=== PATIENT | male | born 1935 | race Caucasian/White ===

== ENCOUNTER 2016-11-13 22:38 | Inpatient (IN) ==
[2016-11-13] MEDS ORDERED: Ipratropium/Albuterol Neb 3 ML IH ONE (22:52)
[2016-11-13] MEDS ORDERED: 0.9 % Sodium Chloride 1,000 ML ONE (22:54)
[2016-11-13 23:04] LABS: Basophils % 0.2 %; Eosinophils # 0.4 K/mcL (0.0-0.6); Hemoglobin 10.1 g/dL (12.9-16.9); Immature Granulocytes % 0.3 % (0-4); Lymphocytes # 0.8 K/mcL (0.6-4.6); Lymphocytes % 11.6 %; Mean Corpuscular HGB Conc 31.6 g/dL (31.6-35.5); Mean Corpuscular Hemoglobin 30.1 pg (28.0-33.3); Mean Corpuscular Volume 95.5 fL (83.0-100.0); Mean Platelet Volume 10.6 fL (9.4-12.4); Monocytes # 0.2 K/mcL (0.0-1.3); Monocytes % 3.3 %; Neutrophils # 5.1 K/mcL (1.6-8.9); Platelet Count 138 K/mcL (140-400); Red Blood Count 3.35 M/mcL (4.19-5.50); Red Cell Distribution Width 14.6 % (11.5-14.5); Segmented Neutrophils % 78.6 %
[2016-11-13] MEDS ORDERED: 0.9 % Sodium Chloride 1,000 ML IVC ONE (23:08)
[2016-11-13 23:34] LABS: Albumin 2.8 g/dL (3.5-5.0); Bilirubin,Direct 0.3 mg/dL (0.0-0.5); Bilirubin,Indirect 0.6 mg/dL (0.0-1.2); Bilirubin,Total 0.9 mg/dL (0.2-1.2); Calcium 8.4 mg/dL (8.6-10.8); Globulin 2.7 g/dL (2.4-3.5); Magnesium 2.3 mg/dL (1.6-2.6); Phosphorous 4.7 mg/dL (2.3-4.7); Potassium 3.5 mEq/L (3.5-4.5); Total Protein 5.5 g/dL (6.0-8.3)
[2016-11-14] MEDS ORDERED: 0.9 % Sodium Chloride 1,000 ML IVC ONE (00:35)
[2016-11-14] MEDS ORDERED: Cefepime HCl 2,000 MG in D5% in Water (Mini-Bag+) 100 ML IVPB STA (01:04)
[2016-11-14] MEDS ORDERED: Vancomycin 1,500 MG in D5% in Water 250 ML IVPB STA (01:04)
[2016-11-14] MEDS ORDERED: Azithromycin 500 MG in D5% in Water 250 ML IVPB STA (01:04)
[2016-11-14] MEDS ORDERED: Lidocaine (Urojet) 10 ML JEL.PF.APP TP ONE (01:33)
--- NOTE | 2016-11-14 01:48 | Emergency Department Note ---
Addendum entered and electronically signed by Brian Damico DO 11/14/16 02 :30: Addendum his EKG read. EKG shows sinus bradycardia at 51 with normal axis and intervals. No ST elevation or depression. No T-wave inversions or flattening. There are inferior Q waves. No significant change from 10/10/2016. Original Note: Disposition Clinical Impression: Pneumonia, Hypotension Disposition: Admitted As Inpatient Condition: Fair Time of Disposition: 01:56 General Adult HPI - General Chief complaint: ED Syncope Stated complaint: hypotensive Source: family, EMS Mode of arrival: EMS Limitations: altered mental status, physical limitation, other Nursing Notes Reviewed: Yes Vital Signs Reviewed: Yes - History of Present Illness HPI Narrative: 81-year-old male presents from [facility] unit with chief complaint of low blood pressure and increased confusion from his baseline. Blood pressure has been running as well as 70 systolic. His appetite has been very poor. He has not had any nausea or vomiting. He has not had any changes in bowel movements or urination. He has not had any apparent pain or shortness of breath. Patient denies any symptoms at this time. History was extremely limited due to patient's Alzheimer's disease. Pain Scale: 1 - Related Data Home Medications Medication Instructions Recorded Confirmed Atorvastatin [Lipitor] 40 mg PO HS 08/28/16 11/14/16 Gabapentin [Neurontin] 300 mg PO TID 08/28/16 11/14/16 Metoprolol XL (24 HR) Succ [Toprol 25 mg PO DAILY 08/28/16 11/14/16 XL] Tamsulosin [Flomax] 0.8 mg PO DAILY 08/28/16 11/14/16 Aspirin 81 mg PO DAILY 10/10/16 11/14/16 Betamethasone Gloria 0.1% Crm 1 appl TP BID 10/10/16 11/14/16 [Valisone 0.1%] Ciclopirox [Loprox] 1 appl TP 3XW 10/10/16 11/14/16 Furosemide [Lasix] 20 mg PO DAILY 10/10/16 11/14/16 LORazepam [Ativan] 1 mg PO HS 10/10/16 11/14/16 Naproxen [Naprosyn] 500 mg PO BID 10/10/16 11/14/16 Nitroglycerin [Nitrostat] 0.4 mg SL AD PRN 10/10/16 11/14/16 Valsartan/Hydrochlorothiazide 1 tab PO DAILY 10/10/16 11/14/16 [Diovan Hct 320-12.5 mg Tab] Allergies Allergy/AdvReac Type Severity Reaction Status Date / Time ciprofloxacin [From Cipro] Allergy Hives Verified 11/13/16 22:41 Penicillins [PCN] Allergy Hives Verified 08/28/16 13:24 Sulfa (Sulfonamide Allergy Hives Verified 08/28/16 13:24 Antibiotics) All systems ED: reviewed and negative except as stated. Past Medical History - Past Medical History Attestation: Yes The following information was validated with the patient. Source: patient Medical history: Reports: myocardial infarction Psychiatric history: Reports: anxiety - Social History Smoking Status: Never smoker Smokeless Tobacco Status: No Alcohol use: Reports: none Drug use: Reports: none Physical Exam - Head Head exam: atraumatic, normocephalic, normal inspection - Eye Eye exam: Present: normal appearance, PERRL, EOMI - ENT ENT exam: normal exam, normal oropharynx, dry mucous membranes. - Neck Neck exam: Present: normal inspection, full ROM, trachea midline - Chest Chest inspection: Present: normal inspection, symmetric chest wall rise - Respiratory Respiratory exam: Clear to auscultation bilaterally without wheezes rales or rhonchi Cardiovascular Cardiovascular exam: Present: regular rate, normal rhythm, normal heart sounds - Abdominal Exam Abdominal exam: Present: soft, Non-Tender. Absent: tenderness, distention, guarding, rebound, rigidity - Extremities Exam Extremities exam: Present: Dressing removed from right heel foot ulcer. No purulent drainage or foul odor. No surrounding cellulitis. Positive pulses in bilateral lower extremities. Patient moves all extremities. - Back Exam Back exam: Present: normal inspection, full ROM. Absent: tenderness, CVA tenderness (R), CVA tenderness (L) - Neurological Exam Neurological exam: Present: alert, oriented X3, CN II-XII intact - Psychiatric Psychiatric exam: Present: normal affect, normal mood - Skin Skin exam: Present: warm, dry, intact, normal color - General Limitations: altered mental status, physical limitation, other General appearance: alert Course - Reevaluation(s) Reevaluation #1: Evaluation here does not show any fever or leukocytosis, but the patient does have possible bilateral lower lobe pneumonia. Given the hypotension and altered mental status we will treat this with broad-spectrum antibiotic. We were unable to obtain a urine despite multiple catheterization attempts. Patient was emptying urine on his own and does not have a distended bladder on bedside ultrasound. He does not need emergent urology consultation. We will admit him for hypotension and pneumonia. Lactate was 1.8. Blood pressure 86/ 55 after 2 L of normal saline. Given the patient is comfort care, we will not place a central line at this time. He has good peripheral access. Family at bedside would like him admitted for further management of his hypotension and possible infection. Given his multiple blood pressure medications I wonder if his medications are more contributing to his symptoms then any possible infection. Regardless, he will come in for observation overnight and further evaluation. Accepted by the hospitalist. Time: 01:56 Vital Signs Temperature 97.8 F 11/13/16 22:41 Pulse Rate 53 11/13/16 22:41 Respiratory Rate 16 11/13/16 22:41 Blood Pressure 79/50 11/13/16 22:41 O2 Sat by Pulse Oximetry 94 L 11/13/16 22:41 Temperature 96.8 F L 11/14/16 04:00 Pulse Rate 80 11/14/16 06:00 Respiratory Rate 16 11/14/16 04:00 Blood Pressure 116/62 11/14/16 06:00 O2 Sat by Pulse Oximetry 98 11/14/16 04:59 Oxygen Delivery Oxygen Delivery Nasal Cannula Medical Decision Making - Lab Data Result diagrams: 11/14/16 04:52 11/14/16 04:52 Lab Results 11/13/16 11/13/16 11/13/16 Range/Units 22:49 22:49 22:49 WBC 6.5 (4.3-11.1) K/mcL RBC 3.35 L (4.19-5.50) M/mcL Hgb 10.1 L (12.9-16.9) g/dL Hct 32.0 L (37.5-50.1) % MCV 95.5 (83.0-100.0) fL MCH 30.1 (28.0-33.3) pg MCHC 31.6 (31.6-35.5) g/dL RDW 14.6 H (11.5-14.5) % Plt Count 138 L (140-400) K/mcL MPV 10.6 (9.4-12.4) fL Immature Gran % 0.3 (0-4) % Seg Neutrophils % 78.6 % Lymphocytes % 11.6 % Monocytes % 3.3 % Eosinophils % 6.0 % Basophils % 0.2 % Neutrophils # 5.1 (1.6-8.9) K/mcL Lymphocytes # 0.8 (0.6-4.6) K/mcL Monocytes # 0.2 (0.0-1.3) K/mcL Eosinophils # 0.4 (0.0-0.6) K/mcL Basophils # 0.0 (0.0-0.2) K/mcL Sodium 145 (136-145) mEq/L Potassium 3.5 (3.5-4.5) mEq/L Chloride 106 (98-109) mEq/L Carbon Dioxide 28 (19-29) mEq/L BUN 37 H (8-26) mg/dL Creatinine 1.52 H (0.72-1.25) mg/dL Est GFR ( Amer) 53 L (> 60) Est GFR (Non-Af Amer) 44 L (> 60) BUN/Creatinine Ratio 24 (6-26) Glucose 138 H (70-99) mg/dL Calculated Osmolality 311 H (280-300) Lactic Acid 1.8 (0.5-2.2) mmol/L Calcium 8.4 L (8.6-10.8) mg/dL Phosphorus 4.7 (2.3-4.7) mg/dL Magnesium 2.3 (1.6-2.6) mg/dL Total Bilirubin 0.9 (0.2-1.2) mg/dL Direct Bilirubin 0.3 (0.0-0.5) mg/dL Indirect Bilirubin 0.6 (0.0-1.2) mg/dL AST 19 (5-34) Units/L ALT 20 (0-55) Units/L Alkaline Phosphatase 97 (38-126) Units/L Troponin I (0-0.03) ng/mL Serum Total Protein 5.5 L (6.0-8.3) g/dL Albumin 2.8 L (3.5-5.0) g/dL Globulin 2.7 (2.4-3.5) g/dL Albumin/Globulin Ratio 1.0 L (1.1-2.2) 11/13/16 Range/Units 22:49 WBC (4.3-11.1) K/mcL RBC (4.19-5.50) M/mcL Hgb (12.9-16.9) g/dL Hct (37.5-50.1) % MCV (83.0-100.0) fL MCH (28.0-33.3) pg MCHC (31.6-35.5) g/dL RDW (11.5-14.5) % Plt Count (140-400) K/mcL MPV (9.4-12.4) fL Immature Gran % (0-4) % Seg Neutrophils % % Lymphocytes % % Monocytes % % Eosinophils % % Basophils % % Neutrophils # (1.6-8.9) K/mcL Lymphocytes # (0.6-4.6) K/mcL Monocytes # (0.0-1.3) K/mcL Eosinophils # (0.0-0.6) K/mcL Basophils # (0.0-0.2) K/mcL Sodium (136-145) mEq/L Potassium (3.5-4.5) mEq/L Chloride (98-109) mEq/L Carbon Dioxide (19-29) mEq/L BUN (8-26) mg/dL Creatinine (0.72-1.25) mg/dL Est GFR ( Amer) (> 60) Est GFR (Non-Af Amer) (> 60) BUN/Creatinine Ratio (6-26) Glucose (70-99) mg/dL Calculated Osmolality (280-300) Lactic Acid (0.5-2.2) mmol/L Calcium (8.6-10.8) mg/dL Phosphorus (2.3-4.7) mg/dL Magnesium (1.6-2.6) mg/dL Total Bilirubin (0.2-1.2) mg/dL Direct Bilirubin (0.0-0.5) mg/dL Indirect Bilirubin (0.0-1.2) mg/dL AST (5-34) Units/L ALT (0-55) Units/L Alkaline Phosphatase (38-126) Units/L Troponin I 0.03 (0-0.03) ng/mL Serum Total Protein (6.0-8.3) g/dL Albumin (3.5-5.0) g/dL Globulin (2.4-3.5) g/dL Albumin/Globulin Ratio (1.1-2.2) Attestation Statement - Attestation Attestation: For this encounter, I have reviewed the resident, [employer], or PA documentation, treatment plan, and medical decision making; and I have had face to face time with this patient. History source: Patient is unable to provide information for this note. Info was gathered from the patient, hospital staff, the patient's chart. History limitations: Patient condition Medications: As per nurses note 81-year-old male brought in by EMS with concerns of possible sepsis. Family states the patient has become increasingly confused at the rehabilitation facility. He has swelling and erythema of the distal right lower extremity. He also has a possible urinary tract infection which was diagnosed at the rehabilitation facility. Patient was started on Keflex immediately prior to arrival. Patient is DNR comfort care however the family requests that the patient be admitted and treated for sepsis if necessary. Patient's blood pressures generally in the 140s to 150s systolic however today on evaluation patient's blood pressure is 75-80 on initial evaluation. Patient is unable to give a history regarding his symptoms. Patient was ambulatory many months ago however he is in a rehabilitation facility because he has been unable to ambulate due to a fracture in his feet. Patient was initially hypotensive on evaluation however this improved mildly with IV fluids. Patient was started on cefepime, Azithromycin, vancomycin to treat the his hospital urinary tract infection, possible cellulitis and possible pneumonia. Patient however did not have a fever, did not have leukocytosis. Despite these things, because of his low blood pressure patient will be treated as possible sepsis until further evaluation can be obtained.
[2016-11-14] MEDS ORDERED: 0.9 % Sodium Chloride 1,000 ML IVC SCH (02:30)
[2016-11-14] MEDS ORDERED: Nitroglycerin 0.4 MG TAB.SUBL SL PRN (03:04)
[2016-11-14] MEDS ORDERED: Mag Hydrox/Al Hydrox/Simeth 30 ML UDC PO PRN (03:09)
[2016-11-14] MEDS ORDERED: Pantoprazole 40 MG VIAL IVP STA (03:09)
[2016-11-14] MEDS ORDERED: Acetaminophen 325 MG TABLET PO PRN (03:09)
[2016-11-14] MEDS ORDERED: Naloxone 0.4 MG/ML INJ IVP PRN (03:09)
[2016-11-14] MEDS ORDERED: Albuterol 2.5 MG/3 ML NEBULIZER IH PRN (03:09)
[2016-11-14] MEDS ORDERED: Benzonatate 100 MG CAPSULE PO PRN (03:09)
[2016-11-14] MEDS ORDERED: Ondansetron 4 MG/2 ML VIAL IVP PRN (03:09)
--- NOTE | 2016-11-14 03:34 | Internal Med History&Physical ---
Date of Encounter: 11/14/16 Time of Encounter: 03:00 Assessment and Plan (1) Syncope and collapse Status: Acute . (2) Syncope due to orthostatic hypotension Status: Acute . (3) Hypovolemic shock Status: Acute . (4) Acute kidney injury superimposed on CKD Status: Acute . (5) Adult failure to thrive syndrome Status: Chronic . (6) Dementia in Alzheimer's disease Status: Chronic . (7) Delirium due to conditions classified elsewhere Status: Acute . (8) Toxic metabolic encephalopathy Status: Acute . (9) Protein-calorie malnutrition, moderate Status: Chronic . (10) HCAP (healthcare-associated pneumonia) Status: Acute . (11) Severe sepsis with acute organ dysfunction Status: Acute . (12) Cellulitis and abscess of foot Status: Acute . (13) Complete immobility due to severe physical disability or frailty Status: Chronic . (14) Urinary (tract) obstruction Status: Acute . Internal Medicine - H&P: HPI Chief complaint: Syncope. Hypotension. Admitted From: Emergency Dept Plans for Post Hospital Care: Transfer Alf Facility History of present illness: Mr. Rogers is a 81 year old male history significant for Alzheimer's type dementia, hypertension, dyslipidemia, peripheral neuropathy, BPH/prostatism/ neurogenic bladder, H/O urethral stricture, H/O E coli MDR UTIs, CKD III, anxiety disorder, DDD of spine/severe cervical spinal stenosis, osteoarthritis, osteopenia, CAD/PCTAstents/AMI, mild , H/O CVA/TIAs, paroxysmal atrial fibrillation (not on chronic anticoagulation due to fall risk), nonsmoker. The patient was visited and interviewed and examined. Patient is admitted to [facility] services from [facility] at point of persistent low blood pressure and confusion. Pressure prior to arrival was just running 70 systolic. Appetite had been poor without nausea or vomiting or any acute change in frequency or character bowel movements or urination. There is no report of any acute chest pain complaint shortness of air breathing. When questioned denied any symptoms at the present time. Further questioning greatly limited by patient's Alzheimer's dementia. Findings in the ED: Temperature 97.8 pulse 53 respirations 16 BP 79/50. Saturation 94% 2 L per nasal cannula. WBC 6.5 hemoglobin 10.1 platelets 138, 000. RDW 14.6. Differential normal. Metabolic panel finds BUN 37, creatinine 1.52. GFR 44. Glucose 138 osmolality 311. Lactic acid 1.8. Hepatic function normal. Albumin 2.8-5.5. Troponin 0.03. Chest x-ray demonstrates bibasilar atelectasis versus pneumonia right greater than left. Lung volumes low. Preliminary impression suggests severe sepsis present at admission. Multiple sources for infection were demonstrated this included: Possible bibasilar healthcare associated pneumonia; bilateral right greater than left cellulitis with pressure wounds feet and possible phlebitis of left lower extremity; bladder outlet obstruction due to ureteral strictures and likely complicated UTI. Hypotension consistent with septic-hypovolemic shock manifest in this setting. Acute kidney injury on chronic kidney disease stage III with associated metabolic and electrolyte derangements also noted. Toxic metabolic encephalopathy with delirium superimposed on patient's chronic encephalopathy of Alzheimer's dementia noted. The patient presents increased risk for further acute clinical decline and morbidity in this setting given his advanced age, frailty, clinical findings, presenting chief complaints and associated comorbidities the setting of evolving multiorgan derangements. Workup and treatment will progress comprehensively. Cumulative laboratory and radiographic data base was reviewed, considered and discussed. Pertinent ancillary medical records including ECW and PCI documentation was reviewed and considered. Given the patient's presenting concerns, past medical history, clinical findings and symptoms, he is admitted at this time will undergo further evaluation and disposition. Orders were written as per the computerized physician short order cook system.......................................................................... .................... Consultative opinions will be sought as clinical circumstances justify. Pain management needs will be addressed. Laboratory and radiographic data base will be updated as appropriate. Studies include: Cultures blood and urine and sputum, PT/INR, APTT, Ddimer, cardiac injury panel, BNP, CPK, LDH, prolactin, metabolic and hematologic panel, magnesium, phosphorus, ionized calcium, thyroid panel, lipid profile, A1c, C- peptide, CRP, sed rate, respiratory infection profile, respiratory virus panel, blood gas, UA, cortisol, ammonia, lactic acid, serologies, etc. Precautions: Aspiration, fall, delirium protocol/surveillance initiated. Telemetry with continuous hemodynamic monitoring and pulse oximetry initiated. Orthostatic vital signs. Empiric antibiotic coverage: Intravenous vancomycin, azithromycin, meropenem pending culture data. Special studies: CT chest/Head/abd-pelvis, chest x-ray, telemetry, EKG, bladder scan/postvoid, US retroperitoneum, LE venous duplex, carotid US. Pulmonary toilet: Incentive spirometry, aerosol bronchodilator, mucolytic, antitussive, supplemental oxygen. Corticosteroid therapy. CPAP/BiPAP supplemental oxygen delivery employed. Aerosol Mucomyst therapy may be employed. Fluid and electrolyte repletion efforts will proceed. Careful attention to fluid balance and renal recovery will be emphasized. Avoidance of nephrotoxic exposure and adverse drug drug interaction in the setting of impaired renal function will be monitored closely. Acute coronary syndrome protocol/surveillance initiated. Acute [employer] injury protocol/surveillance initiated. Intravenous vasopressor therapy: IV dopamine drip. Intravenous albumin infusions. Typed and Screened. DVT and PUD prophylaxis initiated: PPI therapy, intermittent pneumatic cuffs. Subcutaneous heparin. Early ambulation will be encouraged. Immunization updates recommended. Influenza and pneumococcal vaccinations as part of ongoing preventative healthcare recommendations strongly recommended. Smoking cessation counseling briefly addressed. Patient is a nonsmoker. Advanced care directive discussion briefly addressed. Daughter is at the bedside presenting next kin and power of laborer cheesemaking. Patient does not declare any healthcare restrictions at this time. Cardiovascular risk appraisal and cardiovascular risk reduction efforts will be emphasized. Physical and occupational therapy may be consulted to evaluate/assess patient's functional capacity and progress mobility if circumstances permit. Sliding scale insulin coverage, ADA dietary restraint and schedule an as-needed basis fingerstick glucose assessments were initiated. Nutrition/diabetes education counseling may be considered as circumstances justify. Outpatient medication schedules will be reviewed, confirmed and facilitated as appropriate. Reconciliation of home treatments including adjustments, substitutions and reintroduction into the treatment regimen will address necessary maintenance therapies for chronic pre-existing medical conditions. Plan of care has been reviewed and discussed in detail with the patient. Questions addressed. Hospital course dictated by clinical findings, treatment response and potential consultative interventions. Patient is at high risk for further acute clinical decline and morbidity due to his advanced age,frailty, presenting chief complaints and comorbidities against a background of evolving multiorgan derangements. Condition is serious. Critical. Prognosis is guarded. CODE STATUS is reported as full. Past Med Surg Social Fam HX - Past Medical History Source: old records reviewed Medical history: arthritis, atrial fibrillation, cardiomyopathy (Head CT October 2014 demonstrated atrial fibrillation with uncontrolled ventricular response. Marked right axis deviation. Q wave in inferior and lateral leads. T-wave inversion present. Inferior infarction age undetermined. Lateral infarction age undetermined. Deep S wave in lateral leads. Rightward QRS axis. Right ventricular hypertrophy. Probably progression. Abnormal EKG.), coronary artery disease, dementia, GERD, GI bleed (History of C. difficile colitis.), hyperlipidemia, hypertension, myocardial infarction, osteoporosis, peripheral artery disease (Carotid artery atherosclerosis. Moderate 40-59% stenosis of the right ICA versus nonstenotic plaque of left ICA.), renal disease (Urinary retention. BPH/prostatism. Recurrent neurogenic bladder. History of ureteral stenosis.), TIA (History of TIA with transient expressive aphasia. History of TIA with gait disturbance.), valvular heart disease, other Psychiatric history: anxiety, other - Past Surgical History Surgical History: angioplasty/stent, appendectomy, cataract, herniorrhaphy, orthopedic, other (Shoulder surgery. Cervical spine surgery.), sinus surgery ( Tonsillectomy- adenoidectomy), other (Prostate surgery.) - Social History Smoking Status: Former smoker Smokeless Tobacco Status: No Alcohol use: none Drug use: none Current living situation: [facility] Activity Level: Uses cane/walker, Mostly sedentary Recent Out of Country Travel Within the Last 8 Weeks: No Exposure or Possible Exposure to Illness During Travel: No Internal Medicine - H&P: Meds Betamethasone Gloria 0.1% Crm [Valisone 0.1%] 1 appl TP BID 10/10/16 [History] LORazepam [Ativan] 1 mg PO HS 10/10/16 [History] Nitroglycerin [Nitrostat] 0.4 mg SL AD PRN 10/10/16 [History] Haloperidol [Haldol] 5 mg PO TID 11/14/16 [History] Furosemide [Lasix] 20 mg PO DAILY 11/24/16 [History] Gabapentin [Neurontin] 300 mg PO TID 11/24/16 [History] Metoprolol XL (24 HR) Succ [Toprol XL] 25 mg PO DAILY 11/24/16 [History] Valsartan/Hydrochlorothiazide [Valsartan-Hctz 320-12.5 mg Tab] 1 tab PO DAILY [History] Allergies ciprofloxacin [From Cipro] Allergy (Verified 11/14/16 08:15) Hives Penicillins [PCN] Allergy (Verified 11/14/16 08:15) Hives Sulfa (Sulfonamide Antibiotics) Allergy (Verified 11/14/16 08:15) Hives ROS unobtainable: due to mental status All Systems PM: A 10-system review of systems was performed and is negative for pertinent findings except as documented above in the HPI. The patient presents as a poor historian. Details are collected from medical records, EMS and staff elicited at triage information, and family. - Constitutional Constitutional: as per HPI - EENT Eyes: as per HPI Ears: as per HPI Nose, mouth and throat: as per HPI - Cardiovascular Cardiovascular ROS IM: as per HPI - Respiratory Respiratory: as per HPI - Gastrointestinal Gastrointestinal: as per HPI - Genitourinary Genitourinary ROS male: as per HPI - Musculoskeletal Musculoskeletal ROS IM: as per HPI - Integumentary Integumentary IM: as per HPI - Neurological Neurological ROS: as per HPI - Psychiatric Psychiatric: as per HPI - Endocrine Endocrine IM: as per HPI - Hematologic/Lymphatic Hematologic/Lymphatic: as per HPI - Allergic/Immunologic Allergic/Immunologic: as per HPI - Constitutional Vitals: Temp Pulse Resp BP Pulse Ox 97.8 F 54 16 84/51 95 11/13/16 22:41 11/14/16 02:25 11/14/16 03:21 11/14/16 03:21 11/14/16 02:25 General appearance: Present: cachectic, cooperative, A&O X 1, obese, severe distress. Absent: answers questions appropriately - Head Head exam: Present: atraumatic, normocephalic - Eye Eye exam: Present: EOMI, PERRL, conjuntiva pink, sclera anicteric Pupils: Present: normal accommodation, PERRL - ENT ENT exam: Present: mucous membranes dry, normal external ear exam, normal oropharynx - Neck Neck exam general surgery: Present: full ROM, supple, trachea midline. Absent: lymphadenopathy, tenderness, nuchal rigidity - Respiratory Respiratory exam: Present: decreased breath sounds, rhonchi. Absent: accessory muscle use, rales, wheezes - Cardiovascular Cardiovascular exam: Present: distant heart sounds, RRR, +S1, +S2. Absent: diastolic murmur, gallop, rubs, systolic murmur - GI/Abdominal GI/Abdominal exam: Present: normal bowel sounds, soft, no peritoneal signs. Absent: distended, tenderness - Extremities Exam Extremities exam: Present: joint swelling, mottling, pedal edema, tenderness, warm, radial pulses palpable and symetrical. Absent: calf tenderness, cyanotic , full ROM, normal capillary refill, normal inspection - Neurological Exam Neurological exam: Present: altered, CN II-XII intact, motor sensory deficit. Absent: alert, oriented X3, pronater drift, facial droop, speech deficit - Expanded Neurological Exam Neurological exam expanded: Present: ataxia, protecting the airway, tremor. Absent: expressive aphasia, receptive aphasia Patient oriented to: Present: person. Absent: place, time Speech: Present: garbled Coma Scale Eye Opening: To Pain Coma Scale Motor Response: Obeys Commands Coma Scale Verbal Response: Inappropriate Coma Scale Total: 11 - Psychiatric Psychiatric exam: Present: flat affect - Skin Skin exam: Present: dry, intact, mottled, warm. Absent: petechiae, rash, urticaria, vesicles Internal Med - H&P Results - Labs CBC & Chem 7: 11/23/16 06:03 11/22/16 04:30 - Impressions Vital Signs Temp Pulse Resp BP Pulse Ox 11/14/16 03:21 16 84/51 11/14/16 02:25 54 18 86/49 95 11/13/16 23:20 16 95 11/13/16 22:41 97.8 F 53 16 79/50 94 L Intake and Output 11/13/16 11/13/16 11/14/16 15:59 23:59 07:59 Intake Total 2099 Balance 2099 Intake: IV Fluids 2099 0.9 % Sodium Chloride 1, 2000 / 2000 000 ML @ 9999 mls/hr IVC .Q6M ONE Rx#:[id number] Maxipime 2,000 MG In 100 / 100 Dextrose 5% (Minibag+) 100 ML 100 ML @ 200 mls/ hr IVPB NOW STA Rx#: [id number] Other: Weight 86.636 kg Short CBC 11/13/16 Range/Units 22:49 WBC 6.5 (4.3-11.1) K/mcL Hgb 10.1 L (12.9-16.9) g/dL Hct 32.0 L (37.5-50.1) % Plt Count 138 L (140-400) K/mcL Neutrophils # 5.1 (1.6-8.9) K/mcL BMP 11/13/16 Range/Units 22:49 Sodium 145 (136-145) mEq/L Potassium 3.5 (3.5-4.5) mEq/L Chloride 106 (98-109) mEq/L Carbon Dioxide 28 (19-29) mEq/L BUN 37 H (8-26) mg/dL Creatinine 1.52 H (0.72-1.25) mg/dL Glucose 138 H (70-99) mg/dL Calcium 8.4 L (8.6-10.8) mg/dL Cardiac Enzymes 11/13/16 Range/Units 22:49 Troponin I 0.03 (0-0.03) ng/mL Liver Function 11/13/16 Range/Units 22:49 Total Bilirubin 0.9 (0.2-1.2) mg/dL Direct Bilirubin 0.3 (0.0-0.5) mg/dL AST 19 (5-34) Units/L ALT 20 (0-55) Units/L Alkaline Phosphatase 97 (38-126) Units/L Albumin 2.8 L (3.5-5.0) g/dL Abnormal lab results RBC 3.35 M/mcL (4.19-5.50) L 11/13/16 22:49 Hgb 10.1 g/dL (12.9-16.9) L 11/13/16 22:49 Hct 32.0 % (37.5-50.1) L 11/13/16 22:49 RDW 14.6 % (11.5-14.5) H 11/13/16 22:49 Plt Count 138 K/mcL (140-400) L 11/13/16 22:49 BUN 37 mg/dL (8-26) H 11/13/16 22:49 Creatinine 1.52 mg/dL (0.72-1.25) H 11/13/16 22:49 Est GFR ( Amer) 53 (> 60) L 11/13/16 22:49 Est GFR (Non-Af Amer) 44 (> 60) L 11/13/16 22:49 Glucose 138 mg/dL (70-99) H 11/13/16 22:49 Calculated Osmolality 311 (280-300) H 11/13/16 22:49 Calcium 8.4 mg/dL (8.6-10.8) L 11/13/16 22:49 Serum Total Protein 5.5 g/dL (6.0-8.3) L 11/13/16 22:49 Albumin 2.8 g/dL (3.5-5.0) L 11/13/16 22:49 Albumin/Globulin Ratio 1.0 (1.1-2.2) L 11/13/16 22:49 Allergies Allergy/AdvReac Type Severity Reaction Status Date / Time ciprofloxacin [From Cipro] Allergy Hives Verified 11/13/16 22:41 Penicillins [PCN] Allergy Hives Verified 08/28/16 13:24 Sulfa (Sulfonamide Allergy Hives Verified 08/28/16 13:24 Antibiotics) Laboratory Results WBC 6.5 K/mcL (4.3-11.1) 11/13/16 22:49 RBC 3.35 M/mcL (4.19-5.50) L 11/13/16 22:49 Hgb 10.1 g/dL (12.9-16.9) L 11/13/16 22:49 Hct 32.0 % (37.5-50.1) L 11/13/16 22:49 MCV 95.5 fL (83.0-100.0) 11/13/16 22:49 MCH 30.1 pg (28.0-33.3) 11/13/16 22:49 MCHC 31.6 g/dL (31.6-35.5) 11/13/16 22:49 RDW 14.6 % (11.5-14.5) H 11/13/16 22:49 Plt Count 138 K/mcL (140-400) L 11/13/16 22:49 MPV 10.6 fL (9.4-12.4) 11/13/16 22:49 Immature Gran % 0.3 % (0-4) 11/13/16 22:49 Seg Neutrophils % 78.6 % 11/13/16 22:49 Lymphocytes % 11.6 % 11/13/16 22:49 Monocytes % 3.3 % 11/13/16 22:49 Eosinophils % 6.0 % 11/13/16 22:49 Basophils % 0.2 % 11/13/16 22:49 Neutrophils # 5.1 K/mcL (1.6-8.9) 11/13/16 22:49 Lymphocytes # 0.8 K/mcL (0.6-4.6) 11/13/16 22:49 Monocytes # 0.2 K/mcL (0.0-1.3) 11/13/16 22:49 Eosinophils # 0.4 K/mcL (0.0-0.6) 11/13/16 22:49 Basophils # 0.0 K/mcL (0.0-0.2) 11/13/16 22:49 Sodium 145 mEq/L (136-145) 11/13/16 22:49 Potassium 3.5 mEq/L (3.5-4.5) 11/13/16 22:49 Chloride 106 mEq/L (98-109) 11/13/16 22:49 Carbon Dioxide 28 mEq/L (19-29) 11/13/16 22:49 BUN 37 mg/dL (8-26) H 11/13/16 22:49 Creatinine 1.52 mg/dL (0.72-1.25) H 11/13/16 22:49 Est GFR ( Amer) 53 (> 60) L 11/13/16 22:49 Est GFR (Non-Af Amer) 44 (> 60) L 11/13/16 22:49 BUN/Creatinine Ratio 24 (6-26) 11/13/16 22:49 Glucose 138 mg/dL (70-99) H 11/13/16 22:49 Calculated Osmolality 311 (280-300) H 11/13/16 22:49 Lactic Acid 1.8 mmol/L (0.5-2.2) 11/13/16 22:49 Calcium 8.4 mg/dL (8.6-10.8) L 11/13/16 22:49 Phosphorus 4.7 mg/dL (2.3-4.7) 11/13/16 22:49 Magnesium 2.3 mg/dL (1.6-2.6) 11/13/16 22:49 Total Bilirubin 0.9 mg/dL (0.2-1.2) 11/13/16 22:49 Direct Bilirubin 0.3 mg/dL (0.0-0.5) 11/13/16 22:49 Indirect Bilirubin 0.6 mg/dL (0.0-1.2) 11/13/16 22:49 AST 19 Units/L (5-34) 11/13/16 22:49 ALT 20 Units/L (0-55) 11/13/16 22:49 Alkaline Phosphatase 97 Units/L (38-126) 11/13/16 22:49 Troponin I 0.03 ng/mL (0-0.03) 11/13/16 22:49 Serum Total Protein 5.5 g/dL (6.0-8.3) L 11/13/16 22:49 Albumin 2.8 g/dL (3.5-5.0) L 11/13/16 22:49 Globulin 2.7 g/dL (2.4-3.5) 11/13/16 22:49 Albumin/Globulin Ratio 1.0 (1.1-2.2) L 11/13/16 22:49 Impressions Chest X-Ray 11/13/16 22:52 IMPRESSION: Bibasilar atelectasis or pneumonia. D/ / Darek Burgos MD / Darek Burgos MD Interpreting Provider: Darek Burogs MD
[2016-11-14] MEDS ORDERED: Vancomycin 1,250 MG in D5% in Water 250 ML IVPB SCH (04:00)
[2016-11-14] MEDS: Azithromycin 500 MG in D5% in Water 250 ML IVPB SCH (05:05)
[2016-11-14 05:11] LABS: Hematocrit 29.9 % (37.5-50.1); Hemoglobin 9.2 g/dL (12.9-16.9); Mean Corpuscular HGB Conc 30.8 g/dL (31.6-35.5); Mean Corpuscular Volume 97.4 fL (83.0-100.0); Mean Platelet Volume 10.4 fL (9.4-12.4); Platelet Count 104 K/mcL (140-400); Red Blood Count 3.07 M/mcL (4.19-5.50); Red Cell Distribution Width 14.7 % (11.5-14.5)
[2016-11-14 05:14] LABS: VBG HCO3 32.2 mEq/L (21-27); VBG PH 7.29 pH Units (7.32-7.42)
[2016-11-14] MEDS: *HR* Heparin 5,000 UNIT/ML VIAL SQ SCH ×2 (05:14→18:12)
[2016-11-14 05:18] LABS: Hemoglobin A1C 5.6 %
[2016-11-14 05:30] LABS: BUN/Creatinine Ratio 26 (6-26); Blood Urea Nitrogen 33 mg/dL (8-26); Calcium 7.8 mg/dL (8.6-10.8); Carbon Dioxide 27 mEq/L (19-29); Chloride 108 mEq/L (98-109); Chol/HDL Ratio 3.6 (0-4.9); Cholesterol 89 mg/dL (< 200); Glucose 125 mg/dL (70-99); HDL Cholesterol 25 mg/dL (40-59); LDL Cholesterol,Calculated 52 mg/dL (0-99); Osmolality,Calculated 305 (280-300); Potassium 3.1 mEq/L (3.5-4.5); Sodium 143 mEq/L (136-145); Triglycerides 62 mg/dL (< 150); eGFR For African Americans > 60 (> 60); eGFR For Non-African Americans 55 (> 60)
[2016-11-14 05:56] LABS: Thyroid Stimulating Hormone 0.418 mcIU/mL (0.350-4.840); Triiodothyronine (T3) Free 1.47 pg/mL (1.71-3.71)
[2016-11-14 06:06] LABS: C-Reactive Protein 135 mg/L (Less than 5)
[2016-11-14] MEDS ORDERED: Potassium Chloride 40 MEQ, Lidocaine 1% 2 ML in D5% in Water 500 ML IVPB ONE (06:36)
[2016-11-14] MEDS ORDERED: Calcium Gluconate 1,000 MG in D5% in Water 100 ML IVPB ONE (06:38)
[2016-11-14] MEDS: Ipratropium/Albuterol Neb 3 ML IH SCH ×4 (07:23→22:36)
[2016-11-14] MEDS: Aztreonam 2,000 MG in D5% in Water (Mini-Bag+) 100 ML IVPB SCH ×2 (07:43→18:06)
[2016-11-14] MEDS: Aspirin 81 MG TAB.CHEW PO SCH (08:42)
[2016-11-14] MEDS: Gabapentin 300 MG CAPSULE PO SCH ×3 (08:42→20:39)
[2016-11-14] MEDS ORDERED: Metoprolol XL (24 HR) Succ 25 MG TAB.ER.24H PO SCH (09:00)
--- NOTE | 2016-11-14 12:23 | Internal Med Progress Note ---
Date of Encounter: 11/14/16 Time of Encounter: 10:00 - Assessment and plan (1) Cellulitis and abscess of foot Current Visit: Yes Status: Acute Assessment and plan: Patient is on antibiotics. We will continue wound care and consult podiatry. (2) HCAP (healthcare-associated pneumonia) Current Visit: Yes Status: Acute Assessment and plan: Patient has pneumonia, He is from custodial, treat patient health care associated pneumonia. Continue antibiotics. CT chest ordered. (3) Hypotension Current Visit: Yes Status: Acute Assessment and plan: Etiology is undetermined. Possibly due to hypovolemic status. Improved after IV fluid in ER. Off dopamine drip now. Will continue closely monitor BP level. Qualifiers: Hypotension type: other hypotension type Qualified Code(s): I95.89 - Other hypotension (4) Urinary (tract) obstruction Current Visit: Yes Status: Acute Assessment and plan: Patient has a history of BPH and Following urology as outpatient. Failed to insert Jara by ER nurse. Urology consult called. (5) Dementia in Alzheimer's disease Current Visit: Yes Status: Chronic Assessment and plan: We will continue home medications (6) DVT prophylaxis Current Visit: Yes Status: Acute Assessment and plan: EPCD - Time Spent With Patient 25 - 35 minutes - Subjective Interval history: Patient is a 81-year-old male admitted for hypotension and pneumonia. His past medical history is significant for dementia, CAD, hyperlipidemia, hypertension, PAD, A. fib, TIA, BPH. Patient was seen and examined, patient complaining of abdominal pain. He also said that he has not urinated for 2 days. In ER, Jara catheter was tried but failed. Urology consult was called for acute urinary retention. Hypotension has improved, off dopamine drip now. Patient is on antibiotics for pneumonia. Will continue close monitoring. - Constitutional Vitals: Temp Pulse Resp BP Pulse Ox 97.8 F 84 20 132/78 99 11/14/16 11:00 11/14/16 11:00 11/14/16 11:00 11/14/16 11:11/14/16 11:00 General appearance: Present: cachectic, cooperative, A&O X 1, obese, severe distress. Absent: answers questions appropriately - Head Head exam: Present: atraumatic, normocephalic - Eye Eye exam: Present: PERRL, conjuntiva pink, sclera anicteric Pupils: Present: PERRL - Neck Neck exam general surgery: Present: supple, trachea midline. Absent: lymphadenopathy - Respiratory Respiratory exam: Present: CTAB. Absent: accessory muscle use, rales, rhonchi, wheezes - Cardiovascular Cardiovascular exam: Present: RRR, +S1, +S2. Absent: diastolic murmur, gallop, rubs, systolic murmur - GI/Abdominal GI/Abdominal exam: Present: normal bowel sounds, soft, tenderness, no peritoneal signs. Absent: distended - Extremities Exam Extremities exam: Present: warm, radial pulses palpable and symetrical. Absent : calf tenderness, cyanotic, pedal edema - Neurological Exam Neurological exam: Present: CN II-XII intact, oriented X3, no focal deficits. Absent: pronater drift, facial droop, speech deficit - Skin Skin exam: Present: dry, intact Internal Medicine: Result - Labs CBC & Chem 7: 11/14/16 04:52 11/14/16 04:52 Labs: Short CBC 11/14/16 Range/Units 04:52 WBC 5.8 (4.3-11.1) K/mcL Hgb 9.2 L (12.9-16.9) g/dL Hct 29.9 L (37.5-50.1) % Plt Count 104 L (140-400) K/mcL BMP 11/14/16 04:52 Sodium 143 Potassium 3.1 L Chloride 108 Carbon Dioxide 27 BUN 33 H Creatinine 1.25 Glucose 125 H Calcium 7.8 L Cardiac Enzymes 11/14/16 11/14/16 Range/Units 04:52 10:47 Troponin I 0.02 0.03 (0-0.03) ng/mL Consult Discharge Plan - Plan Referrals: Jamie Santos MD [Primary Care Provider] -
[2016-11-14 13:37] LABS: Bilirubin,Urine Moderate (Negative); Blood,Urine Large (Negative); Clarity,Urine Cloudy (Clear); Color,Urine Red (Yellow); Glucose,Urine (UA) Normal (Normal); Ketones,Urine Trace mg/dL (Negative); Leukocyte Esterase,Urine Small (Negative); Nitrite,Urine Positive (Negative); PH,Urine 5.5 pH Units (5.0-8.0); Protein,Urine >=300 mg/dL (Neg-Trace); Specific Gravity,Urine 1.019 (1.010-1.025); Urobilinogen,Urine Normal (Normal)
--- NOTE | 2016-11-14 14:38 | Urology - Consult Note ---
Date of Encounter: 11/14/16 Time of Encounter: 12:00 - Assessment and Plan (1) Urethral stricture Current Visit: Yes Status: Acute Assessment and plan: I attempted to place a 12 Icelandic Carter catheter without success. I elected to move to a suprapubic catheter based on my prior knowledge of his significant bladder neck contractures and strictures. 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 May need to consider placement of a hematuria catheter. He has a history of significant hematuria and clot retention. Urology CN:KIM Consult date: 11/14/16 Reason for consult Urology: Difficult Carter History of present illness: Patient is well-known to urology service with a history of urinary retention, greenlight photo vaporization of the prostate, significant bleeding complications requiring embolization of the prostate. Also has significant urethral and bladder neck strictures. Presents with confusion, abdominal pain, urinary retention. Emergency room unable to place Carter catheter. Bladder scan over 600 Past Med Surg Social Fam HX - Past Medical History Medical history: arthritis, atrial fibrillation, cardiomyopathy (Head CT October 2014 demonstrated atrial fibrillation with uncontrolled ventricular response. Marked right axis deviation. Q wave in inferior and lateral leads. T-wave inversion present. Inferior infarction age undetermined. Lateral infarction age undetermined. Deep S wave in lateral leads. Rightward QRS axis. Right ventricular hypertrophy. Probably progression. Abnormal EKG.), coronary artery disease, dementia, GERD, GI bleed (History of C. difficile colitis.), hyperlipidemia, hypertension, myocardial infarction, osteoporosis, peripheral artery disease (Carotid artery atherosclerosis. Moderate 40-59% stenosis of the right ICA versus nonstenotic plaque of left ICA.), renal disease (Urinary retention. BPH/prostatism. Recurrent neurogenic bladder. History of ureteral stenosis.), TIA (History of TIA with transient expressive aphasia. History of TIA with gait disturbance.), valvular heart disease, other Psychiatric history: anxiety, other - Past Surgical History Surgical History: angioplasty/stent, appendectomy, cataract, herniorrhaphy, orthopedic, other (Shoulder surgery. Cervical spine surgery.), sinus surgery ( Tonsillectomy- adenoidectomy), other (Prostate surgery.) - Social History Smoking Status: Former smoker Smokeless Tobacco Status: No Alcohol use: none Drug use: none Medications and Allergies Atorvastatin [Lipitor] 40 mg PO HS 08/28/16 [History] Gabapentin [Neurontin] 300 mg PO TID 08/28/16 [History] Metoprolol XL (24 HR) Succ [Toprol XL] 25 mg PO DAILY 08/28/16 [History] Tamsulosin [Flomax] 0.8 mg PO DAILY 08/28/16 [History] Aspirin 81 mg PO DAILY 10/10/16 [History] Betamethasone Gloria 0.1% Crm [Valisone 0.1%] 1 appl TP BID 10/10/16 [History] Furosemide [Lasix] 20 mg PO DAILY 10/10/16 [History] LORazepam [Ativan] 1 mg PO HS 10/10/16 [History] Nitroglycerin [Nitrostat] 0.4 mg SL AD PRN 10/10/16 [History] Valsartan/Hydrochlorothiazide [Diovan Hct 320-12.5 mg Tab] 1 tab PO DAILY [History] Haloperidol [Haldol] 5 mg PO TID 11/14/16 [History] Allergies ciprofloxacin [From Cipro] Allergy (Verified 11/14/16 08:15) Hives Penicillins [PCN] Allergy (Verified 11/14/16 08:15) Hives Sulfa (Sulfonamide Antibiotics) Allergy (Verified 11/14/16 08:15) Hives Review of Systems ROS unobtainable: due to mental status - Genitourinary difficulty urinating Exam Initial Vital Signs Temp Pulse Resp BP Pulse Ox 97.8 F 53 16 79/50 94 L 11/13/16 22:41 11/13/16 22:41 11/13/16 22:41 11/13/16 22:41 11/13/16 22:41 - General physical appearance Present: moderate pain - Eyes Present: PERRL - ENT Present: normal nares - Neck Present: no masses - Respiratory Present: normal respiratory effort - Abdomen Abdomen: Present: soft Hernia: Present: none - Genitourinary Penis: Present: other (Gross blood from meatus) - Integumentary Present: no rash - Neurologic Present: disoriented, confused Urology Results - Labs 11/14/16 04:52 11/14/16 04:52 Abnormal lab results RBC 3.07 M/mcL (4.19-5.50) L 11/14/16 04:52 Hgb 9.2 g/dL (12.9-16.9) L 11/14/16 04:52 Hct 29.9 % (37.5-50.1) L 11/14/16 04:52 MCHC 30.8 g/dL (31.6-35.5) L 11/14/16 04:52 RDW 14.7 % (11.5-14.5) H 11/14/16 04:52 Plt Count 104 K/mcL (140-400) L 11/14/16 04:52 VBG pH 7.29 pH Units (7.32-7.42) L 11/14/16 04:52 VBG pCO2 67 mmHg (41-51) H 11/14/16 04:52 VBG pO2 44 mmHg (25-40) H 11/14/16 04:52 VBG HCO3 32.2 mEq/L (21-27) H 11/14/16 04:52 Potassium 3.1 mEq/L (3.5-4.5) L 11/14/16 04:52 BUN 33 mg/dL (8-26) H 11/14/16 04:52 Est GFR (Non-Af Amer) 55 (> 60) L 11/14/16 04:52 Glucose 125 mg/dL (70-99) H 11/14/16 04:52 Calculated Osmolality 305 (280-300) H 11/14/16 04:52 Calcium 7.8 mg/dL (8.6-10.8) L 11/14/16 04:52 Ionized Calcium 1.09 mmol/L (1.15-1.35) L 11/14/16 04:52 C-Reactive Protein 135 mg/L (Less than 5) H 11/14/16 04:52 Serum Total Protein 5.5 g/dL (6.0-8.3) L 11/13/16 22:49 Albumin 2.8 g/dL (3.5-5.0) L 11/13/16 22:49 Albumin/Globulin Ratio 1.0 (1.1-2.2) L 11/13/16 22:49 Prealbumin 11.0 mg/dL (18.0-45.0) L 11/14/16 04:52 HDL Cholesterol 25 mg/dL (40-59) L 11/14/16 04:52 Free T3 1.47 pg/mL (1.71-3.71) L 11/14/16 04:52 Ur Specimen Adequacy See below A 11/14/16 13:13 Urine Color Red (Yellow) A 11/14/16 13:13 Urine Clarity Cloudy (Clear) A 11/14/16 13:13 Urine Protein >=300 mg/dL (Neg-Trace) H 11/14/16 13:13 Urine Ketones Trace mg/dL (Negative) H 11/14/16 13:13 Urine Blood Large (Negative) H 11/14/16 13:13 Urine Nitrite Positive (Negative) A 11/14/16 13:13 Urine Bilirubin Moderate (Negative) H 11/14/16 13:13 Ur Leukocyte Esterase Small (Negative) H 11/14/16 13:13 Diabetes panel 11/14/16 11/14/16 Range/Units 04:52 04:52 Sodium 143 (136-145) mEq/L Potassium 3.1 L (3.5-4.5) mEq/L Chloride 108 (98-109) mEq/L Carbon Dioxide 27 (19-29) mEq/L BUN 33 H (8-26) mg/dL Creatinine 1.25 (0.72-1.25) mg/dL Glucose 125 H (70-99) mg/dL Hemoglobin A1c 5.6 ( - 5.6) % Calcium 7.8 L (8.6-10.8) mg/dL Triglycerides 62 (< 150) mg/dL HDL Cholesterol 25 L (40-59) mg/dL Thyroid panel 11/14/16 Range/Units 04:52 TSH 0.418 (0.350-4.840) mcIU/mL Calcium panel 11/14/16 Range/Units 04:52 Calcium 7.8 L (8.6-10.8) mg/dL Pituitary panel 11/14/16 Range/Units 04:52 Sodium 143 (136-145) mEq/L Potassium 3.1 L (3.5-4.5) mEq/L Chloride 108 (98-109) mEq/L Carbon Dioxide 27 (19-29) mEq/L BUN 33 H (8-26) mg/dL Creatinine 1.25 (0.72-1.25) mg/dL Glucose 125 H (70-99) mg/dL Calcium 7.8 L (8.6-10.8) mg/dL TSH 0.418 (0.350-4.840) mcIU/mL Adrenal panel 11/14/16 Range/Units 04:52 Sodium 143 (136-145) mEq/L Potassium 3.1 L (3.5-4.5) mEq/L Chloride 108 (98-109) mEq/L Carbon Dioxide 27 (19-29) mEq/L BUN 33 H (8-26) mg/dL Creatinine 1.25 (0.72-1.25) mg/dL Glucose 125 H (70-99) mg/dL Calcium 7.8 L (8.6-10.8) mg/dL All other labs normal. Procedures:Urology - Suprapubic Catheter Initial Consent obtained: consent not possible/implied Reason for Suprapubic Catheter: retention. unable to palce carter cath. Estimated Amount of Urine (mLs): 900 (gross hematuria. dark) Prophylactic Antibiotics Given: No Skin cleansed in sterile fashion: Yes (betadine) Anesthetic Used: lidocaine 1% Suprapubic Type and Size: bonano Suprapubic Technique Procedure: aspiration with large bore needle and placement over the needle. Amount of Urine Returned: 900 total Urine Appearance: Hematuria (gross. dark.) Complications Suprapubic Catheterization: none Patient tolerated procedure: well Consult Discharge Plan - Plan Referrals: Jamie Santos MD [Primary Care Provider] -
--- NOTE | 2016-11-14 15:15 | Electrocardiograph Report ---
[place] [address] Test Date: 2016-11-13 Pat Name: Abelino Rogers Department: 103 Room: 2N05 Gender: M Sander And Buffer: : 1935 Requested By: Brian Damico Order Number: [id number] Reading MD: Stephanie Starks Measurements Intervals [place] Rate: 51 P: 77 FL: 204 QRS: 13 QRSD: 111 T: 50 QT: 467 QTc: 443 Interpretive Statements SINUS BRADYCARDIA WITH OCCASIONAL SUPRAVENTRICULAR PREMATURE COMPLEXES ARTIFACT IN LEAD V1 Electronically Signed On 11-14-2016 15:13:57 EST by Stephanie Starks
[2016-11-14] MEDS: *HR* OxyCODONE Immed Rel 5 MG TABLET PO PRN (18:05)
--- NOTE | 2016-11-14 19:53 | Venous Imaging Report ---
LE Venous Duplex Patient Name:Abelino Rogers Order Number:[id number] Procedure Date:11/14/2016 Date:1935ge:81 yrs Gender:Male Location:[facility] Room #: 2NO5 Online Advertising Director:Mila Kareenraudel Referring MD:Renzo Mcclendon MD director loan:Jamie Santos MD Reading MD:Sander Diggs MD , FACS Primary Indications:pain/swelling LE Secondary Indications: Risk Factors Yes/No Anticoagulants Unknown Impressions: Right lower extremity: normal superficial and deep exam. Left lower extremity: normal deep exam. 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 Recommendations: After imaging the patient returned to their room. Gave vascular preliminary results to Tiki on 2NO. Test completed on 11/14/2016 at 4:07:00 pm. Findings Venous Duplex Results: Right: Venous imaging of the lower extremity reveals full patency and normal vessel compressibility of the right distal iliac, right common femoral, right superficial femoral, right popliteal, right posterior tibial, right peroneal, right great saphenous and right lesser saphenous. Doppler signals in the evaluated veins were normal. Left: Venous imaging of the lower extremity reveals full patency and normal vessel compressibility of the left distal iliac, left common femoral, left superficial femoral, left popliteal, left posterior tibial, left peroneal and left great saphenous. Doppler signals in the evaluated veins were normal. The left lesser saphenous demonstrates a partially compressible vein. Flow was phasic and it did augment. Prior Study: No prior study available for comparison. Lower Extremity Venous Duplex Side Vein Compress Spontaneous Flow Augment Diameter (cm) Depth (cm) Right Distal Iliac Normal yes Phasic yes Right Common Femoral Normal yes Phasic yes Right Superficial Femoral Normal yes Phasic yes Right Popliteal Normal yes Phasic yes Right Posterior Tibial Normal yes Phasic yes Right Peroneal Normal yes Phasic yes Right Great Saphenous Normal yes Phasic yes Right Lesser Saphenous Normal yes Phasic yes Left Distal Iliac Normal yes Phasic yes Left Common Femoral Normal yes Phasic yes Left Superficial Femoral Normal yes Phasic yes Left Popliteal Normal yes Phasic yes Left Posterior Tibial Normal yes Phasic yes Left Peroneal Normal yes Phasic yes Left Great Saphenous Normal yes Phasic yes Left Lesser Saphenous Partial yes Phasic yes Updated by Sander Diggs MD, FACS on 11/14/2016 7:48:35 PM Sander Diggs MD electronically signed on 11/14/2016 7:49:08 PM with status of Final
[2016-11-14] MEDS: Vancomycin 1,500 MG in D5% in Water 250 ML IVPB SCH (20:19)
--- NOTE | 2016-11-14 20:23 | Carotid Imaging Report ---
Carotid Duplex Patient Name:Abelino Rogers Order Number:[id number] Procedure Date:11/14/2016 Date:1935ge:81 yrs Gender:Male Lt BP:132 / 78 mmHg Rt.BP:138 / 80 mmHgHeart Rate: Location:[facility] Room #: 2NO Photogrammetric Engineer:Mila Farrell Referring MD:Renzo Mcclendon MD funnel coater:Jamie Santos MD Reading MD:Sander Diggs MD , [facility] Primary Indications:syncope Impressions: Findings: Right distal ICA has a severe, 60-79% stenosis. Findings: Left carotid system has nonstenotic plaque. Recommendations: After imaging the patient returned to their room. Findings Carotid Duplex: Right: The right proximal common carotid artery has a PSV of 102 cm/s and a EDV of 22 cm/s. The right mid common carotid artery has a PSV of 93 cm/s and a EDV of 23 cm/s. The right distal common carotid artery has a PSV of 79 cm/s and a EDV of 17 cm/s. There is nonstenotic plaque in the right bifurcation with a PSV of 71 cm/s and a EDV of 23 cm/s. There is nonstenotic plaque in the right proximal internal carotid artery with a PSV of 105 cm/s and a EDV of 25 cm/s. The right mid internal carotid artery has a PSV of 102 cm/s and a EDV of 22 cm/s. There is 60-79% stenosis in the right distal internal carotid artery with a PSV of 176 cm/s and a EDV of 63 cm/s. There is nonstenotic plaque in the right eca with a PSV of 149 cm/s and a EDV of 25 cm/s. The right vertebral artery has a PSV of 146 cm/s and a EDV of 42 cm/s. Left: The left proximal common carotid artery has a PSV of 86 cm/s and a EDV of 24 cm/s. The left mid common carotid artery has a PSV of 95 cm/s and a EDV of 29 cm/s. The left distal common carotid artery has a PSV of 88 cm/s and a EDV of 20 cm/s. There is nonstenotic plaque in the left bifurcation with a PSV of 59 cm/s and a EDV of 16 cm/s. There is nonstenotic plaque in the left proximal internal carotid artery with a PSV of 79 cm/s and a EDV of 32 cm/s. The left mid internal carotid artery has a PSV of 74 cm/s and a EDV of 30 cm/s. The left distal internal carotid artery has a PSV of 79 cm/s and a EDV of 30 cm/s. There is nonstenotic plaque in the left eca with a PSV of 146 cm/s and a EDV of 21 cm/s. The left vertebral artery has a PSV of 25 cm/s and a EDV of 7 cm/s. Prior Study: No prior study available for comparison. Carotid Results Right PSV EDV Assessment Proximal CCA 102 22 Normal Mid CCA 93 23 Normal Distal CCA 79 17 Normal Bifurcation 71 23 Non Stenotic Plaque Proximal ICA 105 25 Non Stenotic Plaque Mid ICA 102 22 Normal Distal ICA 176 63 60-79% stenosis ECA 149 25 Non Stenotic Plaque Vertebral Artery 146 42 Antegrade Flow Left PSV EDV Assessment Proximal CCA 86 24 Normal Mid CCA 95 29 Normal Distal CCA 88 20 Normal Bifurcation 59 16 Non Stenotic Plaque Proximal ICA 79 32 Non Stenotic Plaque Mid ICA 74 30 Normal Distal ICA 79 30 Normal ECA 146 21 Non Stenotic Plaque Vertebral Artery 25 7 Antegrade Flow Ratio's Right ICA/CCA Ratio: 1.89 ICA/CCA Values: 176/93 Left ICA/CCA Ratio: 0.83 ICA/CCA Values: 79/95 Updated by Sander Diggs MD, FACS on 11/14/2016 8:15:51 PM Sander Diggs MD electronically signed on 11/14/2016 8:16:33 PM with status of Final
[2016-11-14] MEDS: *HR* LORazepam 1 MG TABLET PO SCH (20:39)
[2016-11-15] MEDS: Aztreonam 2,000 MG in D5% in Water (Mini-Bag+) 100 ML IVPB SCH ×4 (01:00→23:41)
[2016-11-15] MEDS: Azithromycin 500 MG in D5% in Water 250 ML IVPB SCH (03:45)
[2016-11-15] MEDS: *HR* OxyCODONE Immed Rel 5 MG TABLET PO PRN ×2 (03:53→16:37)
[2016-11-15] MEDS: Ipratropium/Albuterol Neb 3 ML IH SCH ×3 (04:37→15:40)
[2016-11-15 05:01] LABS: Basophils % 0.1 %; Eosinophils # 0.5 K/mcL (0.0-0.6); Eosinophils % 7.2 %; Hematocrit 31.8 % (37.5-50.1); Hemoglobin 10.1 g/dL (12.9-16.9); Immature Granulocytes % 0.3 % (0-4); Lymphocytes # 0.9 K/mcL (0.6-4.6); Lymphocytes % 12.9 %; Mean Corpuscular HGB Conc 31.8 g/dL (31.6-35.5); Mean Corpuscular Volume 94.4 fL (83.0-100.0); Mean Platelet Volume 10.5 fL (9.4-12.4); Monocytes # 0.3 K/mcL (0.0-1.3); Monocytes % 4.2 %; Neutrophils # 5.3 K/mcL (1.6-8.9); Platelet Count 130 K/mcL (140-400); Red Blood Count 3.37 M/mcL (4.19-5.50); Red Cell Distribution Width 14.3 % (11.5-14.5); Segmented Neutrophils % 75.3 %
[2016-11-15 05:11] LABS: BUN/Creatinine Ratio 28 (6-26); Blood Urea Nitrogen 23 mg/dL (8-26); Calcium 8.2 mg/dL (8.6-10.8); Carbon Dioxide 27 mEq/L (19-29); Chloride 107 mEq/L (98-109); Glucose 109 mg/dL (70-99); Osmolality,Calculated 296 (280-300); Potassium 3.7 mEq/L (3.5-4.5); Sodium 141 mEq/L (136-145); eGFR For African Americans > 60 (> 60); eGFR For Non-African Americans > 60 (> 60)
[2016-11-15] MEDS: *HR* Heparin 5,000 UNIT/ML VIAL SQ SCH (06:05)
--- NOTE | 2016-11-15 07:41 | ECHO - Doppler Report ---
Echocardiogram Name: Abelino Rogers Date of Study: 11/14/2016 Date: 1935 Ht: 73.0 in Medical Record#: [id number] Age: 81 Wt: 191.0 lb Gender: Male BSA: 2.11 Order #: [id number] Location: [facility] Room #: 2NO5 Reading Physician: Kian Javier DO, FACElvia, STEPHENIE PABLO Software Quality Manager: Mila Farrell Ordering Physician: Renzo Mcclendon MD Primary Physician: Jamie Santos MD Indications: Congestive heart failure, Hypotension Impressions: LVEF 65-70%. Normal LV chamber size, wall thickness and function. Atypical septal motion consistent with paced rhythm. Mild left ventricular diastolic dysfunction. Normal right ventricular structure and function. Aortic valve not well visualized. Grossly, the aortic valve appears calcified. Moderate aortic stenosis. Mean gradient 25 mmHg. No evidence of pulmonary hypertension. A device lead was visualized in the right atrium and right ventricle. Left Ventricular Wall Motion: Rest Echo Findings All wall segments showed normal motion. Findings: Study Quality * Technically adequate exam. ECG Findings * Normal sinus rhythm. Left Ventricle * LVEF 65-70%. * Normal LV chamber size, wall thickness and function. * Atypical septal motion consistent with paced rhythm. * Mild left ventricular diastolic dysfunction. Right Ventricle * Normal right ventricular structure and function. Left Atrium * Mild to moderately dilated left atrium. Right Atrium * Normal right atrial size. Interatrial Septum * Interatrial septum not well evaluated. Aortic Valve * Aortic valve not well visualized. * Grossly, the aortic valve appears calcified. * Trace aortic regurgitation. * Moderate aortic stenosis. Mean gradient 25 mmHg. Mitral Valve * Normal mitral valve structure and function. * Trace mitral regurgitation. * No mitral stenosis. Tricuspid Valve * Normal tricuspid valve structure and function. * Trace tricuspid regurgitation. * No evidence of pulmonary hypertension. Pulmonic Valve * Pulmonic valve not well visualized. Aorta * Normally sized aortic root. Pericardium * The pericardium appears normal. IVC * The IVC is not dilated. Device lead * A device lead was visualized in the right atrium and right ventricle. Pulmonary Artery * Pulmonary artery not well visualized. History Diabetes Hypercholesteremia Family History of CAD Congestive Heart Failure Pacer/ICD Implant 11/06/2014 a Previous Echo was performed. Measurements: BP: 138/ 80 2D Normal Values RVIDd: 3.00 cm <2.7 cm IVSd: .80 cm 0.6 - 1.0 cm LVIDd: 4.40 cm 3.7 - 5.6 cm LVPWd: 1.00 cm 0.6 - 1.1 cm LVIDs: 2.90 cm 1.5 - 3.6 cm AO: 3.10 cm < 4.0 cm LA: 3.50 cm 2.0 - 4.0cm %FS: 34.10 cm >25 % LVOT Diam: 2.05 cm LA volume: 66 Mitral Valve Peak E:.82 m/sec Peak A:.97 m/sec E/A Ratio:0.8 Peak E' Lat Prabhu:11.3 cm/s Peak E' Med Prabhu:5.85 cm/s E/E' Lat Ratio:7.2 E/E' Med Ratio:14 LVOT Peak Prabhu:1.08 m/sec Mean Prabhu:.64 m/sec Peak Grad:5.00 mmHg Mean Grad:2.00 mmHg Aortic Valve Peak Prabhu:3.58 m/sec Mean Prabhu:2.33 m/sec Peak Grad:51.00 mmHg Mean Grad:25.00 mmHg Valve Area:1.04 cm2 Tricuspid Valve TV Regurg Peak Grad: 27.00mmHg TV Regurg Peak Prabhu: 2.61m/sec Updated by Kian Javier DO, FACElvia, STEPHENIE PABLO on 11/15/2016 7:35:14 AM electronically signed on 11/15/2016 7:36:00 AM with status of Final Wall Motion Merino: 1=Normal, 2=Hypokinesis, 3=Akinesis, 4=Dyskinesis, 5=Aneurysmal, 6=Hyperkinetic, X=Not Visualized (Blank)=Missing
--- NOTE | 2016-11-15 07:47 | Urology Progress Note ---
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 ct scan with no evidence of large clot in the bladder. Ok to observe from urology standpoint - no plan to place larger cath during hospitalization. will attempt to upsize SPT in the urology office within 1 week of discharge. will continue to follow while in hospital Progress Note Narrative: sleeping. spt draining OK overnight. Objective Initial Vital Signs Temp Pulse Resp BP Pulse Ox 97.8 F 53 16 79/50 94 L 11/13/16 22:41 11/13/16 22:41 11/13/16 22:41 11/13/16 22:41 11/13/16 22:41 - General physical appearance Present: no distress (asleep.) - Additional Exam suprapubic cath in place with nearly clear in the tube. - Labs 11/15/16 04:13 11/15/16 04:13 Diabetes panel 11/15/16 Range/Units 04:13 Sodium 141 (136-145) mEq/L Potassium 3.7 (3.5-4.5) mEq/L Chloride 107 (98-109) mEq/L Carbon Dioxide 27 (19-29) mEq/L BUN 23 D (8-26) mg/dL Creatinine 0.83 (0.72-1.25) mg/dL Glucose 109 H (70-99) mg/dL Calcium 8.2 L (8.6-10.8) mg/dL Calcium panel 11/15/16 Range/Units 04:13 Calcium 8.2 L (8.6-10.8) mg/dL Pituitary panel 11/15/16 Range/Units 04:13 Sodium 141 (136-145) mEq/L Potassium 3.7 (3.5-4.5) mEq/L Chloride 107 (98-109) mEq/L Carbon Dioxide 27 (19-29) mEq/L BUN 23 D (8-26) mg/dL Creatinine 0.83 (0.72-1.25) mg/dL Glucose 109 H (70-99) mg/dL Calcium 8.2 L (8.6-10.8) mg/dL Adrenal panel 11/15/16 Range/Units 04:13 Sodium 141 (136-145) mEq/L Potassium 3.7 (3.5-4.5) mEq/L Chloride 107 (98-109) mEq/L Carbon Dioxide 27 (19-29) mEq/L BUN 23 D (8-26) mg/dL Creatinine 0.83 (0.72-1.25) mg/dL Glucose 109 H (70-99) mg/dL Calcium 8.2 L (8.6-10.8) mg/dL Consult Discharge Plan - Plan Referrals: Jamie Santos MD [Primary Care Provider] -
[2016-11-15] MEDS: Gabapentin 300 MG CAPSULE PO SCH ×3 (08:53→21:34)
[2016-11-15] MEDS: Aspirin 81 MG TAB.CHEW PO SCH (08:53)
[2016-11-15] MEDS ORDERED: 0.9 % Sodium Chloride 1,000 ML IVC SCH (11:15)
[2016-11-15] MEDS: *HR* Morphine 2 MG/ML SYRINGE IVP PRN (11:15)
[2016-11-15] MEDS ORDERED: 0.9 % Sodium Chloride 500 ML IVC ONE ×2 (11:23→12:28)
--- NOTE | 2016-11-15 12:03 | Internal Med Progress Note ---
Date of Encounter: 11/15/16 Time of Encounter: 11:00 - Assessment and plan (1) HCAP (healthcare-associated pneumonia) Current Visit: Yes Status: Acute Assessment and plan: Patient has pneumonia, He is from snf, treat patient health care associated pneumonia. Continue antibiotics. CT chest done, suggest RLL pneumonia. (2) Atrial fibrillation with rapid ventricular response Current Visit: Yes Status: Acute Assessment and plan: Patient has developed A. fib with RVR. Possibly due to underlying lung disease. His TSH is within normal limit, magnesium level is normal. Cardizem drip has been started. Cardiac consult. (3) Cellulitis and abscess of foot Current Visit: Yes Status: Acute Assessment and plan: Patient is on antibiotics. We will continue wound care and consult podiatry. (4) Hypotension Current Visit: Yes Status: Acute Assessment and plan: Etiology is undetermined. Possibly due to hypovolemic status. Improved after IV fluid in ER. Off dopamine drip now. Will continue closely monitor BP level. Qualifiers: Hypotension type: other hypotension type Qualified Code(s): I95.89 - Other hypotension (5) Urinary (tract) obstruction Current Visit: Yes Status: Acute Assessment and plan: Patient has a history of BPH and Following urology as outpatient. Suprapubic catheter was placed by urology. (6) Dementia in Alzheimer's disease Current Visit: Yes Status: Chronic Assessment and plan: We will continue home medications (7) DVT prophylaxis Current Visit: Yes Status: Acute Assessment and plan: EPCD and heparin SC - Subjective Interval history: Patient is a 81-year-old male admitted for hypotension and pneumonia. His past medical history is significant for dementia, CAD, hyperlipidemia, hypertension, PAD, A. fib, TIA, BPH. Patient was seen and examined, patient denies cough or shortness of breath. However, in about 11 AM this morning patient developed A. fib with rapid ventricular response. With a heart rate 150. Cardizem drip was started. Normal saline bolus of 500 was also given because of low side the blood pressure. We will closely monitor heart rate and blood pressure. Cardiac consult called. - Constitutional Vitals: Temp Pulse Resp BP Pulse Ox 98 F 152 18 110/54 94 L 11/15/16 11:34 11/15/16 11:34 11/15/16 11:34 11/15/16 11:34 11/15/16 11:34 General appearance: Present: cachectic, cooperative, A&O X 1, obese, severe distress. Absent: answers questions appropriately - Head Head exam: Present: atraumatic, normocephalic - Eye Eye exam: Present: PERRL, conjuntiva pink, sclera anicteric Pupils: Present: PERRL - Neck Neck exam general surgery: Present: supple, trachea midline. Absent: lymphadenopathy - Respiratory Respiratory exam: Present: CTAB. Absent: accessory muscle use, rales, rhonchi, wheezes - Cardiovascular Cardiovascular exam: Present: irregular rhythm, +S1, +S2, tachycardia. Absent: diastolic murmur, gallop, rubs, systolic murmur - GI/Abdominal GI/Abdominal exam: Present: normal bowel sounds, soft, no peritoneal signs. Absent: distended, tenderness - Extremities Exam Extremities exam: Present: warm, radial pulses palpable and symetrical. Absent : calf tenderness, cyanotic, pedal edema - Neurological Exam Neurological exam: Present: CN II-XII intact, oriented X3, no focal deficits. Absent: pronater drift, facial droop, speech deficit - Skin Skin exam: Present: dry, intact Internal Medicine: Result - Labs CBC & Chem 7: 11/15/16 04:13 11/15/16 04:13 Labs: Short CBC 11/15/16 Range/Units 04:13 WBC 7.1 (4.3-11.1) K/mcL Hgb 10.1 L (12.9-16.9) g/dL Hct 31.8 L (37.5-50.1) % Plt Count 130 L (140-400) K/mcL Neutrophils # 5.3 (1.6-8.9) K/mcL BMP 11/15/16 04:13 Sodium 141 Potassium 3.7 Chloride 107 Carbon Dioxide 27 BUN 23 D Creatinine 0.83 Glucose 109 H Calcium 8.2 L Urine 11/14/16 Range/Units 13:13 Urine Color Red A (Yellow) Urine Clarity Cloudy A (Clear) Urine pH 5.5 (5.0-8.0) pH Units Ur Specific [place] 1.019 (1.010-1.025) Urine Protein >=300 H (Neg-Trace) mg/dL Urine Glucose (UA) Normal (Normal) mg/dL - Impressions Impressions Chest CT 11/14/16 08:00 IMPRESSION: Elevated right hemidiaphragm. Bibasilar atelectasis. Trace bilateral pleural effusions are suspected. Underlying pulmonary emphysema D/ / Sander Perkins MD / Sander Perkins MD Interpreting Provider: Sander Perkins MD Foot CT 11/14/16 08:00 IMPRESSION: 1. Significant decreased bone mineral density. 2. Subacute-remote nonhealed anatomically aligned bimalleolar fracture. 3. Asymmetric lateral tibiotalar joint space which may relate to lateral aspect cartilage attenuation or medial widening due to instability. 4. The mid and forefoot demonstrate normal alignment with no acute fracture. No evidence of osteomyelitis. 5. Nonspecific diffuse ankle and foot edematous changes with no evidence of an abscess. 6. Chronic tendinosis. D/ / 11/14/2016 16:06:00 Gonzales Galeas MD / shahrzad Interpreting Provider: Gonzales Galeas MD Foot CT 11/14/16 08:00 IMPRESSION: 1. Re- demonstration of chronic medial and lateral malleoli fractures with only minimal signs of healing. The majority of both the medial and lateral malleoli fracture lucencies persist. 2. Severe osteopenia. Findings limit evaluation for nondisplaced fractures and subtle osseous abnormalities. Within limits of the exam there is no radiographic evidence for osteomyelitis. No additional fractures identified. 3. Extensive soft tissue swelling along the dorsal foot. No organized fluid collection is identified to suggest abscess. 4. Question small ulceration along the dorsal soft tissues at the level of the heel. 5. Nonspecific tibiotalar and subtalar joint effusions. D/ / Virgil Luo MD / Virgil Luo MD Interpreting Provider: Virgil Luo MD Head CT 11/14/16 08:00 IMPRESSION: No acute intracranial abnormality. D/ / Gopal Booker MD / Gopal Booker MD Interpreting Provider: Gopal Booker MD Abdomen/Pelvis CT 11/14/16 13:23 IMPRESSION: Cholelithiasis. Bibasilar infiltrates greater on the right likely representing atelectasis. Right lower lobe pneumonia however is not excluded. Tiny bilateral pleural effusions are additionally noted. Diverticulosis without evidence of acute diverticulitis. Benign complex Bosniak type 2 cyst within the lower pole of the right kidney measuring 8.3 cm. Suprapubic catheter. Prostate enlargement. D/ / 11/14/2016 15:51:03 Hiren Woods MD / shahrzad Interpreting Provider: Hiren Woods MD Consult Discharge Plan - Plan Referrals: Jamie Santos MD [Primary Care Provider] -
--- NOTE | 2016-11-15 12:27 | Cardiology Consult Note ---
Date of Encounter: 11/15/16 Time of Encounter: 12:15 Assessment and Plan (1) PAF (paroxysmal atrial fibrillation) Current Visit: Yes Status: Acute Hx of PAF, initially diagnosed in 2014. Per review of outpatient documentation, was on Coumadin, however stopped due to significant hematuria. Afib with RVR, ~ 11:00 AM today. Admitted to the hospital with urinary retention resulting in insertion of supra-pubic cath. Gross hematuria noted in catheter tubing. Urology has recommend SQ heparin to be d/c'ed. H/H stable this AM--HgB 10.1. TTE: EF 65-70%, mild LVDD, moderate MG=25mmHg. Recommend fluid bolus and continue to uptitrate Cardizem gtt as BP will tolerate ; if he continues to be hypotensive, may need to add Amiodarone gtt. Unfortunately, at this point, he is not a candidate for anticoagulation. Will continue to follow. (2) Gross hematuria Current Visit: Yes Status: Acute Urology following. (3) Acute kidney injury superimposed on CKD Current Visit: Yes Status: Acute Resolved, SCR normal. Discussion w patient/family: The assessment and plan as outlined above was discussed with the patient and/or family members who expressed understanding and agreement. All questions were answered. Thank you for involving us in the care of your patient. Please call with any questions. The patient will be discussed and reviewed with Dr. Gil Starks; changes to be made accordingly. History of Present Illness Consult date: 11/15/16 Requesting physician: Marisela Albrecht Consult reason: atrial fibrillation with RVR Chief complaint: Afib History of present illness: Mr. Rogers is a 81 year old male with PMH significant for PAF, CAD s/p PCI (- 2011), TIA, HTN, and dementia who initially presented to [facility] with abdominal pain; he was found to have significant urinary retention resulting in insertion of suprapubic cath. Cardiology consulted today d/t atrial fibrillation with RVR. Recently placed in [facility] due worsening dementia and frequent falls at home. Past Med Surg Social Fam HX - Past Medical History Attestation: Yes The following information was validated with the patient. Source: old records reviewed Medical history: arthritis, atrial fibrillation, coronary artery disease, dementia, GERD, hyperlipidemia, hypertension, myocardial infarction, osteoporosis, peripheral artery disease (Carotid artery atherosclerosis. Moderate 40-59% stenosis of the right ICA versus nonstenotic plaque of left ICA. ), renal disease (Urinary retention. BPH/prostatism. Recurrent neurogenic bladder. History of ureteral stenosis.), TIA (History of TIA with transient expressive aphasia. History of TIA with gait disturbance.), valvular heart disease Psychiatric history: anxiety, other (dementia) - Past Surgical History Surgical History: angioplasty/stent, appendectomy, cataract, herniorrhaphy, orthopedic, other (Shoulder surgery. Cervical spine surgery.), sinus surgery ( Tonsillectomy- adenoidectomy), other (Prostate surgery.) - Social History Smoking Status: Former smoker Smokeless Tobacco Status: No Alcohol use: none Drug use: none Medications and Allergies Atorvastatin [Lipitor] 40 mg PO HS 08/28/16 [History] Gabapentin [Neurontin] 300 mg PO TID 08/28/16 [History] Metoprolol XL (24 HR) Succ [Toprol XL] 25 mg PO DAILY 08/28/16 [History] Tamsulosin [Flomax] 0.8 mg PO DAILY 08/28/16 [History] Aspirin 81 mg PO DAILY 10/10/16 [History] Betamethasone Gloria 0.1% Crm [Valisone 0.1%] 1 appl TP BID 10/10/16 [History] Furosemide [Lasix] 20 mg PO DAILY 10/10/16 [History] LORazepam [Ativan] 1 mg PO HS 10/10/16 [History] Nitroglycerin [Nitrostat] 0.4 mg SL AD PRN 10/10/16 [History] Valsartan/Hydrochlorothiazide [Diovan Hct 320-12.5 mg Tab] 1 tab PO DAILY [History] Haloperidol [Haldol] 5 mg PO TID 11/14/16 [History] Allergies ciprofloxacin [From Cipro] Allergy (Verified 11/14/16 08:15) Hives Penicillins [PCN] Allergy (Verified 11/14/16 08:15) Hives Sulfa (Sulfonamide Antibiotics) Allergy (Verified 11/14/16 08:15) Hives ROS unobtainable: due to mental status All Systems Review: A 10-system review of systems was performed and is negative for pertinent findings except as documented above in the HPI. Physical Examination Vital Signs, Last 4 Hours Temp Pulse Resp BP Pulse Ox 11/15/16 11:34 98 F 152 18 110/54 94 L 11/15/16 10:32 16 97 General: Conversant, No Apparent Distress, Other (confused) HEENT: Atraumatic, Normocephaly Cardiac: Other (irregularly irregular) Lungs: Normal Breath Sounds Neuro: Alert and responsive (to self only) Abdomen: Soft Extremities: Other (bilateral heel wounds (open), +1-2 edema to mid jo) Results 11/15/16 04:13 11/15/16 04:13 Lab Results 11/15/16 11/15/16 04:13 04:13 WBC 7.1 Hgb 10.1 L Hct 31.8 L Plt Count 130 L Sodium 141 Potassium 3.7 Chloride 107 Carbon Dioxide 27 BUN 23 D Creatinine 0.83 Glucose 109 H Calcium 8.2 L - Imaging and Cardiology Echo: report reviewed Other Results: 12 hour tele: avg HR88. RVR ~11AM - EKG Interpretation EKG results cardiology: personally reviewed Consult Discharge Plan - Plan Referrals: Jamie Santos MD [Primary Care Provider] -
[2016-11-15] MEDS ORDERED: Amiodarone Premix 360 MG/200 ML BAG IVC ONE (13:13)
[2016-11-15] MEDS ORDERED: Amiodarone Premix 150 MG/100 ML BAG IVPB ONE (13:13)
[2016-11-15 14:09] LABS: Enterococcus by PCR Not Detected (Not Detect); mecA Methicillin-Resist Gene Not Detected (Not Detect)
[2016-11-15 14:10] LABS: Acinetobacter baumannii by PCR Not Detected (Not Detect); Candida albicans by PCR Not Detected (Not Detect); Candida glabrata by PCR Not Detected (Not Detect); Candida krusei by PCR Not Detected (Not Detect); Candida parapsilosis by PCR Not Detected (Not Detect); Candida tropicalis by PCR Not Detected (Not Detect); Escherichia coli by PCR Not Detected (Not Detect); Klebsiella oxytoca by PCR Not Detected (Not Detect); Klebsiella pneumoniae by PCR Not Detected (Not Detect); Pseudomonas aeruginosa by PCR Not Detected (Not Detect); Serratia marcescens by PCR Not Detected (Not Detect); Staphylococcus aureus by PCR Not Detected (Not Detect); Streptococcus agalactiae(B)PCR Not Detected (Not Detect); Streptococcus by PCR Not Detected (Not Detect); Streptococcus pneumoniae PCR Not Detected (Not Detect); Streptococcus pyogenes (A) PCR Not Detected (Not Detect)
--- NOTE | 2016-11-15 14:20 | Event Note ---
Date of Encounter: 11/15/16 Time of Encounter: 14:00 - Cardiology Event Note s/p 1L fluid bolus. Hypotensive with SBP 70's. Cardizem gtt placed on hold. Amiodarone bolus given, now in gtt at 1 mg/min. HR 110's-120's. Appears stable, denies dizziness, dyspnea, palpitations or chest discomfort. Increase maintenance fluids to 150 mg/hr. Recheck CBC. Family at beside. Will discuss and review with Dr. Gil Starks.
--- NOTE | 2016-11-15 14:52 | Electrocardiograph Report ---
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
[2016-11-15 14:55] LABS: Eosinophils # 0.4 K/mcL (0.0-0.6); Eosinophils % 5.7 %; Hematocrit 31.1 % (37.5-50.1); Hemoglobin 9.8 g/dL (12.9-16.9); Immature Granulocytes % 0.5 % (0-4); Lymphocytes # 0.9 K/mcL (0.6-4.6); Lymphocytes % 13.5 %; Mean Corpuscular HGB Conc 31.5 g/dL (31.6-35.5); Mean Corpuscular Hemoglobin 29.4 pg (28.0-33.3); Mean Corpuscular Volume 93.4 fL (83.0-100.0); Mean Platelet Volume 9.9 fL (9.4-12.4); Monocytes # 0.3 K/mcL (0.0-1.3); Monocytes % 5.2 %; Neutrophils # 4.8 K/mcL (1.6-8.9); Platelet Count 124 K/mcL (140-400); Red Blood Count 3.33 M/mcL (4.19-5.50); Red Cell Distribution Width 14.3 % (11.5-14.5); Segmented Neutrophils % 75.1 %
[2016-11-15] MEDS: 0.9 % Sodium Chloride 1,000 ML IVC SCH ×2 (16:40→22:18)
--- NOTE | 2016-11-15 16:41 | Podiatry Consult Note ---
Date of Encounter: 11/15/16 Time of Encounter: 12:30 Assessment and Plan (1) Pressure ulcer of left heel Current visit: Yes Status: Acute Debridement complete Assessment at bedside CT scan negative for osteomyelitis or abscess formation No concern of infection of ulcer at this time Please continue medical management Heels to be floated off of bed at all times Daily dressing change with adaptic, 4x4 and kerlex Change PRN if soiled Call with any changes or concerns Qualifiers: Pressure ulcer stage: stage 2 Qualified Code(s): L89.622 - Pressure ulcer of left heel, stage 2 (2) Pressure ulcer of right heel Current visit: Yes Status: Acute Debridement complete Assessment at bedside CT scan negative for osteomyelitis or abscess formation No concern of infection of ulcer at this time Please continue medical management Heels to be floated off of bed at all times Daily dressing change with adaptic, 4x4 and kerlex Change PRN if soiled Call with any changes or concerns Qualifiers: Pressure ulcer stage: stage 2 Qualified Code(s): L89.612 - Pressure ulcer of right heel, stage 2 (3) Complete immobility due to severe physical disability or frailty Current visit: Yes Status: Chronic History of Present Illness HPI: Mr. Rogers is a 81 year old male who presents to the ED with complaints of hypotension. history significant for Alzheimer's type dementia, hypertension, dyslipidemia, peripheral neuropathy, BPH/prostatism/neurogenic bladder, H/O urethral stricture, H/O E coli MDR UTIs, CKD III, anxiety disorder, DDD of spine /severe cervical spinal stenosis, osteoarthritis, osteopenia, CAD,CVA's paroxysmal atrial fibrillation. Podiatry consulted regarding wounds to bilateral heels. Patient unable to report any history of wound occurrence due to dementia. On arrival cardiology at bedside, HR 150 afib RVR BP 84/60. Patient in no distress at this time and denies any pain. Nurses also at bedside. Patient denies any pain to feet at this time but does state he has severe neuropathy. Patient denies any chills at this time. Patient denies calf pain, SOB or chest pain. Past Med Surg Social Fam HX - Past Medical History Medical history: arthritis, atrial fibrillation, coronary artery disease, dementia, GERD, hyperlipidemia, hypertension, myocardial infarction, osteoporosis, peripheral artery disease (Carotid artery atherosclerosis. Moderate 40-59% stenosis of the right ICA versus nonstenotic plaque of left ICA. ), renal disease (Urinary retention. BPH/prostatism. Recurrent neurogenic bladder. History of ureteral stenosis.), TIA (History of TIA with transient expressive aphasia. History of TIA with gait disturbance.), valvular heart disease Psychiatric history: anxiety, other (dementia) - Past Surgical History Surgical History: angioplasty/stent, appendectomy, cataract, herniorrhaphy, orthopedic, other (Shoulder surgery. Cervical spine surgery.), sinus surgery ( Tonsillectomy- adenoidectomy), other (Prostate surgery.) - Social History Smoking Status: Former smoker Smokeless Tobacco Status: No Alcohol use: none Drug use: none Medications and Allergies Atorvastatin [Lipitor] 40 mg PO HS 08/28/16 [History] Gabapentin [Neurontin] 300 mg PO TID 08/28/16 [History] Metoprolol XL (24 HR) Succ [Toprol XL] 25 mg PO DAILY 08/28/16 [History] Tamsulosin [Flomax] 0.8 mg PO DAILY 08/28/16 [History] Aspirin 81 mg PO DAILY 10/10/16 [History] Betamethasone Gloria 0.1% Crm [Valisone 0.1%] 1 appl TP BID 10/10/16 [History] Furosemide [Lasix] 20 mg PO DAILY 10/10/16 [History] LORazepam [Ativan] 1 mg PO HS 10/10/16 [History] Nitroglycerin [Nitrostat] 0.4 mg SL AD PRN 10/10/16 [History] Valsartan/Hydrochlorothiazide [Diovan Hct 320-12.5 mg Tab] 1 tab PO DAILY [History] Haloperidol [Haldol] 5 mg PO TID 11/14/16 [History] Allergies ciprofloxacin [From Cipro] Allergy (Verified 11/14/16 08:15) Hives Penicillins [PCN] Allergy (Verified 11/14/16 08:15) Hives Sulfa (Sulfonamide Antibiotics) Allergy (Verified 11/14/16 08:15) Hives All Systems Reviewed: A 10-system review of systems was performed and is negative for pertinent findings except as documented above in the HPI. Physical Exam - Constitutional Vitals: Temp Pulse Resp BP Pulse Ox 98.3 F 119 16 85/55 99 11/15/16 15:43 11/15/16 15:43 11/15/16 15:43 11/15/16 15:43 11/15/16 15:43 Exam: General Examination: CONSTITUTIONAL: Alert, not oriented, in no distress at this time EXTREMITIES: CFT 3 seconds all toes. Edema +2 and pedal pulses faintly palpable. Mild erythema noted to mid tibial region SKIN: Skin with decreased turgor, decreased subcutaneous tissue, skin thin and shiny with trophic changes associated with comorbidities as described in history.. NEUROLOGIC: Loss of sensation to light touch Pressure wounds noted to bilateral heels Wound debridement of all loose skin conducted at bedside to obtain true wound measurements . Left heel wound superficial Stage [id number] [id number] Healthy, viable tissue No areas of necrosis noted No drainage, slight bleeding with manipulation No fluctuance No odor No sinus tracts, undermining or tunneling Minimal erythema and edema noted Right heel wound Superficial Stage II [id number] Serous drainage Bleeding with manipulation Healthy, viable tissue No areas of necrosis noted slight bleeding with manipulation No fluctuance No odor No sinus tracts, undermining or tunneling Minimal erythema and edema noted Results - Labs Result Diagrams: 11/17/16 05:04 11/17/16 05:04 Labs: Abnormal lab results RBC 3.33 M/mcL (4.19-5.50) L 11/15/16 14:43 Hgb 9.8 g/dL (12.9-16.9) L 11/15/16 14:43 Hct 31.1 % (37.5-50.1) L 11/15/16 14:43 MCHC 31.5 g/dL (31.6-35.5) L 11/15/16 14:43 Plt Count 124 K/mcL (140-400) L 11/15/16 14:43 VBG pH 7.29 pH Units (7.32-7.42) L 11/14/16 04:52 VBG pCO2 67 mmHg (41-51) H 11/14/16 04:52 VBG pO2 44 mmHg (25-40) H 11/14/16 04:52 VBG HCO3 32.2 mEq/L (21-27) H 11/14/16 04:52 BUN/Creatinine Ratio 28 (6-26) H 11/15/16 04:13 Glucose 109 mg/dL (70-99) H 11/15/16 04:13 Calcium 8.2 mg/dL (8.6-10.8) L 11/15/16 04:13 Ionized Calcium 1.09 mmol/L (1.15-1.35) L 11/14/16 04:52 C-Reactive Protein 135 mg/L (Less than 5) H 11/14/16 04:52 Serum Total Protein 5.5 g/dL (6.0-8.3) L 11/13/16 22:49 Albumin 2.8 g/dL (3.5-5.0) L 11/13/16 22:49 Albumin/Globulin Ratio 1.0 (1.1-2.2) L 11/13/16 22:49 Prealbumin 11.0 mg/dL (18.0-45.0) L 11/14/16 04:52 HDL Cholesterol 25 mg/dL (40-59) L 11/14/16 04:52 Free T3 1.47 pg/mL (1.71-3.71) L 11/14/16 04:52 Ur Specimen Adequacy See below A 11/14/16 13:13 Urine Color Red (Yellow) A 11/14/16 13:13 Urine Clarity Cloudy (Clear) A 11/14/16 13:13 Urine Protein >=300 mg/dL (Neg-Trace) H 11/14/16 13:13 Urine Ketones Trace mg/dL (Negative) H 11/14/16 13:13 Urine Blood Large (Negative) H 11/14/16 13:13 Urine Nitrite Positive (Negative) A 11/14/16 13:13 Urine Bilirubin Moderate (Negative) H 11/14/16 13:13 Ur Leukocyte Esterase Small (Negative) H 11/14/16 13:13 Staphylococcus sp PCR DETECTED (Not Detect) A 11/13/16 23:38 H & H 11/15/16 11/15/16 Range/Units 04:13 14:43 Hgb 10.1 L 9.8 L (12.9-16.9) g/dL Hct 31.8 L 31.1 L (37.5-50.1) % All other labs normal. Consult Discharge Plan - Plan Referrals: Jamie Santos MD [Primary Care Provider] - Kian Javier DO [Partnered Physician] - 12/04/16 10:40 am
[2016-11-15] MEDS: Vancomycin 1,500 MG in D5% in Water 250 ML IVPB SCH (19:55)
[2016-11-15] MEDS ORDERED: Amiodarone Premix 360 MG/200 ML BAG IVC SCH (20:00)
[2016-11-15] MEDS: *HR* LORazepam 1 MG TABLET PO SCH (21:36)
[2016-11-16] MEDS: Ipratropium/Albuterol Neb 3 ML IH SCH ×5 (00:17→22:49)
[2016-11-16] MEDS: Azithromycin 500 MG in D5% in Water 250 ML IVPB SCH (03:48)
[2016-11-16 05:26] LABS: Basophils % 0.2 %; Eosinophils # 0.4 K/mcL (0.0-0.6); Eosinophils % 7.3 %; Hematocrit 27.7 % (37.5-50.1); Hemoglobin 8.9 g/dL (12.9-16.9); Immature Granulocytes % 0.2 % (0-4); Lymphocytes % 19.1 %; Mean Corpuscular HGB Conc 32.1 g/dL (31.6-35.5); Mean Corpuscular Hemoglobin 30.1 pg (28.0-33.3); Mean Corpuscular Volume 93.6 fL (83.0-100.0); Mean Platelet Volume 10.4 fL (9.4-12.4); Monocytes # 0.3 K/mcL (0.0-1.3); Neutrophils # 3.6 K/mcL (1.6-8.9); Platelet Count 116 K/mcL (140-400); Red Blood Count 2.96 M/mcL (4.19-5.50); Red Cell Distribution Width 14.7 % (11.5-14.5); Segmented Neutrophils % 68.2 %
[2016-11-16 05:38] LABS: BUN/Creatinine Ratio 25 (6-26); Blood Urea Nitrogen 18 mg/dL (8-26); Calcium 7.7 mg/dL (8.6-10.8); Carbon Dioxide 23 mEq/L (19-29); Chloride 108 mEq/L (98-109); Glucose 122 mg/dL (70-99); Osmolality,Calculated 289 (280-300); Potassium 3.4 mEq/L (3.5-4.5); Sodium 138 mEq/L (136-145); eGFR For African Americans > 60 (> 60); eGFR For Non-African Americans > 60 (> 60)
[2016-11-16] MEDS: 0.9 % Sodium Chloride 1,000 ML IVC SCH ×3 (07:30→21:53)
[2016-11-16] MEDS: Aspirin 81 MG TAB.CHEW PO SCH (07:30)
[2016-11-16] MEDS: Gabapentin 300 MG CAPSULE PO SCH ×3 (07:30→21:51)
[2016-11-16] MEDS: Aztreonam 2,000 MG in D5% in Water (Mini-Bag+) 100 ML IVPB SCH ×3 (07:31→23:41)
[2016-11-16] MEDS ORDERED: Potassium Chloride Elixir 20 MEQ/15 ML UDC PO ONE (07:50)
--- NOTE | 2016-11-16 08:51 | Cardiology Progress Note ---
Date of Encounter: 11/16/16 Time of Encounter: 08:30 Assessment and Plan (1) PAF (paroxysmal atrial fibrillation) Current Visit: Yes Status: Acute Hx of PAF, initially diagnosed in 2014. Per review of outpatient documentation, was on Coumadin, however stopped due to significant hematuria. Afib with RVR, ~ 11:00 AM 11/15/16. Admitted to the hospital with urinary retention resulting in insertion of supra-pubic cath. Gross hematuria noted in catheter tubing. Urology has recommend SQ heparin to be d/c'ed. H/H stable this AM--HgB 10.1. TTE: EF 65-70%, mild LVDD, moderate MG=25mmHg. Converted back to NSR yesterday evening around 6:15 PM. Amio/cardizem gtt d/c' ed. Toprol XL 25 mg (home med) resumed this AM--uptitrate as BP will tolerate. BP stable this AM. Decrease maintenance fluid to 50mL/hr--will defer further mgmt to primary service. Potassium replaced this AM. (2) Gross hematuria Current Visit: Yes Status: Acute Urology following. (3) Acute kidney injury superimposed on CKD Current Visit: Yes Status: Acute Resolved, SCR normal. Discussion w patient/family: The assessment and plan as outlined above was discussed with the patient and/or family members who expressed understanding and agreement. All questions were answered. Thank you for involving us in the care of your patient. Please call with any questions. The patient will be discussed and reviewed with Dr. Gil Starks; changes to be made accordingly. Subjective Principal diagnosis: AF RVR Interval history: Seen and examined. Mentation unchanged, pleasantly confused. Denies complaints other than bilateral foot numbness and coccyx pain. Objective Vital Signs, Last 4 Hours Temp Pulse Resp BP Pulse Ox 11/16/16 07:30 98.1 F 84 18 121/61 95 11/16/16 07:00 98.1 F 84 18 121/61 95 General: Conversant HEENT: Atraumatic Results 11/16/16 05:02 11/16/16 05:02 Lab Results 11/15/16 11/16/16 11/16/16 14:43 05:02 05:02 WBC 6.4 5.2 Hgb 9.8 L 8.9 L Hct 31.1 L 27.7 L Plt Count 124 L 116 L Sodium 138 Potassium 3.4 L Chloride 108 Carbon Dioxide 23 BUN 18 Creatinine 0.73 Glucose 122 H Calcium 7.7 L - Imaging and Cardiology Echo: report reviewed Other Results: Telemetry reviewed. Consult Discharge Plan - Plan Referrals: Jamie Santos MD [Primary Care Provider] -
[2016-11-16] MEDS ORDERED: Metoprolol XL (24 HR) Succ 25 MG TAB.ER.24H PO SCH (09:00)
--- NOTE | 2016-11-16 11:24 | Internal Med Progress Note ---
Date of Encounter: 11/16/16 Time of Encounter: 09:00 - Assessment and plan (1) HCAP (healthcare-associated pneumonia) Current Visit: Yes Status: Acute Assessment and plan: Patient has pneumonia, He is from long term, treat patient health care associated pneumonia. Continue Vanco, azithromycin, and aztreonam. CT chest done, suggest RLL pneumonia. Patient is at high risk because of vancomycin, which need close monitoring (2) Atrial fibrillation with rapid ventricular response Current Visit: Yes Status: Acute Assessment and plan: Patient has history of A Fib. Now converted to sinus rhythm. We will keep the patient on beta jeremiah. Amioderone and cardizem drip discontinued. (3) Cellulitis and abscess of foot Current Visit: Yes Status: Acute Assessment and plan: Patient is on antibiotics. We will continue wound care and consult podiatry. (4) Hypotension Current Visit: Yes Status: Acute Assessment and plan: Etiology is undetermined. Possibly due to hypovolemic status. Improved after IV fluid in ER. Off dopamine drip now. Will continue closely monitor BP level. Qualifiers: Hypotension type: other hypotension type Qualified Code(s): I95.89 - Other hypotension (5) Urinary (tract) obstruction Current Visit: Yes Status: Acute Assessment and plan: Patient has a history of BPH and Following urology as outpatient. Suprapubic catheter was placed by urology. (6) Dementia in Alzheimer's disease Current Visit: Yes Status: Chronic Assessment and plan: We will continue home medications (7) DVT prophylaxis Current Visit: Yes Status: Acute Assessment and plan: EPCD - Time Spent With Patient 25 - 35 minutes - Subjective Interval history: Patient is a 81-year-old male admitted for hypotension and pneumonia. His past medical history is significant for dementia, CAD, hyperlipidemia, hypertension, PAD, A. fib, TIA, BPH. Patient was seen and examined, patient denies cough or shortness of breath. His heart rhythm has been convert to sinus rhythm. Cardizem and amiodarone drip has been discontinued per cardiology consult. We will continue treat pneumonia. Slightly dropped the hemoglobin possibly due to hematuria. We will continue to closely monitor H&H. - Constitutional Vitals: Temp Pulse Resp BP Pulse Ox 98.1 F 84 18 121/61 95 11/16/16 07:30 11/16/16 07:30 11/16/16 07:30 11/16/16 07:30 11/16/16 07:30 General appearance: Present: cachectic, cooperative, A&O X 1, obese, severe distress. Absent: answers questions appropriately - Head Head exam: Present: atraumatic, normocephalic - Eye Eye exam: Present: PERRL, conjuntiva pink, sclera anicteric Pupils: Present: PERRL - Neck Neck exam general surgery: Present: supple, trachea midline. Absent: lymphadenopathy - Respiratory Respiratory exam: Present: CTAB. Absent: accessory muscle use, rales, rhonchi, wheezes - Cardiovascular Cardiovascular exam: Present: RRR, +S1, +S2. Absent: diastolic murmur, gallop, rubs, systolic murmur - GI/Abdominal GI/Abdominal exam: Present: normal bowel sounds, soft, no peritoneal signs. Absent: distended, tenderness Additional comments: Suprapubic catheter is in place - Extremities Exam Extremities exam: Present: warm, radial pulses palpable and symetrical. Absent : calf tenderness, cyanotic, pedal edema - Neurological Exam Neurological exam: Present: CN II-XII intact, oriented X3, no focal deficits. Absent: pronater drift, facial droop, speech deficit - Skin Skin exam: Present: dry, intact Internal Medicine: Result - Labs CBC & Chem 7: 11/16/16 05:02 11/16/16 05:02 Labs: Short CBC 11/15/16 11/16/16 Range/Units 14:43 05:02 WBC 6.4 5.2 (4.3-11.1) K/mcL Hgb 9.8 L 8.9 L (12.9-16.9) g/dL Hct 31.1 L 27.7 L (37.5-50.1) % Plt Count 124 L 116 L (140-400) K/mcL Neutrophils # 4.8 3.6 (1.6-8.9) K/mcL BMP 11/16/16 05:02 Sodium 138 Potassium 3.4 L Chloride 108 Carbon Dioxide 23 BUN 18 Creatinine 0.73 Glucose 122 H Calcium 7.7 L Consult Discharge Plan - Plan Referrals: Jamie Santos MD [Primary Care Provider] -
[2016-11-16] MEDS ORDERED: Metoprolol XL (24 HR) Succ 25 MG TAB.ER.24H PO ONE (13:00)
[2016-11-16] MEDS: *HR* OxyCODONE Immed Rel 5 MG TABLET PO PRN ×2 (15:53→21:52)
[2016-11-16] MEDS ORDERED: *HR* Belladonna Alkaloids/Opium 30 MG RECTAL SUPPOSITORY RC PRN (16:19)
--- NOTE | 2016-11-16 16:19 | Urology Progress Note ---
Date of Encounter: 11/16/16 Time of Encounter: 16:17 - Assessment and Plan (1) Urethral stricture Current Visit: Yes Status: Acute Assessment and plan: may attempt to upsize SPT at bedsire before transfer to outside facility. 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 (2) Gross hematuria Current Visit: Yes Status: Acute Progress Note Subjective: no new complaints, still having pain (mild) Objective Initial Vital Signs Temp Pulse Resp BP Pulse Ox 97.8 F 53 16 79/50 94 L 11/13/16 22:41 11/13/16 22:41 11/13/16 22:41 11/13/16 22:41 11/13/16 22:41 - General physical appearance Present: no distress - Abdomen Present: soft - Additional Exam urine transparent red - Labs 11/16/16 05:02 11/16/16 05:02 Diabetes panel 11/16/16 Range/Units 05:02 Sodium 138 (136-145) mEq/L Potassium 3.4 L (3.5-4.5) mEq/L Chloride 108 (98-109) mEq/L Carbon Dioxide 23 (19-29) mEq/L BUN 18 (8-26) mg/dL Creatinine 0.73 (0.72-1.25) mg/dL Glucose 122 H (70-99) mg/dL Calcium 7.7 L (8.6-10.8) mg/dL Calcium panel 11/16/16 Range/Units 05:02 Calcium 7.7 L (8.6-10.8) mg/dL Pituitary panel 11/14/16 11/16/16 Range/Units 04:52 05:02 Sodium 138 (136-145) mEq/L Potassium 3.4 L (3.5-4.5) mEq/L Chloride 108 (98-109) mEq/L Carbon Dioxide 23 (19-29) mEq/L BUN 18 (8-26) mg/dL Creatinine 0.73 (0.72-1.25) mg/dL Glucose 122 H (70-99) mg/dL Calcium 7.7 L (8.6-10.8) mg/dL ACTH 9 (7-69) pg/mL Adrenal panel 11/14/16 11/16/16 Range/Units 04:52 05:02 Sodium 138 (136-145) mEq/L Potassium 3.4 L (3.5-4.5) mEq/L Chloride 108 (98-109) mEq/L Carbon Dioxide 23 (19-29) mEq/L BUN 18 (8-26) mg/dL Creatinine 0.73 (0.72-1.25) mg/dL Glucose 122 H (70-99) mg/dL Calcium 7.7 L (8.6-10.8) mg/dL ACTH 9 (7-69) pg/mL Consult Discharge Plan - Plan Referrals: Jamie Santos MD [Primary Care Provider] - Kian Javier DO [Partnered Physician] - 12/04/16 10:40 am
--- NOTE | 2016-11-16 16:32 | Electrocardiograph Report ---
[address] [place], [place] [address] Test Date: 2016-11-15 Pat Name: Abelino Rogers Department: 110 Room: 2N05 Gender: M Quality Technician: : [id number] Requested By: Marisela Albrecht Order Number: [id number] Reading MD: Gil Starks Measurements Intervals [place] Rate: 82 P: 66 ME: 196 QRS: 4 QRSD: 100 T: 33 QT: 379 QTc: 418 Interpretive Statements SINUS RHYTHM WITH SINUS ARRHYTHMIA LOW QRS VOLTAGE IN EXTREMITY LEADS Electronically Signed On 11-16-2016 16:30:57 EST by Gil Starks
[2016-11-16] MEDS: Vancomycin 1,500 MG in D5% in Water 250 ML IVPB SCH (20:15)
[2016-11-16] MEDS: *HR* LORazepam 1 MG TABLET PO SCH (21:51)
[2016-11-17] MEDS: Azithromycin 500 MG in D5% in Water 250 ML IVPB SCH (04:33)
[2016-11-17] MEDS: Ipratropium/Albuterol Neb 3 ML IH SCH ×4 (05:01→23:52)
[2016-11-17 06:03] LABS: Basophils % 0.2 %; Eosinophils # 0.3 K/mcL (0.0-0.6); Hematocrit 29.4 % (37.5-50.1); Hemoglobin 9.3 g/dL (12.9-16.9); Immature Granulocytes % 0.2 % (0-4); Lymphocytes # 0.8 K/mcL (0.6-4.6); Lymphocytes % 17.5 %; Mean Corpuscular HGB Conc 31.6 g/dL (31.6-35.5); Mean Corpuscular Hemoglobin 29.4 pg (28.0-33.3); Monocytes # 0.3 K/mcL (0.0-1.3); Monocytes % 5.8 %; Platelet Count 136 K/mcL (140-400); Red Blood Count 3.16 M/mcL (4.19-5.50); Red Cell Distribution Width 14.3 % (11.5-14.5); Segmented Neutrophils % 69.3 %
[2016-11-17 06:18] LABS: BUN/Creatinine Ratio 16 (6-26); Blood Urea Nitrogen 12 mg/dL (8-26); Calcium 7.9 mg/dL (8.6-10.8); Carbon Dioxide 24 mEq/L (19-29); Chloride 107 mEq/L (98-109); Glucose 103 mg/dL (70-99); Osmolality,Calculated 286 (280-300); Potassium 3.7 mEq/L (3.5-4.5); Sodium 138 mEq/L (136-145); eGFR For African Americans > 60 (> 60); eGFR For Non-African Americans > 60 (> 60)
[2016-11-17] MEDS: *HR* OxyCODONE Immed Rel 5 MG TABLET PO PRN ×2 (06:38→13:36)
[2016-11-17] MEDS: Gabapentin 300 MG CAPSULE PO SCH ×3 (08:31→20:07)
[2016-11-17] MEDS: Aspirin 81 MG TAB.CHEW PO SCH (08:31)
[2016-11-17] MEDS: Metoprolol XL (24 HR) Succ 25 MG TAB.ER.24H PO SCH (08:32)
[2016-11-17] MEDS: Aztreonam 2,000 MG in D5% in Water (Mini-Bag+) 100 ML IVPB SCH ×3 (08:41→23:19)
--- NOTE | 2016-11-17 12:37 | Podiatry Progress Note ---
Date of Encounter: 11/16/16 Time of Encounter: 17:00 - Assessment and Plan (1) Pressure ulcer of left heel Current Visit: Yes Status: Acute Assessment at bedside Continue current antibiotic therapy per medical recommendations No concern of infection of ulcer at this time Heels to be floated off of bed at all times Daily dressing change with adaptic, 4x4 and kerlex Change PRN if soiled Call with any changes or concerns Qualifiers: Pressure ulcer stage: stage 2 Qualified Code(s): L89.622 - Pressure ulcer of left heel, stage 2 (2) Pressure ulcer of right heel Current Visit: Yes Status: Acute Assessment at bedside Continue current antibiotic therapy per medical recommendations No concern of infection of ulcer at this time Heels to be floated off of bed at all times Daily dressing change with adaptic, 4x4 and kerlex Change PRN if soiled Call with any changes or concerns Qualifiers: Pressure ulcer stage: stage 2 Qualified Code(s): L89.612 - Pressure ulcer of right heel, stage 2 (3) 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 Rogers is a 81 year old male who we are following for pressure ulcers of bilateral heels. Patient resting comfortably on arrival today. Vital signs stable. Nurse states patient recently returned to room from suprapubic catheter placement. Patient expresses dementia and is unable to report any feelings of pain or issues at this time. Dressings intact, strikethrough serous drainage to RLE. Objective - Vital Signs Vital Signs: Vital Signs Temp Pulse Resp BP Pulse Ox 11/17/16 11:42 74 11/17/16 11:26 98 F 74 18 122/70 96 11/17/16 10:09 18 94 L 11/17/16 08:00 77 11/17/16 07:30 99.2 F 77 20 127/76 95 11/17/16 05:23 98.5 F 83 18 124/75 94 L 11/17/16 05:01 18 95 11/16/16 23:58 98.3 F 89 16 139/81 93 L 11/16/16 22:50 16 93 L 11/16/16 19:53 99.7 F H 86 16 153/89 91 L 11/16/16 16:18 16 92 L 11/16/16 15:45 98.9 F 79 16 120/68 93 L Intake and Output 11/16/16 11/17/16 11/17/16 23:59 07:59 15:59 Intake Total 1500 / 1500 100 / 100 220 / 220 Output Total 750 / 750 1100 / 1100 Balance 750 / 750 100 / 100 -880 / -880 Intake: IV Fluids 1350 / 1350 100 / 100 100 / 100 0.9 % Sodium Chloride 1, 1000 / 1000 000 ML @ 50 mls/hr IVC . Q20H DAY Rx#:[id number] Azactam 2,000 MG In 100 / 100 100 / 100 100 / 100 Dextrose 5% (Minibag+) 100 ML 100 ML @ 200 mls/ hr IVPB Q8HR DAY Rx#: [id number] Vancocin 1,500 MG In 250 / 250 Dextrose 5% 250 ML @ 166. 67 mls/hr IVPB Q24H DAY Rx#:[id number] Oral 150 / 150 120 / 120 Output: Catheter 750 / 750 1100 / 1100 Other: Meal Dinner Breakfast Percent of Meal Consumed 10% 75% Weight 93.7 kg Patient Weight 11/17/16 23:59 Weight 93.7 kg - Exam Exam: General Examination: CONSTITUTIONAL: Alert, not oriented, in no distress at this time EXTREMITIES: CFT 3 seconds all toes. Edema +2 and pedal pulses faintly palpable. Mild erythema noted to mid tibial region SKIN: Skin with decreased turgor, decreased subcutaneous tissue, skin thin and shiny with trophic changes associated with comorbidities as described in history.. NEUROLOGIC: Loss of sensation to light touch Dressings intact to BLE - Lab Result Diagrams: 11/17/16 05:04 11/17/16 05:04 Labs: Abnormal lab results RBC 3.16 M/mcL (4.19-5.50) L 11/17/16 05:04 Hgb 9.3 g/dL (12.9-16.9) L 11/17/16 05:04 Hct 29.4 % (37.5-50.1) L 11/17/16 05:04 Plt Count 136 K/mcL (140-400) L 11/17/16 05:04 VBG pH 7.29 pH Units (7.32-7.42) L 11/14/16 04:52 VBG pCO2 67 mmHg (41-51) H 11/14/16 04:52 VBG pO2 44 mmHg (25-40) H 11/14/16 04:52 VBG HCO3 32.2 mEq/L (21-27) H 11/14/16 04:52 Glucose 103 mg/dL (70-99) H 11/17/16 05:04 Calcium 7.9 mg/dL (8.6-10.8) L 11/17/16 05:04 Ionized Calcium 1.09 mmol/L (1.15-1.35) L 11/14/16 04:52 C-Reactive Protein 135 mg/L (Less than 5) H 11/14/16 04:52 Serum Total Protein 5.5 g/dL (6.0-8.3) L 11/13/16 22:49 Albumin 2.8 g/dL (3.5-5.0) L 11/13/16 22:49 Albumin/Globulin Ratio 1.0 (1.1-2.2) L 11/13/16 22:49 Prealbumin 11.0 mg/dL (18.0-45.0) L 11/14/16 04:52 HDL Cholesterol 25 mg/dL (40-59) L 11/14/16 04:52 Free T3 1.47 pg/mL (1.71-3.71) L 11/14/16 04:52 Ur Specimen Adequacy See below A 11/14/16 13:13 Urine Color Red (Yellow) A 11/14/16 13:13 Urine Clarity Cloudy (Clear) A 11/14/16 13:13 Urine Protein >=300 mg/dL (Neg-Trace) H 11/14/16 13:13 Urine Ketones Trace mg/dL (Negative) H 11/14/16 13:13 Urine Blood Large (Negative) H 11/14/16 13:13 Urine Nitrite Positive (Negative) A 11/14/16 13:13 Urine Bilirubin Moderate (Negative) H 11/14/16 13:13 Ur Leukocyte Esterase Small (Negative) H 11/14/16 13:13 Staphylococcus sp PCR DETECTED (Not Detect) A 11/13/16 23:38 Microbiology, Last 48 Hours 11/14/16 13:13 Legionella Antigen - Final Urine,Clean Catch Streptococcus pneumoniae Antigen (M - Final Consult Discharge Plan - Plan Referrals: Jamie Santos MD [Primary Care Provider] - Kian Javier DO [Partnered Physician] - 12/04/16 10:40 am
--- NOTE | 2016-11-17 14:31 | Internal Med Progress Note ---
Date of Encounter: 11/17/16 Time of Encounter: 10:00 - Assessment and plan (1) HCAP (healthcare-associated pneumonia) Current Visit: Yes Status: Acute Assessment and plan: Patient has pneumonia, He is from residential, treat patient health care associated pneumonia. Continue Vanco, azithromycin, and aztreonam. CT chest done, suggest RLL pneumonia. Patient is at high risk because of vancomycin, which need close monitoring (2) Atrial fibrillation with rapid ventricular response Current Visit: Yes Status: Acute Assessment and plan: Patient has history of A Fib. Now converted to sinus rhythm. We will keep the patient on beta jeremiah. Amioderone and cardizem drip discontinued. (3) Cellulitis and abscess of foot Current Visit: Yes Status: Acute Assessment and plan: Patient is on antibiotics. We will continue wound care. podiatry consult appreciated. (4) Hypotension Current Visit: Yes Status: Acute Assessment and plan: Etiology is undetermined. Possibly due to hypovolemic status. Improved after IV fluid in ER. Off dopamine drip now. Will continue closely monitor BP level. BP is stable now. Qualifiers: Hypotension type: other hypotension type Qualified Code(s): I95.89 - Other hypotension (5) Urinary (tract) obstruction Current Visit: Yes Status: Acute Assessment and plan: Patient has a history of BPH and Following urology as outpatient. Suprapubic catheter was placed by urology. (6) Dementia in Alzheimer's disease Current Visit: Yes Status: Chronic Assessment and plan: We will continue home medications (7) DVT prophylaxis Current Visit: Yes Status: Acute Assessment and plan: EPCD - Time Spent With Patient Greater than 35 minutes - Subjective Interval history: Patient is a 81-year-old male admitted for hypotension and pneumonia. His past medical history is significant for dementia, CAD, hyperlipidemia, hypertension, PAD, A. fib, TIA, BPH. Patient was seen and examined, patient denies cough or shortness of breath. His heart rhythm has been convert to sinus rhythm and keep in sinus arrhythmia. On metoprolol by mouth. We will continue treat pneumonia. Still has hematuria, hemoglobin stable, urology on case. We will continue to closely monitor H&H. - Constitutional Vitals: Temp Pulse Resp BP Pulse Ox 98 F 74 18 122/70 96 11/17/16 11:26 11/17/16 11:42 11/17/16 11:26 11/17/16 11:26 11/17/16 11:26 General appearance: Present: cachectic, cooperative, A&O X 1, obese, severe distress. Absent: answers questions appropriately - Head Head exam: Present: atraumatic, normocephalic - Eye Eye exam: Present: PERRL, conjuntiva pink, sclera anicteric Pupils: Present: PERRL - Neck Neck exam general surgery: Present: supple, trachea midline. Absent: lymphadenopathy - Respiratory Respiratory exam: Present: CTAB. Absent: accessory muscle use, rales, rhonchi, wheezes - Cardiovascular Cardiovascular exam: Present: RRR, +S1, +S2. Absent: diastolic murmur, gallop, rubs, systolic murmur - GI/Abdominal GI/Abdominal exam: Present: normal bowel sounds, soft, no peritoneal signs. Absent: distended, tenderness - Extremities Exam Extremities exam: Present: warm, radial pulses palpable and symetrical. Absent : calf tenderness, cyanotic, pedal edema Additional comments: Both heel ulcer, well dressed - Neurological Exam Neurological exam: Present: CN II-XII intact, oriented X3, no focal deficits. Absent: pronater drift, facial droop, speech deficit - Skin Skin exam: Present: dry, intact Internal Medicine: Result - Labs CBC & Chem 7: 11/17/16 05:04 11/17/16 05:04 Labs: Short CBC 11/17/16 Range/Units 05:04 WBC 4.3 (4.3-11.1) K/mcL Hgb 9.3 L (12.9-16.9) g/dL Hct 29.4 L (37.5-50.1) % Plt Count 136 L (140-400) K/mcL Neutrophils # 3.0 (1.6-8.9) K/mcL BMP 11/17/16 05:04 Sodium 138 Potassium 3.7 Chloride 107 Carbon Dioxide 24 BUN 12 Creatinine 0.74 Glucose 103 H Calcium 7.9 L Consult Discharge Plan - Plan Referrals: Jamie Santos MD [Primary Care Provider] - Kian Javier DO [Partnered Physician] - 12/04/16 10:40 am
[2016-11-17] MEDS: *HR* Morphine 2 MG/ML SYRINGE IVP PRN ×2 (16:00→23:20)
--- NOTE | 2016-11-17 16:05 | Urology Procedure Note ---
Date of Encounter: 11/17/16 Time of Encounter: 12:00 Procedures:Urology - Suprapubic Catheter Replacement Reason for Suprapubic Catheter: upsize SPT Skin cleansed in sterile fashion: Yes (betadine) Anesthetic Used: lidocaine 1% Suprapubic Type and Size: 14 burmese carter cath. Suprapubic Technique Procedure: over wire after dilation of tract with 18 burmese uromax Urine Appearance: Hematuria (transparent) Patient tolerated procedure: well Additional comments: I placed a guidewire through the bona SPT. skin anesthetized with 10 cc of 1 % lidocaine. 11 blade used to incise the skin. over wire uromax balloon used to dilate the tract. able to place a 14 burmese carter over the wire with return on transparent hematuria. no complications. balloon inflated with 15 cc of sterile water.
[2016-11-17] MEDS ORDERED: *HR* Metoprolol 5 MG/5 ML VIAL IVP ONE (18:28)
[2016-11-17] MEDS: *HR* Metoprolol 5 MG/5 ML VIAL IVP PRN (18:35)
[2016-11-17] MEDS ORDERED: Furosemide 20 MG/2 ML VIAL IVP ONE (19:32)
[2016-11-17] MEDS: Vancomycin 1,500 MG in D5% in Water 250 ML IVPB SCH (20:07)
[2016-11-17] MEDS: *HR* LORazepam 1 MG TABLET PO SCH (20:07)
[2016-11-17] MEDS ORDERED: *HR* Digoxin 0.5 MG/2 ML AMPUL IVP ONE (23:49)
[2016-11-17] MEDS ORDERED: Furosemide 40 MG/4 ML VIAL IVP ONE (23:59)
[2016-11-18 01:39] LABS: Basophils % 0.1 %; Eosinophils # 0.2 K/mcL (0.0-0.6); Hematocrit 34.7 % (37.5-50.1); Immature Granulocytes % 0.4 % (0-4); Lymphocytes % 15.4 %; Mean Corpuscular HGB Conc 32.3 g/dL (31.6-35.5); Mean Corpuscular Hemoglobin 29.3 pg (28.0-33.3); Mean Corpuscular Volume 90.8 fL (83.0-100.0); Mean Platelet Volume 9.5 fL (9.4-12.4); Monocytes # 0.4 K/mcL (0.0-1.3); Monocytes % 5.6 %; Neutrophils # 5.1 K/mcL (1.6-8.9); Platelet Count 165 K/mcL (140-400); Red Blood Count 3.82 M/mcL (4.19-5.50); Red Cell Distribution Width 14.2 % (11.5-14.5); Segmented Neutrophils % 75.5 %
[2016-11-18 01:42] LABS: Hemoglobin 11.2 g/dL (12.9-16.9)
[2016-11-18 01:56] LABS: BUN/Creatinine Ratio 16 (6-26); Blood Urea Nitrogen 13 mg/dL (8-26); Calcium 8.6 mg/dL (8.6-10.8); Carbon Dioxide 25 mEq/L (19-29); Chloride 99 mEq/L (98-109); Creatine Kinase 122 Units/L (30-200); Glucose 126 mg/dL (70-99); Magnesium 1.5 mg/dL (1.6-2.6); Osmolality,Calculated 286 (280-300); Potassium 3.7 mEq/L (3.5-4.5); Sodium 137 mEq/L (136-145); eGFR For African Americans > 60 (> 60); eGFR For Non-African Americans > 60 (> 60)
[2016-11-18 02:13] LABS: Platelet Estimate Normal (Normal); Reactive Lymphocytes Present (Not Present)
[2016-11-18] MEDS ORDERED: Magnesium Sulfate 2 GM in D5% in Water 100 ML IVPB ONE (02:25)
[2016-11-18] MEDS ORDERED: Potassium Chloride 20 MEQ, Lidocaine 1% 2 ML in D5% in Water 250 ML IVPB ONE (02:26)
[2016-11-18] MEDS ORDERED: *HR* Digoxin 0.5 MG/2 ML AMPUL IVP ONE ×2 (02:27→17:50)
[2016-11-18] MEDS: Azithromycin 500 MG in D5% in Water 250 ML IVPB SCH (03:11)
[2016-11-18] MEDS: Ipratropium/Albuterol Neb 3 ML IH SCH ×4 (03:59→22:33)
--- NOTE | 2016-11-18 07:30 | Urology Progress Note ---
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 no extravasation. balloon appeared to be within bladder lumen. unknown why increase in hematuria. will observe for now increase in troponins noted. caution in giving any anticoagulation because of the hematuria. Progress Note Narrative: increase in hematuria overnight this AM. pt also with tachycardia, low BP. nurse required to irrigate clot once overnight. Objective Initial Vital Signs Temp Pulse Resp BP Pulse Ox 97.8 F 53 16 79/50 94 L 11/13/16 22:41 11/13/16 22:41 11/13/16 22:41 11/13/16 22:41 11/13/16 22:41 - General physical appearance Present: no distress - Abdomen Present: soft - Additional Exam dark hematuria in tube. irrigated moderate clots. at times difficult to irrigate - Labs 11/18/16 01:20 11/18/16 01:20 Diabetes panel 11/18/16 Range/Units 01:20 Sodium 137 (136-145) mEq/L Potassium 3.7 (3.5-4.5) mEq/L Chloride 99 (98-109) mEq/L Carbon Dioxide 25 (19-29) mEq/L BUN 13 (8-26) mg/dL Creatinine 0.80 (0.72-1.25) mg/dL Glucose 126 H (70-99) mg/dL Calcium 8.6 (8.6-10.8) mg/dL Calcium panel 11/18/16 Range/Units 01:20 Calcium 8.6 (8.6-10.8) mg/dL Pituitary panel 11/18/16 Range/Units 01:20 Sodium 137 (136-145) mEq/L Potassium 3.7 (3.5-4.5) mEq/L Chloride 99 (98-109) mEq/L Carbon Dioxide 25 (19-29) mEq/L BUN 13 (8-26) mg/dL Creatinine 0.80 (0.72-1.25) mg/dL Glucose 126 H (70-99) mg/dL Calcium 8.6 (8.6-10.8) mg/dL Adrenal panel 11/18/16 Range/Units 01:20 Sodium 137 (136-145) mEq/L Potassium 3.7 (3.5-4.5) mEq/L Chloride 99 (98-109) mEq/L Carbon Dioxide 25 (19-29) mEq/L BUN 13 (8-26) mg/dL Creatinine 0.80 (0.72-1.25) mg/dL Glucose 126 H (70-99) mg/dL Calcium 8.6 (8.6-10.8) mg/dL - VTE Documentation of Mechanical Device: Intermittent pneumatic compression device Consult Discharge Plan - Plan Referrals: Jamie Santos MD [Primary Care Provider] - Kian Javier DO [Partnered Physician] - 12/04/16 10:40 am
[2016-11-18] MEDS: Aztreonam 2,000 MG in D5% in Water (Mini-Bag+) 100 ML IVPB SCH ×2 (09:03→15:46)
[2016-11-18] MEDS: Gabapentin 300 MG CAPSULE PO SCH ×3 (09:03→21:53)
[2016-11-18] MEDS: Aspirin 81 MG TAB.CHEW PO SCH (09:04)
[2016-11-18] MEDS: Metoprolol XL (24 HR) Succ 25 MG TAB.ER.24H PO SCH (09:14)
--- NOTE | 2016-11-18 11:02 | Cardiology Progress Note ---
<Gabe Bourne - Last Filed: 11/18/16 11:07> Date of Encounter: 11/18/16 Time of Encounter: 11:00 Assessment and Plan (1) Elevated troponin Current Visit: Yes Status: Acute 0.99, 1.01 in setting of PNA, cellulitis, PAF with RVR. Demand ischemia vs. NSTEMI--nondiagnostic. Pt is severely demented, not oriented to person, place or time. Unable to answer if he has chest pain. Pt is DNR-CCA. Recommend medical management. Pt is not a candidate for any invasive evaluation. Continue ASA, Statin, BB. EF preserved on echo. Cardiology signing off. Reconsult PRN. (2) Atrial fibrillation with rapid ventricular response Current Visit: Yes Status: Acute Hx of PAF, initially diagnosed in 2014. Recurrent while inpt but in setting of PNA, cellulitus. Per review of outpatient documentation, was on Coumadin, however stopped due to significant hematuria. TTE: EF 65-70%, mild LVDD, moderate MG=25mmHg. Currently now in SR. Toprol XL 50 mg daily--uptitrate as BP will tolerate. BP currently will not tolerate increase--70s systolic. No further changes. Discussion w patient/family: The assessment and plan as outlined above was discussed with the patient and/or family members who expressed understanding and agreement. All questions were answered. Thank you for involving us in the care of your patient. Please call with any questions. I will discuss all the above with Dr. Ku and make changes as necessary. Subjective Principal diagnosis: AF RVR Interval history: Cardiology reconsulted due to recurrent PAF with RVR and troponin increase--0.99 , 1.10. Pt is significantly demented. Not oriented to person, place or time, unable to obtain any history or symptoms. Objective Vital Signs, Last 4 Hours Temp Pulse Resp BP Pulse Ox 11/18/16 09:45 84 11/18/16 07:44 99.7 F H 84 18 105/61 91 L Vital Signs Temp Pulse Resp BP Pulse Ox 11/18/16 09:45 84 11/18/16 07:44 99.7 F H 84 18 105/61 91 L 11/18/16 04:01 22 90 L 11/18/16 03:10 99.9 F H 127 18 91/77 92 L 11/18/16 01:42 141 16 91/43 90 L 11/18/16 00:10 97.8 F 95 15 104/67 89 L 11/17/16 23:52 24 87 L 11/17/16 23:15 142 11/17/16 21:46 92 149/86 11/17/16 20:10 100 F H 109 20 170/96 92 L 11/17/16 16:58 20 92 L 11/17/16 15:50 99.5 F 88 22 176/95 90 L 11/17/16 15:00 86 11/17/16 11:42 74 11/17/16 11:26 98 F 74 18 122/70 96 Intake and Output 11/17/16 11/18/16 11/18/16 23:59 07:59 15:59 Intake Total 1750 / 1750 0 / 0 Output Total 1700 / 1700 1550 / 1550 1000 / 1000 Balance 50 / 50 -1550 / -1550 -1000 / -1000 Intake: IV Fluids 1250 / 1250 0.9 % Sodium Chloride 1, 800 / 800 000 ML @ 50 mls/hr IVC . Q20H DAY Rx#:[id number] Azactam 2,000 MG In 200 / 200 Dextrose 5% (Minibag+) 100 ML 100 ML @ 200 mls/ hr IVPB Q8HR DAY Rx#: [id number] Vancocin 1,500 MG In 250 / 250 Dextrose 5% 250 ML @ 166. 67 mls/hr IVPB Q24H DAY Rx#:[id number] Oral 500 / 500 0 / 0 Output: Urine 500 / 500 500 / 500 Suprapubic 500 / 500 500 / 500 Catheter 1700 / 1700 1050 / 1050 500 / 500 Other: Weight 94 kg Blood Glucose* 147 Patient Weight 11/18/16 23:59 Weight 94 kg General: No Apparent Distress HEENT: Atraumatic, Normocephaly, Mucus Membranes Moist Neck: No JVD, Normal carotid pulses Cardiac: Reg Rate and Rhythm, Normal S1 and S2, No Murmur Lungs: Normal Breath Sounds, No Wheeze, Rales, Rhonchi Neuro: Other (demented, confused) Abdomen: Soft, Non-Tender Skin: No rashes noted on visualized skin Musculoskeletal: No Chest Wall Tenderness Extremities: No Clubbing, No Cyanosis, No Edema, Normal Pulses Results 11/18/16 01:20 11/18/16 01:20 Lab Results 11/18/16 11/18/16 11/18/16 01:20 01:20 01:20 WBC 6.7 D Hgb 11.2 L D Hct 34.7 L Plt Count 165 Sodium 137 Potassium 3.7 Chloride 99 Carbon Dioxide 25 BUN 13 Creatinine 0.80 Glucose 126 H Calcium 8.6 Magnesium 1.5 L Troponin I 0.99 H* 11/18/16 05:37 WBC Hgb Hct Plt Count Sodium Potassium Chloride Carbon Dioxide BUN Creatinine Glucose Calcium Magnesium Troponin I 1.10 H* Short CBC 11/18/16 Range/Units 01:20 WBC 6.7 D (4.3-11.1) K/mcL Hgb 11.2 L D (12.9-16.9) g/dL Hct 34.7 L (37.5-50.1) % Plt Count 165 (140-400) K/mcL Neutrophils # 5.1 (1.6-8.9) K/mcL BMP 11/18/16 Range/Units 01:20 Sodium 137 (136-145) mEq/L Potassium 3.7 (3.5-4.5) mEq/L Chloride 99 (98-109) mEq/L Carbon Dioxide 25 (19-29) mEq/L BUN 13 (8-26) mg/dL Creatinine 0.80 (0.72-1.25) mg/dL Glucose 126 H (70-99) mg/dL Calcium 8.6 (8.6-10.8) mg/dL Cardiac Enzymes 11/18/16 11/18/16 Range/Units 05:37 01:20 Troponin I 1.10 H* 0.99 H* (0-0.03) ng/mL Impressions KUB X-Ray 11/18/16 06:47 IMPRESSION: Contrast opacifies the urinary bladder. D/ / 11/18/2016 07:48:41 Ju Sandoval MD / renee Interpreting Provider: Ju Sandoval MD Active Medications Acetaminophen (Tylenol) 650 mg PO Q6HR PRN PRN Reason: Mild Pain (1-3) Stop: 05/16/17 03:10 Al Hydrox/Mg Hydrox/Simethicone (Maalox) 15 ml PO Q6HR PRN PRN Reason: Dyspepsia Stop: 05/16/17 03:10 Albuterol Sulfate (Proventil Neb) 2.5 mg IH Q2H PRN PRN Reason: Shortness Of Breath/Wheezing Stop: 05/16/17 03:10 Albuterol/Ipratropium (Duoneb) 3 ml IH QIDR DAY Stop: 05/16/17 05:01 Last Admin: 11/18/16 10:00 Dose: 3 ml Aspirin (Aspirin) 81 mg PO DAILY [facility] Stop: 05/16/17 09:01 Last Admin: 11/18/16 09:04 Dose: 81 mg Belladonna Alkaloids/Opium (B + O) 30 mg RC Q6HR PRN PRN Reason: Spasms Stop: 05/18/17 16:20 Benzonatate (Tessalon) 200 mg PO TID PRN PRN Reason: Cough Stop: 05/16/17 03:10 Betamethasone Valerate (Valisone 0.1%) 1 appl TP BID [facility] Stop: 05/16/17 09:01 Last Admin: 11/18/16 09:32 Dose: 1 appl Docusate Sodium (Colace) 100 mg PO BID PRN PRN Reason: Constipation Stop: 05/16/17 03:10 Furosemide (Lasix) 20 mg PO DAILY [facility] Stop: 05/20/17 09:46 Gabapentin (Neurontin) 300 mg PO TID [facility] Stop: 05/16/17 09:01 Last Admin: 11/18/16 09:03 Dose: 300 mg Guaifenesin (Mucinex) 600 mg PO BID [facility] Stop: 05/16/17 09:01 Last Admin: 11/18/16 09:04 Dose: 600 mg Haloperidol (Haldol) 5 mg PO TID [facility] Stop: 05/19/17 21:01 Last Admin: 11/18/16 09:32 Dose: 5 mg Azithromycin 500 mg/ Dextrose 250 mls @ 252 mls/hr IVPB Q24H [facility] Stop: 05/16/17 04:01 Last Admin: 11/18/16 03:11 Dose: 250 mls/hr Aztreonam 2,000 mg/ Dextrose 100 mls @ 200 mls/hr IVPB Q8HR [facility] Stop: 05/16/17 08:01 Last Admin: 11/18/16 09:03 Dose: 200 mls/hr Vancomycin HCl 1,500 mg/ (Dextrose) 250 mls @ 166.67 mls/hr IVPB Q24H DAY Stop: 05/16/17 20:01 Last Infusion: 11/17/16 21:45 Dose: Infused Lorazepam (Ativan) 1 mg PO HS DAY Stop: 05/16/17 21:01 Last Admin: 11/17/16 20:07 Dose: 1 mg Metoprolol Succinate (Toprol Xl) 50 mg PO DAILY DAY Stop: 05/19/17 09:01 Last Admin: 11/18/16 09:14 Dose: Not Given Metoprolol Tartrate (Lopressor) 5 mg IVP Q6HR PRN PRN Reason: Heart Rate- High Stop: 05/19/17 18:15 Last Admin: 11/17/16 18:35 Dose: 5 mg Morphine Sulfate (Morphine Sulfate) 2 mg IVP Q4HR PRN PRN Reason: Severe Pain (7-10) Stop: 05/16/17 03:10 Last Admin: 11/17/16 23:20 Dose: 2 mg Naloxone HCl (Narcan) 0.4 mg IVP Q2MIN PRN PRN Reason: Opioid Reversal Stop: 05/16/17 03:10 Nitroglycerin (Nitroglycerin) 0.4 mg SL AD PRN PRN Reason: Chest Pain Stop: 05/16/17 03:05 Omeprazole (Prilosec) 20 mg PO DAILY@0630 DAY PRN Reason: Protocol Stop: 05/16/17 06:31 Last Admin: 11/18/16 05:01 Dose: Not Given Ondansetron HCl (Zofran) 4 mg IVP Q8HR PRN PRN Reason: Nausea And Vomiting Stop: 05/16/17 03:10 Oxycodone HCl (Roxicodone) 5 mg PO Q4HR PRN PRN Reason: Moderate Pain (4-6) Stop: 05/16/17 04:01 Last Admin: 11/17/16 13:36 Dose: 5 mg Simvastatin (Zocor) 40 mg PO HS [facility] Stop: 05/16/17 21:01 Last Admin: 11/14/16 20:39 Dose: 40 mg Tamsulosin HCl (Flomax) 0.8 mg PO DAILY DAY PRN Reason: Protocol Stop: 05/16/17 09:01 Last Admin: 11/18/16 09:04 Dose: 0.8 mg - EKG Interpretation EKG results cardiology: other (12 hour tele AVG HR 103, PAF noted, currently in SR.) - VTE Documentation of Mechanical Device: Intermittent pneumatic compression device Consult Discharge Plan - Plan Referrals: Jamie Santos MD [Primary Care Provider] - Kian Javier DO [Partnered Physician] - 12/04/16 10:40 am <Nilesh Ku - Last Filed: 11/18/16 12:26> Date of Encounter: 11/18/16 Assessment and Plan Discussion w patient/family: The assessment and plan as outlined above was discussed with the patient and/or family members who expressed understanding and agreement. All questions were answered. Thank you for involving us in the care of your patient. Please call with any questions. Objective Vital Signs, Last 4 Hours Temp Pulse Resp BP Pulse Ox 11/18/16 11:24 98.6 F 73 18 104/54 93 L 11/18/16 09:45 84 Results 11/18/16 01:20 11/18/16 01:20 Lab Results 11/18/16 11/18/16 11/18/16 01:20 01:20 01:20 WBC 6.7 D Hgb 11.2 L D Hct 34.7 L Plt Count 165 Sodium 137 Potassium 3.7 Chloride 99 Carbon Dioxide 25 BUN 13 Creatinine 0.80 Glucose 126 H Calcium 8.6 Magnesium 1.5 L Troponin I 0.99 H* 11/18/16 05:37 WBC Hgb Hct Plt Count Sodium Potassium Chloride Carbon Dioxide BUN Creatinine Glucose Calcium Magnesium Troponin I 1.10 H* Attestation: My signature below is to certify that this patient is under my care and that I, or nurse practitioner, or a physician's process assistant working with me, has a face-to -face encounter with this patient. Fantasma seen and examined - agree with plan Patient is not a candidate for invasive eval based on my assessment today. Medical management only for elevated Trop. Will defer other issues to others. Please call if other issues arise. Will sign off.
[2016-11-18] MEDS: Furosemide 20 MG TABLET PO SCH (11:33)
--- NOTE | 2016-11-18 11:47 | Internal Med Progress Note ---
Date of Encounter: 11/18/16 Time of Encounter: 10:00 - Assessment and plan (1) HCAP (healthcare-associated pneumonia) Current Visit: Yes Status: Acute Assessment and plan: Patient has pneumonia, He is [facility], treat patient health care associated pneumonia. Continue Vanco, azithromycin, and aztreonam. CT chest done, suggest RLL pneumonia. Blood culture shows G+ coccus, waiting for final report and repeat culture. Patient is at high risk because of vancomycin, which need close monitoring (2) Atrial fibrillation with rapid ventricular response Current Visit: Yes Status: Acute Assessment and plan: Patient has history of A Fib. Now converted to sinus rhythm. We will keep the patient on beta jeremiah. Titrate up as BP tolerate. (3) Cellulitis and abscess of foot Current Visit: Yes Status: Acute Assessment and plan: Patient is on antibiotics. We will continue wound care. podiatry consult appreciated. (4) Hypotension Current Visit: Yes Status: Acute Assessment and plan: Etiology is undetermined. Possibly due to hypovolemic status. Improved after IV fluid in ER. Off dopamine drip now. Will continue closely monitor BP level. BP is still at lower side now. Qualifiers: Hypotension type: other hypotension type Qualified Code(s): I95.89 - Other hypotension (5) Urinary (tract) obstruction Current Visit: Yes Status: Acute Assessment and plan: Patient has a history of BPH and Following urology as outpatient. Suprapubic catheter was placed by urology. (6) Dementia in Alzheimer's disease Current Visit: Yes Status: Chronic Assessment and plan: We will continue home medications (7) DVT prophylaxis Current Visit: Yes Status: Acute Assessment and plan: EPCD (8) Elevated troponin Current Visit: Yes Status: Acute Assessment and plan: Cardiology consult appreciated. Demand ischemia vs NTEMI. No further procedure recommended considering general status. Continue ASA, BB, and statin. - Time Spent With Patient Greater than 35 minutes - Subjective Interval history: Patient is a 81-year-old male admitted for hypotension and pneumonia. His past medical history is significant for dementia, CAD, hyperlipidemia, hypertension, PAD, A. fib, TIA, BPH. Patient was seen and examined, Pt had tachycardia and mild desaturation yesterday evening, HR 120 on sinus rhytm, his lung is wet and lasix 20mg iv was given. His SOB has improved. However, this morning he developed A Fib with RVR again with HR 140-160. Pt is not tolerate cardizem b/o hypotension. Digoxin 0.25mg iv x 2 was given by pressure steamer tender. When I saw him in AM his heart rate is 75 and change to sinus rhythm. He c/o wants to "urinate". Suprapubic catheter seem blocked by clots. Urology was informed and plan to change the catheter. Pt take lasix po 20mg daily at home, which has been hold because his BP at 80s. His saturation is 92% on 3L NC now, in no acute respiratory distress. Elevated troponin consulted cardiology, no further procedure recommended considering pt' s poor general condition and code status. Will continue current abx therapy and supportive therapy. - Constitutional Vitals: Temp Pulse Resp BP Pulse Ox 98.6 F 73 18 104/54 93 L 11/18/16 11:24 11/18/16 11:24 11/18/16 11:24 11/18/16 11:24 11/18/16 11:24 General appearance: Present: cachectic, cooperative, A&O X 1, obese, severe distress. Absent: answers questions appropriately - Head Head exam: Present: atraumatic, normocephalic - Eye Eye exam: Present: PERRL, conjuntiva pink, sclera anicteric Pupils: Present: PERRL - Neck Neck exam general surgery: Present: supple, trachea midline. Absent: lymphadenopathy - Respiratory Respiratory exam: Present: CTAB, rales (Mild rales on right lung.). Absent: accessory muscle use, rhonchi, wheezes - Cardiovascular Cardiovascular exam: Present: RRR, +S1, +S2. Absent: diastolic murmur, gallop, rubs, systolic murmur - GI/Abdominal GI/Abdominal exam: Present: normal bowel sounds, soft, no peritoneal signs. Absent: distended, tenderness - Extremities Exam Extremities exam: Present: warm, radial pulses palpable and symetrical. Absent : calf tenderness, cyanotic, pedal edema - Neurological Exam Neurological exam: Present: CN II-XII intact, no focal deficits. Absent: pronater drift, facial droop, speech deficit - Skin Skin exam: Present: dry, intact Internal Medicine: Result - Labs CBC & Chem 7: 11/18/16 01:20 11/18/16 01:20 Labs: Short CBC 11/18/16 Range/Units 01:20 WBC 6.7 D (4.3-11.1) K/mcL Hgb 11.2 L D (12.9-16.9) g/dL Hct 34.7 L (37.5-50.1) % Plt Count 165 (140-400) K/mcL Neutrophils # 5.1 (1.6-8.9) K/mcL BMP 11/18/16 01:20 Sodium 137 Potassium 3.7 Chloride 99 Carbon Dioxide 25 BUN 13 Creatinine 0.80 Glucose 126 H Calcium 8.6 Cardiac Enzymes 11/18/16 11/18/16 Range/Units 01:20 05:37 Troponin I 0.99 H* 1.10 H* (0-0.03) ng/mL - Impressions Impressions [facility]UB X-Ray 11/18/16 06:47 IMPRESSION: Contrast opacifies the urinary bladder. D/ / 11/18/2016 07:48:41 Ju Sandoval MD / renee Interpreting Provider: Ju Sandoval MD - VTE Documentation of Mechanical Device: Intermittent pneumatic compression device Consult Discharge Plan - Plan Referrals: Jamie Santos MD [Primary Care Provider] - Kian Javier DO [Partnered Physician] - 12/04/16 10:40 am
[2016-11-18] MEDS: *HR* OxyCODONE Immed Rel 5 MG TABLET PO PRN (14:25)
[2016-11-18] MEDS ORDERED: Amiodarone Premix 150 MG/100 ML BAG IVPB ONE (17:03)
[2016-11-18] MEDS ORDERED: 0.9 % Sodium Chloride 1,000 ML ONE ×2 (18:54→22:41)
[2016-11-18] MEDS ORDERED: 0.9 % Sodium Chloride 250 ML IVC ONE (18:54)
--- NOTE | 2016-11-18 19:11 | Event Note ---
Date of Encounter: 11/18/16 Time of Encounter: 17:00 Pt has persistant hypotension with SBP 60-80s, tried Dopamine drip but pt developped A Fib RVR again. Dopamine drip discontinued. Digoxin .25mg iv once was given. Hr slightly slow down but still high at 120s. BP is still low. Pt may need levophed to maintain BP and avoid tachycardia. IVF 250 bolus was given. Plan to transfer pt to ICU. Central line was placed after obtaining informed consent. Right IJ was chosen. Puncture under US guide, good blood return, catheter placed uneventfully. Fixed at 14 cm. CXR ordered.
[2016-11-18] MEDS ORDERED: Norepinephrine 4 MG in D5% in Water 250 ML IVC SCH (20:30)
[2016-11-18] MEDS: *HR* Metoprolol 5 MG/5 ML VIAL IVP PRN (21:25)
[2016-11-18] MEDS: Vancomycin 1,500 MG in D5% in Water 250 ML IVPB SCH (21:26)
[2016-11-18] MEDS: *HR* LORazepam 1 MG TABLET PO SCH (21:53)
[2016-11-19] MEDS: Azithromycin 500 MG in D5% in Water 250 ML IVPB SCH (04:03)
[2016-11-19] MEDS: Aztreonam 2,000 MG in D5% in Water (Mini-Bag+) 100 ML IVPB SCH ×3 (04:04→15:42)
[2016-11-19 04:39] LABS: Basophils % 0.2 %; Eosinophils # 0.4 K/mcL (0.0-0.6); Eosinophils % 6.6 %; Hematocrit 27.4 % (37.5-50.1); Immature Granulocytes % 0.3 % (0-4); Immature Platelets 2.2 % (1.1-6.1); Lymphocytes # 1.2 K/mcL (0.6-4.6); Lymphocytes % 19.6 %; Mean Corpuscular HGB Conc 32.5 g/dL (31.6-35.5); Mean Corpuscular Hemoglobin 29.8 pg (28.0-33.3); Mean Corpuscular Volume 91.6 fL (83.0-100.0); Mean Platelet Volume 9.7 fL (9.4-12.4); Monocytes # 0.4 K/mcL (0.0-1.3); Monocytes % 6.9 %; Neutrophils # 4.1 K/mcL (1.6-8.9); Platelet Count 181 K/mcL (140-400); Red Blood Count 2.99 M/mcL (4.19-5.50); Red Cell Distribution Width 14.3 % (11.5-14.5); Segmented Neutrophils % 66.4 %
[2016-11-19] MEDS: Ipratropium/Albuterol Neb 3 ML IH SCH ×4 (04:49→23:58)
[2016-11-19 04:50] LABS: Hemoglobin 8.9 g/dL (12.9-16.9)
[2016-11-19 04:52] LABS: BUN/Creatinine Ratio 25 (6-26); Blood Urea Nitrogen 19 mg/dL (8-26); Calcium 7.9 mg/dL (8.6-10.8); Carbon Dioxide 24 mEq/L (19-29); Chloride 102 mEq/L (98-109); Glucose 87 mg/dL (70-99); Magnesium 1.7 mg/dL (1.6-2.6); Osmolality,Calculated 280 (280-300); Potassium 3.7 mEq/L (3.5-4.5); Sodium 134 mEq/L (136-145); eGFR For African Americans > 60 (> 60); eGFR For Non-African Americans > 60 (> 60)
[2016-11-19 05:19] LABS: Platelet Estimate Normal (Normal); Reactive Lymphocytes Present (Not Present)
--- NOTE | 2016-11-19 07:05 | Pulmonology Consult Note ---
Date of Encounter: 11/19/16 Time of Encounter: 07:05 Past Med Surg Social Fam HX - Past Medical History Medical history: arthritis, atrial fibrillation, coronary artery disease, dementia, GERD, hyperlipidemia, hypertension, myocardial infarction, osteoporosis, peripheral artery disease (Carotid artery atherosclerosis. Moderate 40-59% stenosis of the right ICA versus nonstenotic plaque of left ICA. ), renal disease (Urinary retention. BPH/prostatism. Recurrent neurogenic bladder. History of ureteral stenosis.), TIA (History of TIA with transient expressive aphasia. History of TIA with gait disturbance.), valvular heart disease Psychiatric history: anxiety, other (dementia) - Past Surgical History Surgical History: angioplasty/stent, appendectomy, cataract, herniorrhaphy, orthopedic, other (Shoulder surgery. Cervical spine surgery.), sinus surgery ( Tonsillectomy- adenoidectomy), other (Prostate surgery.) - Social History Smoking Status: Former smoker Smokeless Tobacco Status: No Alcohol use: none Drug use: none Medications and Allergies Atorvastatin [Lipitor] 40 mg PO HS 08/28/16 [History] Gabapentin [Neurontin] 300 mg PO TID 08/28/16 [History] Metoprolol XL (24 HR) Succ [Toprol XL] 25 mg PO DAILY 08/28/16 [History] Tamsulosin [Flomax] 0.8 mg PO DAILY 08/28/16 [History] Aspirin 81 mg PO DAILY 10/10/16 [History] Betamethasone Gloria 0.1% Crm [Valisone 0.1%] 1 appl TP BID 10/10/16 [History] Furosemide [Lasix] 20 mg PO DAILY 10/10/16 [History] LORazepam [Ativan] 1 mg PO HS 10/10/16 [History] Nitroglycerin [Nitrostat] 0.4 mg SL AD PRN 10/10/16 [History] Valsartan/Hydrochlorothiazide [Diovan Hct 320-12.5 mg Tab] 1 tab PO DAILY [History] Haloperidol [Haldol] 5 mg PO TID 11/14/16 [History] Allergies ciprofloxacin [From Cipro] Allergy (Verified 11/14/16 08:15) Hives Penicillins [PCN] Allergy (Verified 11/14/16 08:15) Hives Sulfa (Sulfonamide Antibiotics) Allergy (Verified 11/14/16 08:15) Hives All Systems: A 10-system review of systems was performed and is negative for pertinent findings except as documented above in the HPI. Physical Examination Vital Signs: Vital Signs, Last 4 Hours Temp Pulse Resp BP Pulse Ox 11/19/16 06:00 56 15 92/54 90 L 11/19/16 05:00 99.2 F 88 19 112/66 90 L 11/19/16 04:54 18 90 L 11/19/16 04:17 99.2 F 11/19/16 04:00 88 20 97/67 92 L Results - Laboratory Findings CBC and BMP: 11/19/16 04:30 11/19/16 04:30 Abnormal lab findings: Abnormal lab results RBC 2.99 M/mcL (4.19-5.50) L 11/19/16 04:30 Hgb 8.9 g/dL (12.9-16.9) L D 11/19/16 04:30 Hct 27.4 % (37.5-50.1) L 11/19/16 04:30 Reactive Lymphocytes Present (Not Present) A 11/19/16 04:30 VBG pH 7.29 pH Units (7.32-7.42) L 11/14/16 04:52 VBG pCO2 67 mmHg (41-51) H 11/14/16 04:52 VBG pO2 44 mmHg (25-40) H 11/14/16 04:52 VBG HCO3 32.2 mEq/L (21-27) H 11/14/16 04:52 Sodium 134 mEq/L (136-145) L 11/19/16 04:30 POC Glucose 97 (58-89) H 11/19/16 04:15 Calcium 7.9 mg/dL (8.6-10.8) L 11/19/16 04:30 Ionized Calcium 1.09 mmol/L (1.15-1.35) L 11/14/16 04:52 Troponin I 0.58 ng/mL (0-0.03) H* 11/18/16 12:20 C-Reactive Protein 135 mg/L (Less than 5) H 11/14/16 04:52 Serum Total Protein 5.5 g/dL (6.0-8.3) L 11/13/16 22:49 Albumin 2.8 g/dL (3.5-5.0) L 11/13/16 22:49 Albumin/Globulin Ratio 1.0 (1.1-2.2) L 11/13/16 22:49 Prealbumin 11.0 mg/dL (18.0-45.0) L 11/14/16 04:52 HDL Cholesterol 25 mg/dL (40-59) L 11/14/16 04:52 Free T3 1.47 pg/mL (1.71-3.71) L 11/14/16 04:52 Ur Specimen Adequacy See below A 11/14/16 13:13 Urine Color Red (Yellow) A 11/14/16 13:13 Urine Clarity Cloudy (Clear) A 11/14/16 13:13 Urine Protein >=300 mg/dL (Neg-Trace) H 11/14/16 13:13 Urine Ketones Trace mg/dL (Negative) H 11/14/16 13:13 Urine Blood Large (Negative) H 11/14/16 13:13 Urine Nitrite Positive (Negative) A 11/14/16 13:13 Urine Bilirubin Moderate (Negative) H 11/14/16 13:13 Ur Leukocyte Esterase Small (Negative) H 11/14/16 13:13 Staphylococcus sp PCR DETECTED (Not Detect) A 11/13/16 23:38 - Clinical Findings Intake & Output: Intake & Output 11/18/16 11/18/16 11/19/16 15:59 23:59 07:59 Intake Total 100 / 100 110 / 110 500 / 500 Output Total 1100 / 1100 800 / 800 550 / 550 Balance -1000 / -1000 -690 / -690 -50 / -50 Weight 87.22 kg Consult Discharge Plan - Plan Referrals: Jamie Santos MD [Primary Care Provider] - Kian Javier DO [Partnered Physician] - 12/04/16 10:40 am
[2016-11-19] MEDS: Furosemide 20 MG TABLET PO SCH (07:59)
[2016-11-19] MEDS: Metoprolol XL (24 HR) Succ 25 MG TAB.ER.24H PO SCH (08:00)
[2016-11-19] MEDS: Aspirin 81 MG TAB.CHEW PO SCH ×2 (08:07→08:42)
[2016-11-19] MEDS: *HR* OxyCODONE Immed Rel 5 MG TABLET PO PRN (08:07)
[2016-11-19] MEDS: Gabapentin 300 MG CAPSULE PO SCH ×4 (08:08→20:03)
[2016-11-19] MEDS ORDERED: Aminoglycoside Consult 1 EACH MC ONE (08:24)
[2016-11-19] MEDS ORDERED: Haloperidol Lactate 5 MG/ML VIAL IM STA (08:38)
[2016-11-19] MEDS ORDERED: Haloperidol Lactate 5 MG/ML VIAL ONE (08:47)
--- NOTE | 2016-11-19 08:48 | Urology Progress Note ---
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 current cath is draining and irrigated well. will continue current management for now. If patient needs 3 way hematuria cath he would likely need done under anesthesia in OR Progress Note Narrative: increased confusion. transfer to ICU Objective Initial Vital Signs Temp Pulse Resp BP Pulse Ox 97.8 F 53 16 79/50 94 L 11/13/16 22:41 11/13/16 22:41 11/13/16 22:41 11/13/16 22:41 11/13/16 22:41 - General physical appearance Present: no distress - Abdomen Present: soft. Absent: distended - Additional Exam SPT site dry. no active bleeding or infection. no drainage urine still transparent red. irrigated with 200 cc NS. no clots. irrigated easily. - Labs 11/19/16 04:30 11/19/16 04:30 Diabetes panel 11/19/16 Range/Units 04:30 Sodium 134 L (136-145) mEq/L Potassium 3.7 (3.5-4.5) mEq/L Chloride 102 (98-109) mEq/L Carbon Dioxide 24 (19-29) mEq/L BUN 19 (8-26) mg/dL Creatinine 0.77 (0.72-1.25) mg/dL Glucose 87 (70-99) mg/dL Calcium 7.9 L (8.6-10.8) mg/dL Calcium panel 11/19/16 Range/Units 04:30 Calcium 7.9 L (8.6-10.8) mg/dL Pituitary panel 11/19/16 Range/Units 04:30 Sodium 134 L (136-145) mEq/L Potassium 3.7 (3.5-4.5) mEq/L Chloride 102 (98-109) mEq/L Carbon Dioxide 24 (19-29) mEq/L BUN 19 (8-26) mg/dL Creatinine 0.77 (0.72-1.25) mg/dL Glucose 87 (70-99) mg/dL Calcium 7.9 L (8.6-10.8) mg/dL Adrenal panel 11/19/16 Range/Units 04:30 Sodium 134 L (136-145) mEq/L Potassium 3.7 (3.5-4.5) mEq/L Chloride 102 (98-109) mEq/L Carbon Dioxide 24 (19-29) mEq/L BUN 19 (8-26) mg/dL Creatinine 0.77 (0.72-1.25) mg/dL Glucose 87 (70-99) mg/dL Calcium 7.9 L (8.6-10.8) mg/dL - VTE Documentation of Mechanical Device: Intermittent pneumatic compression device Consult Discharge Plan - Plan Referrals: Jamie Santos MD [Primary Care Provider] - Kian Javier DO [Partnered Physician] - 12/04/16 10:40 am
[2016-11-19 10:47] LABS: Adenovirus Not Detected (Not Detect); Bordetella Pertussis Not Detected (Not Detect); Chlamydophila pneumoniae Not Detected (Not Detect); Coronavirus 229E Not Detected (Not Detect); Coronavirus HKU1 Not Detected (Not Detect); Coronavirus NL63 Not Detected (Not Detect); Coronavirus OC43 Not Detected (Not Detect); Human Metapneumovirus ***DETECTED*** (Not Detect); Human Rhinovirus/Enterovirus Not Detected (Not Detect); Influenza A Subtype 2009 H1 Not Detected (Not Detect); Influenza A Untypeable Not Detected (Not Detect); Influenza B Not Detected (Not Detect); Mycoplasma pneumoniae Not Detected (Not Detect); Parainfluenza Virus 1 Not Detected (Not Detect); Parainfluenza Virus 2 Not Detected (Not Detect); Parainfluenza Virus 3 Not Detected (Not Detect); Parainfluenza Virus 4 Not Detected (Not Detect); Respiratory Syncytial Virus Not Detected (Not Detect)
--- NOTE | 2016-11-19 14:15 | Electrocardiograph Report ---
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
[2016-11-19] MEDS ORDERED: *HR* Metoprolol 5 MG/5 ML VIAL IVP ONE ×2 (14:32→17:13)
--- NOTE | 2016-11-19 14:40 | Electrocardiograph Report ---
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
--- NOTE | 2016-11-19 15:27 | Pulmonology Consult Note ---
Date of Encounter: 11/19/16 Time of Encounter: 15:25 Assessment and Plan (1) Heart failure with preserved ejection fraction Current Visit: Yes Status: Acute Diastolic dysfunction on echocardiogram with moderately dilated left atrium appears on balance modestly volume overloaded would continue gentle diuresis for goal -500 mL to 1 L daily renal function while diuresing (2) Hypotension Current Visit: Yes Status: Acute This is multifactorial but I believe that it is not related to sepsis but more related to runs of atrial fibrillation with rapid ventricular response continue nedra blocking agent (beta jeremiah) this is complicated by underlying moderate aortic stenosis Qualifiers: Hypotension type: other hypotension type Qualified Code(s): I95.89 - Other hypotension (3) Acute respiratory failure with hypoxia Current Visit: Yes Status: Acute Secondary to pulmonary edema likely coupled with acute viral pneumonia (4) Atrial fibrillation with rapid ventricular response Current Visit: Yes Status: Acute Titrate beta jeremiah with underlying aortic stenosis would this rhythm is extremely deleterious along with underlying heart failure with preserved ejection fraction (5) Hypotension Current Visit: Yes Status: Acute Multifactorial as outlined above Qualifiers: Hypotension type: other hypotension type Qualified Code(s): I95.89 - Other hypotension (6) Pneumonia Current Visit: Yes Status: Acute Secondary to metapneumovirus stop ABx for PNA. Qualifiers: Lung location: unspecified part of lung Qualified Code(s): J18.9 - Pneumonia, unspecified organism (7) Dementia in Alzheimer's disease Current Visit: Yes Status: Chronic Would recommend palliative care involvement if not already done History of Present Illness Consult date: 11/19/16 Requesting physician: Marisela Albrecht Reason for consult: pneumonia Chief complaint: Shortness of breath History of present illness: This is an 81-year-old gentleman with advanced Alzheimer's dementia who presents from nursing facility for hypotension and concern for pneumonia. He has been treated for several days for pneumonia but has had intermittent periods hypotension despite antimicrobials. He also has a history of atrial fibrillation on long-term anticoagulation with recent echo suggestive of diastolic dysfunction along with moderate aortic stenosis. Patient was transferred from stepdown unit last night for hypotension however blood pressure has improved with fluid bolus. For hypertension on the stepdown unit he had been given small boluses and at one point was on dopamine but went into A. fib with RVR. He does not have an elevated white count and has not been febrile He is unable to participate in history gathering or conversation because of his advanced dementia and is deemed a poor historian Past Med Surg Social Fam HX - Past Medical History Medical history: arthritis, atrial fibrillation, coronary artery disease, dementia, GERD, hyperlipidemia, hypertension, myocardial infarction, osteoporosis, peripheral artery disease (Carotid artery atherosclerosis. Moderate 40-59% stenosis of the right ICA versus nonstenotic plaque of left ICA. ), renal disease (Urinary retention. BPH/prostatism. Recurrent neurogenic bladder. History of ureteral stenosis.), TIA (History of TIA with transient expressive aphasia. History of TIA with gait disturbance.), valvular heart disease Psychiatric history: anxiety, other (dementia) - Past Surgical History Surgical History: angioplasty/stent, appendectomy, cataract, herniorrhaphy, orthopedic, other (Shoulder surgery. Cervical spine surgery.), sinus surgery ( Tonsillectomy- adenoidectomy), other (Prostate surgery.) - Social History Smoking Status: Former smoker Smokeless Tobacco Status: No Alcohol use: none Drug use: none Medications and Allergies Atorvastatin [Lipitor] 40 mg PO HS 08/28/16 [History] Gabapentin [Neurontin] 300 mg PO TID 08/28/16 [History] Metoprolol XL (24 HR) Succ [Toprol XL] 25 mg PO DAILY 08/28/16 [History] Tamsulosin [Flomax] 0.8 mg PO DAILY 08/28/16 [History] Aspirin 81 mg PO DAILY 10/10/16 [History] Betamethasone Gloria 0.1% Crm [Valisone 0.1%] 1 appl TP BID 10/10/16 [History] Furosemide [Lasix] 20 mg PO DAILY 10/10/16 [History] LORazepam [Ativan] 1 mg PO HS 10/10/16 [History] Nitroglycerin [Nitrostat] 0.4 mg SL AD PRN 10/10/16 [History] Valsartan/Hydrochlorothiazide [Diovan Hct 320-12.5 mg Tab] 1 tab PO DAILY [History] Haloperidol [Haldol] 5 mg PO TID 11/14/16 [History] Allergies ciprofloxacin [From Cipro] Allergy (Verified 11/14/16 08:15) Hives Penicillins [PCN] Allergy (Verified 11/14/16 08:15) Hives Sulfa (Sulfonamide Antibiotics) Allergy (Verified 11/14/16 08:15) Hives ROS unobtainable: due to mental status All Systems: A 10-system review of systems was performed and is negative for pertinent findings except as documented above in the HPI. Physical Examination Vital Signs: Vital Signs, Last 4 Hours Temp Pulse Resp BP Pulse Ox 11/19/16 15:00 98.3 F 92 18 117/77 96 11/19/16 14:20 118 11/19/16 14:00 118 22 82/67 92 L 11/19/16 13:00 116 20 107/88 90 L 11/19/16 12:00 84 18 112/69 94 L General appearance: no acute distress ENT: oropharynx moist Neck: supple Effort: normal Auscultation: bilateral: diminished breath sounds, rales Cardiovascular: regular rate and rhythm, irregular rhythm Gastrointestinal: normoactive bowel sounds Extremities: edema non-focal exam, pupils equal and round, other (Patient knows his name cannot answer basic questions consistently) mood appropriate, other (Suspicious at times) Results - Laboratory Findings CBC and BMP: 11/19/16 04:30 11/19/16 04:30 Abnormal lab findings: Abnormal lab results RBC 2.99 M/mcL (4.19-5.50) L 11/19/16 04:30 Hgb 8.9 g/dL (12.9-16.9) L D 11/19/16 04:30 Hct 27.4 % (37.5-50.1) L 11/19/16 04:30 Reactive Lymphocytes Present (Not Present) A 11/19/16 04:30 VBG pH 7.29 pH Units (7.32-7.42) L 11/14/16 04:52 VBG pCO2 67 mmHg (41-51) H 11/14/16 04:52 VBG pO2 44 mmHg (25-40) H 11/14/16 04:52 VBG HCO3 32.2 mEq/L (21-27) H 11/14/16 04:52 Sodium 134 mEq/L (136-145) L 11/19/16 04:30 POC Glucose 97 (58-89) H 11/19/16 04:15 Calcium 7.9 mg/dL (8.6-10.8) L 11/19/16 04:30 Ionized Calcium 1.09 mmol/L (1.15-1.35) L 11/14/16 04:52 Troponin I 0.58 ng/mL (0-0.03) H* 11/18/16 12:20 C-Reactive Protein 135 mg/L (Less than 5) H 11/14/16 04:52 Serum Total Protein 5.5 g/dL (6.0-8.3) L 11/13/16 22:49 Albumin 2.8 g/dL (3.5-5.0) L 11/13/16 22:49 Albumin/Globulin Ratio 1.0 (1.1-2.2) L 11/13/16 22:49 Prealbumin 11.0 mg/dL (18.0-45.0) L 11/14/16 04:52 HDL Cholesterol 25 mg/dL (40-59) L 11/14/16 04:52 Free T3 1.47 pg/mL (1.71-3.71) L 11/14/16 04:52 Ur Specimen Adequacy See below A 11/14/16 13:13 Urine Color Red (Yellow) A 11/14/16 13:13 Urine Clarity Cloudy (Clear) A 11/14/16 13:13 Urine Protein >=300 mg/dL (Neg-Trace) H 11/14/16 13:13 Urine Ketones Trace mg/dL (Negative) H 11/14/16 13:13 Urine Blood Large (Negative) H 11/14/16 13:13 Urine Nitrite Positive (Negative) A 11/14/16 13:13 Urine Bilirubin Moderate (Negative) H 11/14/16 13:13 Ur Leukocyte Esterase Small (Negative) H 11/14/16 13:13 Human Metapneumovirus DETECTED (Not Detect) A 11/19/16 07:54 Staphylococcus sp PCR DETECTED (Not Detect) A 11/13/16 23:38 - Clinical Findings Intake & Output: Intake & Output 11/18/16 11/19/16 11/19/16 23:59 07:59 15:59 Intake Total 110 / 110 600 / 600 350 / 350 Output Total 800 / 800 550 / 550 750 / 750 Balance -690 / -690 50 / 50 -400 / -400 Weight 87.22 kg Consult Discharge Plan - Plan Referrals: Jamie Santos MD [Primary Care Provider] - Kian Javier DO [Partnered Physician] - 12/04/16 10:40 am
--- NOTE | 2016-11-19 18:59 | Internal Med Progress Note ---
Date of Encounter: 11/19/16 Time of Encounter: 09:00 - Assessment and plan (1) HCAP (healthcare-associated pneumonia) Current Visit: Yes Status: Acute Assessment and plan: Patient has pneumonia, He is from correction, treat patient health care associated pneumonia. Continue Vanco, azithromycin, and aztreonam. CT chest done, suggest RLL pneumonia. Blood culture shows Staph Epi, possibly contamination. We will follow repeated blood culture. Patient is at high risk because of vancomycin, which need close monitoring (2) Atrial fibrillation with rapid ventricular response Current Visit: Yes Status: Acute Assessment and plan: Patient has history of A Fib. Now converted to sinus rhythm. We will keep the patient on beta jeremiah. Titrate up as BP tolerate. (3) Cellulitis and abscess of foot Current Visit: Yes Status: Acute Assessment and plan: Patient is on antibiotics. We will continue wound care. podiatry consult appreciated. (4) Hypotension Current Visit: Yes Status: Acute Assessment and plan: Etiology is undetermined. Possibly due to hypovolemic status. Improved after IV fluid in ER. Off dopamine drip now. Will continue closely monitor BP level. BP is still at lower side now. Qualifiers: Hypotension type: other hypotension type Qualified Code(s): I95.89 - Other hypotension (5) Urinary (tract) obstruction Current Visit: Yes Status: Acute Assessment and plan: Patient has a history of BPH and Following urology as outpatient. Suprapubic catheter was placed by urology. Patient still has some hematuria. closely follow-up H&H (6) Dementia in Alzheimer's disease Current Visit: Yes Status: Chronic Assessment and plan: We will continue home medications (7) DVT prophylaxis Current Visit: Yes Status: Acute Assessment and plan: EPCD (8) Elevated troponin Current Visit: Yes Status: Acute Assessment and plan: Cardiology consult appreciated. Demand ischemia vs NTEMI. No further procedure recommended considering general status. Continue ASA, BB, and statin. (9) Goals of care, counseling/discussion Current Visit: Yes Status: Acute Assessment and plan: Family expressed that they wanted comfort care. Family does not want intubation. CODE STATUS was changed to DNR/DNI. Palliative care consult (10) Carotid stenosis Current Visit: Yes Status: Acute Assessment and plan: Duplex shows right ICA 60-79% stenosis. Patient is already demented and obviously not a surgical candidate. Qualifiers: Laterality: right Qualified Code(s): I65.21 - Occlusion and stenosis of right carotid artery - Time Spent With Patient 25 - 35 minutes - Subjective Interval history: Patient is a 81-year-old male admitted for hypotension and pneumonia. His past medical history is significant for dementia, CAD, hyperlipidemia, hypertension, PAD, A. fib, TIA, BPH. Patient was seen and examined, pt is awake, alert. Demented AAO x1. HR changed between Sinus and A Fib. BP is a well maintained today. Pulmonology consult appreciated and the recommendation will be followed. Family wanted palliative care consult, palliative consult asked. Will continue antibiotic, beta jeremiah , supportive and comfort management. - Constitutional Vitals: Temp Pulse Resp BP Pulse Ox 98.3 F 91 20 111/69 92 L 11/19/16 15:00 11/19/16 18:00 11/19/16 18:00 11/19/16 18:00 11/19/16 18:00 General appearance: Present: cachectic, cooperative, A&O X 1, obese, severe distress. Absent: answers questions appropriately - Head Head exam: Present: atraumatic, normocephalic - Eye Eye exam: Present: PERRL, conjuntiva pink, sclera anicteric Pupils: Present: PERRL - Neck Neck exam general surgery: Present: supple, trachea midline. Absent: lymphadenopathy - Respiratory Respiratory exam: Present: CTAB. Absent: accessory muscle use, rales, rhonchi, wheezes - Cardiovascular Cardiovascular exam: Present: irregular rhythm, +S1, +S2. Absent: diastolic murmur, gallop, rubs, systolic murmur - GI/Abdominal GI/Abdominal exam: Present: normal bowel sounds, soft, no peritoneal signs. Absent: distended, tenderness - Extremities Exam Extremities exam: Present: warm, radial pulses palpable and symetrical. Absent : calf tenderness, cyanotic, pedal edema - Neurological Exam Neurological exam: Present: CN II-XII intact, oriented X3, no focal deficits. Absent: pronater drift, facial droop, speech deficit - Skin Skin exam: Present: dry, intact Internal Medicine: Result - Labs CBC & Chem 7: 11/19/16 04:30 11/19/16 04:30 Labs: Short CBC 11/19/16 Range/Units 04:30 WBC 6.2 (4.3-11.1) K/mcL Hgb 8.9 L D (12.9-16.9) g/dL Hct 27.4 L (37.5-50.1) % Plt Count 181 (140-400) K/mcL Neutrophils # 4.1 (1.6-8.9) K/mcL BMP 11/19/16 04:30 Sodium 134 L Potassium 3.7 Chloride 102 Carbon Dioxide 24 BUN 19 Creatinine 0.77 Glucose 87 Calcium 7.9 L - Impressions Impressions Chest X-Ray 11/18/16 18:43 IMPRESSION: 1. Right transjugular central venous catheter terminating in the superior vena cava. 2. Intervally increased right basilar airspace opacities. Small pleural effusions. D/ / Kian Mack MD / Kian Mack MD Interpreting Provider: Kian Mack MD - VTE Documentation of Mechanical Device: Intermittent pneumatic compression device Consult Discharge Plan - Plan Referrals: Jamie Santos MD [Primary Care Provider] - Kian Javier DO [Partnered Physician] - 12/04/16 10:40 am
[2016-11-19] MEDS: *HR* LORazepam 1 MG TABLET PO SCH (20:03)
[2016-11-19] MEDS: Vancomycin 1,500 MG in D5% in Water 250 ML IVPB SCH (20:03)
[2016-11-20] MEDS: Aztreonam 2,000 MG in D5% in Water (Mini-Bag+) 100 ML IVPB SCH ×2 (00:28→08:07)
[2016-11-20] MEDS: Azithromycin 500 MG in D5% in Water 250 ML IVPB SCH (04:29)
[2016-11-20 04:48] LABS: Basophils % 0.2 %; Eosinophils # 0.5 K/mcL (0.0-0.6); Eosinophils % 8.7 %; Hematocrit 22.7 % (37.5-50.1); Hemoglobin 7.6 g/dL (12.9-16.9); Immature Granulocytes % 0.5 % (0-4); Lymphocytes # 1.5 K/mcL (0.6-4.6); Mean Corpuscular HGB Conc 33.5 g/dL (31.6-35.5); Mean Corpuscular Hemoglobin 30.4 pg (28.0-33.3); Mean Corpuscular Volume 90.8 fL (83.0-100.0); Mean Platelet Volume 9.4 fL (9.4-12.4); Monocytes # 0.4 K/mcL (0.0-1.3); Neutrophils # 3.3 K/mcL (1.6-8.9); Platelet Count 174 K/mcL (140-400); Red Cell Distribution Width 14.3 % (11.5-14.5); Segmented Neutrophils % 57.6 %
[2016-11-20 05:03] LABS: BUN/Creatinine Ratio 25 (6-26); Blood Urea Nitrogen 17 mg/dL (8-26); Calcium 7.9 mg/dL (8.6-10.8); Carbon Dioxide 25 mEq/L (19-29); Chloride 104 mEq/L (98-109); Glucose 86 mg/dL (70-99); Magnesium 1.7 mg/dL (1.6-2.6); Osmolality,Calculated 285 (280-300); Potassium 3.5 mEq/L (3.5-4.5); Sodium 137 mEq/L (136-145); eGFR For African Americans > 60 (> 60); eGFR For Non-African Americans > 60 (> 60)
[2016-11-20 05:19] LABS: Platelet Estimate Normal (Normal)
[2016-11-20] MEDS: Ipratropium/Albuterol Neb 3 ML IH SCH ×4 (06:18→22:32)
--- NOTE | 2016-11-20 07:53 | Urology Progress Note ---
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 the clots today are new compared to yesterday and he likely has active bleeding. I was unable to place 3 way cath on sunday (bc SPT). pt unlikely candidate for OR with recent cardiac issues. will discuss with family today. consider sedation at bedside this afternoon and place urethral cath to start CBI. agree with palliative care consult before transfusion. Progress Note Narrative: remains confused. cath without clot retention overnight but continued hematuria Objective Initial Vital Signs Temp Pulse Resp BP Pulse Ox 97.8 F 53 16 79/50 94 L 11/13/16 22:41 11/13/16 22:41 11/13/16 22:41 11/13/16 22:41 11/13/16 22:41 - Additional Exam SPT site dry. dark hematuria. irrigated ~200cc clots from bladder. - Labs 11/20/16 04:40 11/20/16 04:40 Diabetes panel 11/20/16 Range/Units 04:40 Sodium 137 (136-145) mEq/L Potassium 3.5 (3.5-4.5) mEq/L Chloride 104 (98-109) mEq/L Carbon Dioxide 25 (19-29) mEq/L BUN 17 (8-26) mg/dL Creatinine 0.68 L (0.72-1.25) mg/dL Glucose 86 (70-99) mg/dL Calcium 7.9 L (8.6-10.8) mg/dL Calcium panel 11/20/16 Range/Units 04:40 Calcium 7.9 L (8.6-10.8) mg/dL Pituitary panel 11/20/16 Range/Units 04:40 Sodium 137 (136-145) mEq/L Potassium 3.5 (3.5-4.5) mEq/L Chloride 104 (98-109) mEq/L Carbon Dioxide 25 (19-29) mEq/L BUN 17 (8-26) mg/dL Creatinine 0.68 L (0.72-1.25) mg/dL Glucose 86 (70-99) mg/dL Calcium 7.9 L (8.6-10.8) mg/dL Adrenal panel 11/20/16 Range/Units 04:40 Sodium 137 (136-145) mEq/L Potassium 3.5 (3.5-4.5) mEq/L Chloride 104 (98-109) mEq/L Carbon Dioxide 25 (19-29) mEq/L BUN 17 (8-26) mg/dL Creatinine 0.68 L (0.72-1.25) mg/dL Glucose 86 (70-99) mg/dL Calcium 7.9 L (8.6-10.8) mg/dL - VTE Documentation of Mechanical Device: Intermittent pneumatic compression device Consult Discharge Plan - Plan Referrals: Jamie Santos MD [Primary Care Provider] - Kian Javier DO [Partnered Physician] - 12/04/16 10:40 am
[2016-11-20] MEDS: Aspirin 81 MG TAB.CHEW PO SCH ×2 (08:06→09:12)
[2016-11-20] MEDS: Gabapentin 300 MG CAPSULE PO SCH ×5 (08:06→23:10)
[2016-11-20] MEDS: Metoprolol XL (24 HR) Succ 25 MG TAB.ER.24H PO SCH ×2 (08:07→10:30)
[2016-11-20] MEDS: Furosemide 20 MG TABLET PO SCH ×2 (08:07→09:12)
--- NOTE | 2016-11-20 09:32 | Pulmonology Progress Note ---
<Fito Mcnulty - Last Filed: 11/20/16 13:19> Date of Encounter: 11/20/16 Time of Encounter: 08:00 Assessment and Plan (1) Anemia Current Visit: Yes Status: Acute Patient patient presented to the hospital with hemoglobin of 10.1 over the course of his stay at the hospital it has come down to 7.6. He appears to have gross hematuria of unknown origin specifically. He has a history of prostate surgery and previous difficulty in stopping blood loss the urogenital system, embolization was required to stop the bleeding previously. The catheter was flushed this morning and there were several blood clots obtained. Patient's family spoke with Dr. Fernández and Dr. Vo and would not like a transfusion if it were necessary. Dr. Vo plans to do a procedure tomorrow to place a catheter. We will continue to monitor daily labs NO transfusion Palliative care consulted and family thinking about changing patient CODE STATUS to DNR CC Qualifiers: Anemia type: other cause Other causes of anemia: acute posthemorrhagic Qualified Code(s): D62 - Acute posthemorrhagic anemia (2) Acute respiratory failure with hypoxia Current Visit: Yes Status: Acute Acute respiratory failure likely due to viral etiology with positive human metapneumo virus found on PCR. Initial blood cultures negative, Legionella and strep antigen negative. Patient maintaining adequate oxygen saturations with 4 L nasal cannula. He had previously received 7 days of antibiotics with azithromycin, aztreonam, and vancomycin. We will hold all antibiotics given for course she previously Continue to supplement oxygen as needed, titrate and wean as tolerated Supportive care given likely viral etiology (3) Heart failure with preserved ejection fraction Current Visit: Yes Status: Acute Diastolic dysfunction seen on echocardiogram, slightly fluid overloaded, gentle diuresis was achieved with improvement in breathing. Continue metoprolol Continue aspirin Continue simvastatin Continue to monitor kidney function and urinary output, continue gentle diuresis if urinary output decreases (4) Atrial fibrillation Current Visit: Yes Status: Acute Patient heart rate within normal range with continued use of beta matthew. Continue telemetry to monitor for additional episodes of rapid ventricular response Matthew on when necessary No anticoagulation given patient active bleeding Qualifiers: Atrial fibrillation type: chronic Qualified Code(s): I48.2 - Chronic atrial fibrillation (5) Hypotension Current Visit: Yes Status: Resolved Patient hypotension likely multifactorial, unlikely infectious, possibly due to A. fib with RVR and patient active bleeding. Patient blood pressure is rebounded with better control of heart rate. Last blood pressure reading seen is 176/88. We will continue to monitor patient heart rate to prevent A. fib with RVR and treated with Lopressor if needed Continue monitor blood pressure Family does not want the use of pressor agents or fluid boluses in order to maintain patient blood pressure Qualifiers: Hypotension type: other hypotension type Qualified Code(s): I95.89 - Other hypotension (6) Pneumonia Current Visit: Yes Status: Acute Concern for aspiration pneumonia versus viral etiology of pneumonia seen in chest x-ray. He should maintain adequate oxygen saturation on 4 L nasal cannula. PCR positive for human metapnuemo virus. Patient previously received full course of antibiotics with azithromycin, aspirin, and vancomycin. We will discontinue all antibiotics Continue to support oxygen saturation supplemental oxygen as needed, wean as tolerated Qualifiers: Pneumonia type: due to unspecified organism Laterality: right Lung location: unspecified part of lung Qualified Code(s): J18.9 - Pneumonia, unspecified organism (7) Dementia in Alzheimer's disease Current Visit: Yes Status: Chronic Patient has significant dementia with occasional belligerence and episodes of being uncooperative. Patient refusing by mouth medications earlier We will change patient by mouth Haldol to IV Continue other medications Palliative care consult regarding goals of care (8) DVT prophylaxis Current Visit: Yes Status: Acute GI prophylaxis: Omeprazole DVT prophylaxis: EPCDs Neuro/psych: Severe dementia. Palliative care consulted. Pulmonary: Pneumonia likely due to human metapneumo virus. Some concern for aspiration as well. Patient had full 7 day course of azithromycin, aztreonam, and vancomycin. Now stopped. Currently maintaining adequate oxygen saturation on 4 L nasal cannula. Supplement as necessary wean as tolerated. Cardiovascular: Hypotension, Heart failure with preserved ejection fraction, AICD in place, atrial fibrillation previously in RVR. Pacemaker in place, gentle diuresis achieved, we will continue to monitor. Atrial fibrillation with rapid ventricular response improved with use of beta blockers. Hypotension resolved with improvement in patient's heart rate. Family declines further pressors or fluid boluses to maintain a pressure. Fluids/electrolytes: No concerns at this time, we will continue to monitor GI: No concerns at this time Renal/: Significant hematuria, likely cause of patient's anemia. Previous embolization required to stop patient urogenital bleeding. Urology has been consulted with procedure planned tomorrow. Heme/onc: Anemia that is worsening, likely due to hemorrhage and urogenital tract. Patient family refuses transfusion if necessary. Urology consulted and plan procedure for tomorrow Endo: No consistent this time Integument: Stage II ulcer seen on patient heel and sacral area, clean and dress per protocol CODE STATUS: DNR CCA/DNI Subjective Principal diagnosis: HFpEF, Anemia, Resp. Fail. Interval history: Patient initially reports doing well this morning, but when readdress patient is slightly belligerent and unable/unwilling to participate in conversation. Objective PUL Vital signs: Last Vital Signs Temp 98.1 F 11/20/16 04:00 Pulse 71 11/20/16 06:00 Resp 16 11/20/16 06:00 BP 108/52 11/20/16 06:00 Pulse Ox 93 L 11/20/16 06:00 General appearance: no acute distress, alert, agitated Eyes: nonicteric ENT: oropharynx moist Effort: normal, other (Difficult to auscultate due to patient noncompliance) Auscultation: bilateral: clear Cardiovascular: regular rate and rhythm Gastrointestinal: normoactive bowel sounds, soft, non-tender, non-distended Integumentary: decubitus ulcer (On bilateral heels and sacral, sensation stage 2 ), other (Skin turgor normal, capillary refill 3 seconds) Extremities: no cyanosis, no edema, no clubbing, pink and warm, pulses normal pupils equal and round, other (Patient agitated, likely due to dementia) other (Patient noncompliant, belligerent, and insulting staff) Grossly bloody fluid noted in catheter tubing and bag Results - Laboratory Findings CBC and BMP: 11/20/16 04:40 11/20/16 04:40 Abnormal lab findings: Abnormal lab results RBC 2.50 M/mcL (4.19-5.50) L 11/20/16 04:40 Hgb 7.6 g/dL (12.9-16.9) L 11/20/16 04:40 Hct 22.7 % (37.5-50.1) L 11/20/16 04:40 Reactive Lymphocytes Present (Not Present) A 11/19/16 04:30 VBG pH 7.29 pH Units (7.32-7.42) L 11/14/16 04:52 VBG pCO2 67 mmHg (41-51) H 11/14/16 04:52 VBG pO2 44 mmHg (25-40) H 11/14/16 04:52 VBG HCO3 32.2 mEq/L (21-27) H 11/14/16 04:52 Creatinine 0.68 mg/dL (0.72-1.25) L 11/20/16 04:40 POC Glucose 97 (58-89) H 11/19/16 04:15 Calcium 7.9 mg/dL (8.6-10.8) L 11/20/16 04:40 Ionized Calcium 1.09 mmol/L (1.15-1.35) L 11/14/16 04:52 Troponin I 0.58 ng/mL (0-0.03) H* 11/18/16 12:20 C-Reactive Protein 135 mg/L (Less than 5) H 11/14/16 04:52 Serum Total Protein 5.5 g/dL (6.0-8.3) L 11/13/16 22:49 Albumin 2.8 g/dL (3.5-5.0) L 11/13/16 22:49 Albumin/Globulin Ratio 1.0 (1.1-2.2) L 11/13/16 22:49 Prealbumin 11.0 mg/dL (18.0-45.0) L 11/14/16 04:52 HDL Cholesterol 25 mg/dL (40-59) L 11/14/16 04:52 Free T3 1.47 pg/mL (1.71-3.71) L 11/14/16 04:52 Ur Specimen Adequacy See below A 11/14/16 13:13 Urine Color Red (Yellow) A 11/14/16 13:13 Urine Clarity Cloudy (Clear) A 11/14/16 13:13 Urine Protein >=300 mg/dL (Neg-Trace) H 11/14/16 13:13 Urine Ketones Trace mg/dL (Negative) H 11/14/16 13:13 Urine Blood Large (Negative) H 11/14/16 13:13 Urine Nitrite Positive (Negative) A 11/14/16 13:13 Urine Bilirubin Moderate (Negative) H 11/14/16 13:13 Ur Leukocyte Esterase Small (Negative) H 11/14/16 13:13 Human Metapneumovirus DETECTED (Not Detect) A 11/19/16 07:54 Staphylococcus sp PCR DETECTED (Not Detect) A 11/13/16 23:38 - Clinical Findings Intake & Output: Intake & Output 11/19/16 11/20/16 11/20/16 23:59 07:59 15:59 Intake Total 100 / 100 100 / 100 100 / 100 Output Total 475 / 475 150 / 150 Balance -375 / -375 -50 / -50 100 / 100 - VTE Documentation of Mechanical Device: Intermittent pneumatic compression device Consult Discharge Plan - Plan Referrals: Jamie Santos MD [Primary Care Provider] - Kian Javier DO [Partnered Physician] - 12/04/16 10:40 am <Lisa Fernández - Last Filed: 11/20/16 17:42> Date of Encounter: 11/20/16 Objective PUL Vital signs: Last Vital Signs Temp 98.6 F 11/20/16 15:35 Pulse 72 11/20/16 16:00 Resp 18 11/20/16 16:00 BP 144/77 11/20/16 16:00 Pulse Ox 99 11/20/16 16:00 Results - Laboratory Findings CBC and BMP: 11/20/16 04:40 11/20/16 04:40 Abnormal lab findings: Abnormal lab results RBC 2.50 M/mcL (4.19-5.50) L 11/20/16 04:40 Hgb 7.6 g/dL (12.9-16.9) L 11/20/16 04:40 Hct 22.7 % (37.5-50.1) L 11/20/16 04:40 Reactive Lymphocytes Present (Not Present) A 11/19/16 04:30 VBG pH 7.29 pH Units (7.32-7.42) L 11/14/16 04:52 VBG pCO2 67 mmHg (41-51) H 11/14/16 04:52 VBG pO2 44 mmHg (25-40) H 11/14/16 04:52 VBG HCO3 32.2 mEq/L (21-27) H 11/14/16 04:52 Creatinine 0.68 mg/dL (0.72-1.25) L 11/20/16 04:40 POC Glucose 97 (58-89) H 11/19/16 04:15 Calcium 7.9 mg/dL (8.6-10.8) L 11/20/16 04:40 Ionized Calcium 1.09 mmol/L (1.15-1.35) L 11/14/16 04:52 Troponin I 0.58 ng/mL (0-0.03) H* 11/18/16 12:20 C-Reactive Protein 135 mg/L (Less than 5) H 11/14/16 04:52 Serum Total Protein 5.5 g/dL (6.0-8.3) L 11/13/16 22:49 Albumin 2.8 g/dL (3.5-5.0) L 11/13/16 22:49 Albumin/Globulin Ratio 1.0 (1.1-2.2) L 11/13/16 22:49 Prealbumin 11.0 mg/dL (18.0-45.0) L 11/14/16 04:52 HDL Cholesterol 25 mg/dL (40-59) L 11/14/16 04:52 Free T3 1.47 pg/mL (1.71-3.71) L 11/14/16 04:52 Ur Specimen Adequacy See below A 11/14/16 13:13 Urine Color Red (Yellow) A 11/14/16 13:13 Urine Clarity Cloudy (Clear) A 11/14/16 13:13 Urine Protein >=300 mg/dL (Neg-Trace) H 11/14/16 13:13 Urine Ketones Trace mg/dL (Negative) H 11/14/16 13:13 Urine Blood Large (Negative) H 11/14/16 13:13 Urine Nitrite Positive (Negative) A 11/14/16 13:13 Urine Bilirubin Moderate (Negative) H 11/14/16 13:13 Ur Leukocyte Esterase Small (Negative) H 11/14/16 13:13 Human Metapneumovirus DETECTED (Not Detect) A 11/19/16 07:54 Staphylococcus sp PCR DETECTED (Not Detect) A 11/13/16 23:38 - Clinical Findings Intake & Output: Intake & Output 11/20/16 11/20/16 11/20/16 07:59 15:59 23:59 Intake Total 100 / 100 100 / 100 Output Total 350 / 350 350 / 350 Balance -250 / -250 -250 / -250 - Attending Attestation I examined this patient and my medical decision-making was reviewed with the CLINICAL RN LIAISON/PA/Advanced Practice Nurse/Resident Physician. I agree with the documented findings, disposition and treatment plan as described except to the extent set forth below. Patient seen and examined. Labs, radiology, chart personally reviewed. 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 Vo at the bedside due to his hematuria and the consensus nontender blood transfusion and to focus on comfort care and this time including any procedure that might need to be done by Dr. Vo at the bedside. We will monitor in ICU for next 24 hours due to the hematuria and he needs procedure and the right side patient will need sedation that can be done in the ICU.
[2016-11-20] MEDS: Haloperidol Lactate 5 MG/ML VIAL IVP SCH ×2 (10:46→17:43)
[2016-11-20] MEDS: *HR* Morphine 2 MG/ML SYRINGE IVP PRN ×2 (13:42→19:45)
--- NOTE | 2016-11-20 13:47 | Palliative - Consult Note ---
Date of Encounter: 11/20/16 Time of Encounter: 13:45 - Assessment and Plan (1) Goals of care, counseling/discussion Current Visit: Yes Status: Acute Assessment and plan: Discussed plan of care with patient's spouse-Marybel Bustamante, and daughters Ladan and Celina following a conversation with Drs. Vo and Pradeep. They were able to summarize the prior conversation. At this time, care will not be escalated ( no blood transfusions), and we will re-evaluate in the morning. Code status remains DNR/DNI. We discussed discharge planning options-ECF vs. home health vs. hospice care and the qualifications to meet criteria. Mr. Rogers's family asked appropriate questions. career services assistant also following for discharge needed. The palliative care team will continue to follow with this patient during his hospitalization. Reviewed plan of care with ICU team. (2) Anemia Current Visit: Yes Status: Acute Assessment and plan: Follow H/H counts, no further transfusions at this time. Qualifiers: Anemia type: other cause Other causes of anemia: acute posthemorrhagic Qualified Code(s): D62 - Acute posthemorrhagic anemia (3) Cellulitis and abscess of foot Current Visit: Yes Status: Acute Assessment and plan: wound care as ordered. Podiatry following. Pain management with IV morphine or oxycodone. He has used one dose of each in the past 24 hours. Continue to follow. (4) Gross hematuria Current Visit: Yes Status: Acute Assessment and plan: Urology following. (5) HCAP (healthcare-associated pneumonia) Current Visit: Yes Status: Acute Assessment and plan: Pulmonology following. (6) Dementia in Alzheimer's disease Current Visit: Yes Status: Chronic Assessment and plan: Haloperidol 4mg every 8 hours scheduled. Continue with nightly dose of lorazepam (home medication). Palliative-CN HPI - Data of Consult Patient: new to practice Consult date: 11/20/16 Requesting Physician: Marisela Albrecht MD Primary Care Provider: Jamie Santos MD - Consult Narrative Palliative Care/Comfort Measures: Palliative care Reason for consult: Goals of care History of present illness: Mr. Rogers is a 81 year old male admitted to [facility] from a local ECF due to altered mental status and dehydration. Initial evaluation revealed healthcare associated pneumonia and cellulitis/abscess of the left foot. Mr. Rogers had been a resident of a local [facility] since 10/10/16. He fell in August 2016 and had a medial malleolus fracture and was followed by orthopedics. He had been placed in an air cast and was non-weight bearing on that leg. Mr. Rogers remained at home following the fracture until his family felt they could no longer safely meet his needs. He was then placed in a local ECF for rehab purposes. Prior to admission, Mr. Rogers was released from [facility] status, and was able to ambulate 25 feet with the assistance of a walker. Unfortunately, he developed a wound on his heel from the pressur of the air cast. A few days prior to admission, his family noticed a change in his mental status and eating habits. He was brought the the emergency department for further work-up and evaluation. Mr. Rogers was admitted and treated for HCAP and cellulitis. He does have dementia/Alzheimer's disease, but remians high functioning and able to take care of his ADL's with assistance. 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 During his hospitalization, Mr. Rogers was found to have Human Metapneumovirus. He also developed hematuria that requiring a urology consult and placement of a suprapubic catheter due to urethral stricture. The palliative care team was consulted to assist with goals of care planning given Mr. Rogers's complex medical conditions. CC: Marisela Albrecht MD Past Med Surg Social Fam HX - Past Medical History Source: old records reviewed, obtained from family Medical history: arthritis, atrial fibrillation, coronary artery disease, dementia, GERD, hyperlipidemia, hypertension, myocardial infarction, osteoporosis, peripheral artery disease (Carotid artery atherosclerosis. Moderate 40-59% stenosis of the right ICA versus nonstenotic plaque of left ICA. ), renal disease (Urinary retention. BPH/prostatism. Recurrent neurogenic bladder. History of ureteral stenosis.), TIA (History of TIA with transient expressive aphasia. History of TIA with gait disturbance.), valvular heart disease Psychiatric history: anxiety, other (dementia) - Past Surgical History Surgical History: angioplasty/stent, appendectomy, cataract, herniorrhaphy, orthopedic, other (Shoulder surgery. Cervical spine surgery.), sinus surgery ( Tonsillectomy- adenoidectomy), other (Prostate surgery.) - Social History Smoking Status: Former smoker Smokeless Tobacco Status: No Alcohol use: none Drug use: none Medications and Allergies Atorvastatin [Lipitor] 40 mg PO HS 08/28/16 [History] Gabapentin [Neurontin] 300 mg PO TID 08/28/16 [History] Metoprolol XL (24 HR) Succ [Toprol XL] 25 mg PO DAILY 08/28/16 [History] Tamsulosin [Flomax] 0.8 mg PO DAILY 08/28/16 [History] Aspirin 81 mg PO DAILY 10/10/16 [History] Betamethasone Gloria 0.1% Crm [Valisone 0.1%] 1 appl TP BID 10/10/16 [History] Furosemide [Lasix] 20 mg PO DAILY 10/10/16 [History] LORazepam [Ativan] 1 mg PO HS 10/10/16 [History] Nitroglycerin [Nitrostat] 0.4 mg SL AD PRN 10/10/16 [History] Valsartan/Hydrochlorothiazide [Diovan Hct 320-12.5 mg Tab] 1 tab PO DAILY [History] Haloperidol [Haldol] 5 mg PO TID 11/14/16 [History] Allergies ciprofloxacin [From Cipro] Allergy (Verified 11/14/16 08:15) Hives Penicillins [PCN] Allergy (Verified 11/14/16 08:15) Hives Sulfa (Sulfonamide Antibiotics) Allergy (Verified 11/14/16 08:15) Hives ROS unobtainable: due to mental status (Mr. Rogers was unwilling to participate in exam and portions of the consult note were taken with the input from his family. ) Palliative Care-Exam - Constitutional Vitals: Temp Pulse Resp BP Pulse Ox 98.0 F 88 15 176/88 98 11/20/16 11:16 11/20/16 12:00 11/20/16 12:00 11/20/16 12:00 11/20/16 12:00 General appearance: Present: average body habitus, no acute distress Exam: Mr. Rogers is an 81 year old male appearing his stated age, uncooperative with exam and history taking, family at bedside. - Eye Eye exam: Present: EOMI Pupils: Present: PERRL - ENT ENT exam: Present: mucous membranes moist - Respiratory Respiratory exam: Present: decreased breath sounds. Absent: accessory muscle use, respiratory distress, rhonchi, wheezes, tachypnea - Cardiovascular Cardiovascular exam: Present: irregular rhythm - Catheter Type: Suprapubic (draining deep red colored urine) - Extremities Exam Extremities exam: Absent: normal inspection (dressings intact to bilateral heels. ) - Neurological Exam Neurological exam: Present: alert, altered, strengths equal and symetr throughout - Psychiatric Psychiatric exam: Present: agitated - Skin Skin exam: Present: dry, warm. Absent: intact (dressings intact to bilateral heels. ) Internal Medicine - CN: Reslt - Labs CBC & Chem 7: 11/20/16 04:40 11/20/16 04:40 Labs: Short CBC 11/20/16 Range/Units 04:40 WBC 5.7 (4.3-11.1) K/mcL Hgb 7.6 L (12.9-16.9) g/dL Hct 22.7 L (37.5-50.1) % Plt Count 174 (140-400) K/mcL Neutrophils # 3.3 (1.6-8.9) K/mcL BMP 11/20/16 04:40 Sodium 137 Potassium 3.5 Chloride 104 Carbon Dioxide 25 BUN 17 Creatinine 0.68 L Glucose 86 Calcium 7.9 L Consult Discharge Plan - Plan Referrals: Jamie Santos MD [Primary Care Provider] - Kian Javier DO [Partnered Physician] - 12/04/16 10:40 am Palliative Quality Palliative Quality: Screen for Code Status: Yes, Screen for Goals of Care: Yes, Screen for Pain: Yes, If Pain Regimen Started, Initiate Bowel Regimen: Yes, Screen for Nausea/Vomitting: Yes Code Status: 11/14/16 03:09 Resuscitation Status: Active [RES] Routine Comment: Resuscitation Status: DNR-Comfort Care-Arrest 11/18/16 20:39 CODE [Resuscitation Status: Active] [RES] Routine Comment: Resuscitation Status: [id number]
[2016-11-20] MEDS: *HR* OxyCODONE Immed Rel 5 MG TABLET PO PRN (15:10)
[2016-11-20] MEDS ORDERED: Haloperidol Lactate 5 MG/ML VIAL IVP SCH (16:00)
[2016-11-20] MEDS: *HR* LORazepam 1 MG TABLET PO SCH (23:10)
[2016-11-21] MEDS: Haloperidol Lactate 5 MG/ML VIAL IVP SCH ×5 (00:22→23:42)
[2016-11-21] MEDS: Ipratropium/Albuterol Neb 3 ML IH SCH ×4 (04:15→22:05)
[2016-11-21 04:28] LABS: Basophils % 0.2 %; Eosinophils # 0.4 K/mcL (0.0-0.6); Eosinophils % 8.2 %; Hematocrit 22.1 % (37.5-50.1); Hemoglobin 6.9 g/dL (12.9-16.9); Immature Granulocytes % 0.8 % (0-4); Lymphocytes # 1.5 K/mcL (0.6-4.6); Lymphocytes % 29.2 %; Mean Corpuscular HGB Conc 31.2 g/dL (31.6-35.5); Mean Corpuscular Volume 92.9 fL (83.0-100.0); Mean Platelet Volume 8.9 fL (9.4-12.4); Monocytes # 0.3 K/mcL (0.0-1.3); Neutrophils # 2.8 K/mcL (1.6-8.9); Platelet Count 186 K/mcL (140-400); Red Blood Count 2.38 M/mcL (4.19-5.50); Red Cell Distribution Width 14.2 % (11.5-14.5); Segmented Neutrophils % 55.6 %
[2016-11-21 04:53] LABS: BUN/Creatinine Ratio 28 (6-26); Blood Urea Nitrogen 18 mg/dL (8-26); Carbon Dioxide 26 mEq/L (19-29); Chloride 106 mEq/L (98-109); Glucose 74 mg/dL (70-99); Magnesium 1.9 mg/dL (1.6-2.6); Osmolality,Calculated 291 (280-300); Potassium 3.5 mEq/L (3.5-4.5); Sodium 140 mEq/L (136-145); eGFR For African Americans > 60 (> 60); eGFR For Non-African Americans > 60 (> 60)
[2016-11-21 04:59] LABS: Platelet Estimate Normal (Normal); Reactive Lymphocytes Present (Not Present)
--- NOTE | 2016-11-21 08:43 | Urology Progress Note ---
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 Hbg did drop to 6.9. ok to transfer to floor. palliative care to assist in proper location for patient Progress Note Narrative: stable overnight. nurse irrigated large volume clots and now urine is clear. Objective Initial Vital Signs Temp Pulse Resp BP Pulse Ox 97.8 F 53 16 79/50 94 L 11/13/16 22:41 11/13/16 22:41 11/13/16 22:41 11/13/16 22:41 11/13/16 22:41 - General physical appearance Present: no distress, chronically ill - Additional Exam SPT with clear urine. - Labs 11/21/16 04:20 11/21/16 04:20 Diabetes panel 11/21/16 Range/Units 04:20 Sodium 140 (136-145) mEq/L Potassium 3.5 (3.5-4.5) mEq/L Chloride 106 (98-109) mEq/L Carbon Dioxide 26 (19-29) mEq/L BUN 18 (8-26) mg/dL Creatinine 0.64 L (0.72-1.25) mg/dL Glucose 74 (70-99) mg/dL Calcium 8.0 L (8.6-10.8) mg/dL Calcium panel 11/21/16 Range/Units 04:20 Calcium 8.0 L (8.6-10.8) mg/dL Pituitary panel 11/21/16 Range/Units 04:20 Sodium 140 (136-145) mEq/L Potassium 3.5 (3.5-4.5) mEq/L Chloride 106 (98-109) mEq/L Carbon Dioxide 26 (19-29) mEq/L BUN 18 (8-26) mg/dL Creatinine 0.64 L (0.72-1.25) mg/dL Glucose 74 (70-99) mg/dL Calcium 8.0 L (8.6-10.8) mg/dL Adrenal panel 11/21/16 Range/Units 04:20 Sodium 140 (136-145) mEq/L Potassium 3.5 (3.5-4.5) mEq/L Chloride 106 (98-109) mEq/L Carbon Dioxide 26 (19-29) mEq/L BUN 18 (8-26) mg/dL Creatinine 0.64 L (0.72-1.25) mg/dL Glucose 74 (70-99) mg/dL Calcium 8.0 L (8.6-10.8) mg/dL - VTE Documentation of Mechanical Device: Intermittent pneumatic compression device Consult Discharge Plan - Plan Referrals: Jamie Santos MD [Primary Care Provider] - Kian Javier DO [Partnered Physician] - 12/04/16 10:40 am
[2016-11-21] MEDS: Gabapentin 300 MG CAPSULE PO SCH ×3 (10:51→20:39)
[2016-11-21] MEDS: Aspirin 81 MG TAB.CHEW PO SCH (10:52)
[2016-11-21] MEDS: Furosemide 20 MG TABLET PO SCH (10:53)
[2016-11-21] MEDS: Metoprolol XL (24 HR) Succ 25 MG TAB.ER.24H PO SCH (10:53)
--- NOTE | 2016-11-21 12:58 | Pulmonology Progress Note ---
<Fito Mcnulty - Last Filed: 11/21/16 13:27> Date of Encounter: 11/21/16 Time of Encounter: 08:15 Assessment and Plan (1) Anemia Current Visit: Yes Status: Acute Patient presented to the hospital with hemoglobin of 10.1 over the course of his stay at the hospital it has been trending down and is now at 6.9. This appeared to be result of gross hematuria from unknown source and the urogenital tract. When viewed today no gross blood was seen in the catheter tubing, though the contents of the catheter bag or tea colored. Patient's family spoke with Dr. Fernández and Dr. Vo and would not like a transfusion if it were necessary. Dr. Vo is not planning any additional procedures. He has a history of prostate surgery and previous difficulty in stopping blood loss the urogenital system, embolization was required to stop the bleeding previously. We will continue to monitor daily labs NO transfusion Palliative care consulted and family thinking about changing patient CODE STATUS Qualifiers: Anemia type: other cause Other causes of anemia: acute posthemorrhagic Qualified Code(s): D62 - Acute posthemorrhagic anemia (2) Acute respiratory failure with hypoxia Current Visit: Yes Status: Acute Acute respiratory failure likely due to viral etiology with positive human metapneumo virus found on PCR. Initial blood cultures negative, Legionella and strep antigen negative. Patient maintaining adequate oxygen saturations with 2 L nasal cannula. He had previously received 7 days of antibiotics with azithromycin, aztreonam, and vancomycin. All antibiotics stopped previously Continue to supplement oxygen as needed, titrate and wean as tolerated Supportive care given likely viral etiology (3) Heart failure with preserved ejection fraction Current Visit: Yes Status: Acute Diastolic dysfunction seen on echocardiogram, slightly fluid overloaded, gentle diuresis was achieved with improvement in breathing. Continue metoprolol Continue aspirin Continue simvastatin Continue to monitor kidney function and urinary output, continue gentle diuresis if urinary output decreases (4) Atrial fibrillation Current Visit: Yes Status: Acute Patient heart rate within normal range with continued use of beta matthew. Continue telemetry to monitor for additional episodes of rapid ventricular response Matthew on when necessary We will continue to hold anticoagulation due to recent bleeding Qualifiers: Atrial fibrillation type: chronic Qualified Code(s): I48.2 - Chronic atrial fibrillation (5) Hypotension Current Visit: Yes Status: Resolved Patient hypotension likely multifactorial, unlikely infectious, possibly due to A. fib with RVR. Patient blood pressure has rebounded with better control of heart rate. Last blood pressure reading seen is 137/63. We will continue to monitor patient heart rate to prevent A. fib with RVR and treated with Lopressor if needed Continue monitor blood pressure Family does not want the use of pressor agents or fluid boluses in order to maintain patient blood pressure Qualifiers: Hypotension type: other hypotension type Qualified Code(s): I95.89 - Other hypotension (6) Pneumonia Current Visit: Yes Status: Acute Concern for aspiration pneumonia versus viral etiology of pneumonia seen in chest x-ray. He is able to maintain adequate oxygen saturation on 2 L nasal cannula. PCR positive for human metapnuemo virus. Patient previously received full course of antibiotics with azithromycin, aztreonam, and vancomycin. We will discontinue all antibiotics Continue to support oxygen saturation supplemental oxygen as needed, wean as tolerated Qualifiers: Pneumonia type: due to unspecified organism Laterality: right Lung location: unspecified part of lung Qualified Code(s): J18.9 - Pneumonia, unspecified organism (7) Dementia in Alzheimer's disease Current Visit: Yes Status: Chronic Patient has significant dementia, but has some more cooperative after initiating IV Haldol in place of by mouth Haldol. Patient more compliant with treatment regimen Continue IV Haldol Continue other medications Palliative care consult regarding goals of care (8) DVT prophylaxis Current Visit: Yes Status: Acute GI prophylaxis: Omeprazole DVT prophylaxis: EPCDs Neuro/psych: Severe dementia. Palliative care consulted. Pulmonary: Pneumonia likely due to human metapneumo virus. Some concern for aspiration as well. Patient had full 7 day course of azithromycin, aztreonam, and vancomycin. Antibiotics now stopped. Currently maintaining adequate oxygen saturation on 2 L nasal cannula. Supplement oxygen as necessary wean as tolerated. Cardiovascular: Previously had hypotension, Heart failure with preserved ejection fraction, AICD in place, atrial fibrillation previously in RVR. Pacemaker in place, gentle diuresis achieved, we will continue to monitor. Atrial fibrillation with rapid ventricular response improved with use of beta blockers. Hypotension resolved with improvement in patient's heart rate. Family declines further pressors or fluid boluses to maintain a pressure. Fluids/electrolytes: No concerns at this time, we will continue to monitor GI: No concerns at this time Renal/: Significant hematuria has resolved as of this morning, likely cause of patient's anemia. Previous embolization required to stop patient urogenital bleeding. No further procedures planned by urology. Heme/onc: Anemia that is worsening, likely due to hemorrhage and urogenital tract. Patient family refuses transfusion if necessary. Endo: No consistent this time Integument: Stage II ulcer seen on patient heel and sacral area, clean and dress per protocol Disposition: With no plan for further procedures, patient stable for discharge to to a with care from palliative team CODE STATUS: DNR CCA/DNI Subjective Principal diagnosis: HFpEF, Anemia, Resp. Fail. Interval history: Patient appears to be doing well today and is able to answer questions appropriately. He is pleasant this morning and cooperates with exam. He states he is having some pain/tenderness in the suprapubic region around the area of the suprapubic catheter. But otherwise has no real complaints today. He denies difficulty breathing and pain anywhere else. Objective PUL Vital signs: Last Vital Signs Temp 97.7 F 11/21/16 08:36 Pulse 78 11/21/16 10:00 Resp 18 11/21/16 10:00 BP 133/79 11/21/16 10:00 Pulse Ox 94 L 11/21/16 10:00 General appearance: no acute distress, alert Eyes: nonicteric ENT: oropharynx dry Effort: normal Auscultation: bilateral: clear Cardiovascular: regular rate and rhythm Gastrointestinal: normoactive bowel sounds, soft, non-tender, non-distended, other (Suprapubic catheter in place, no erythema or induration surrounding) Integumentary: other (Skin breakdown noted on bilateral patient heals, top layer of skin appears sloughed off, did not appear to be pressure ulcers, dressing in place and coccyx region to prophylactic concerns for pressure ulcer) Extremities: no cyanosis, no edema, no clubbing, pink and warm, pulses normal Musculoskeletal: no deformities non-focal exam, pupils equal and round, other (Dementia baseline) mood appropriate, affect normal Results - Laboratory Findings CBC and BMP: 11/21/16 04:20 11/21/16 04:20 Abnormal lab findings: Abnormal lab results RBC 2.38 M/mcL (4.19-5.50) L 11/21/16 04:20 Hgb 6.9 g/dL (12.9-16.9) L 11/21/16 04:20 Hct 22.1 % (37.5-50.1) L 11/21/16 04:20 MCHC 31.2 g/dL (31.6-35.5) L 11/21/16 04:20 MPV 8.9 fL (9.4-12.4) L 11/21/16 04:20 Reactive Lymphocytes Present (Not Present) A 11/21/16 04:20 VBG pH 7.29 pH Units (7.32-7.42) L 11/14/16 04:52 VBG pCO2 67 mmHg (41-51) H 11/14/16 04:52 VBG pO2 44 mmHg (25-40) H 11/14/16 04:52 VBG HCO3 32.2 mEq/L (21-27) H 11/14/16 04:52 Creatinine 0.64 mg/dL (0.72-1.25) L 11/21/16 04:20 BUN/Creatinine Ratio 28 (6-26) H 11/21/16 04:20 POC Glucose 97 (58-89) H 11/19/16 04:15 Calcium 8.0 mg/dL (8.6-10.8) L 11/21/16 04:20 Ionized Calcium 1.09 mmol/L (1.15-1.35) L 11/14/16 04:52 Troponin I 0.58 ng/mL (0-0.03) H* 11/18/16 12:20 C-Reactive Protein 135 mg/L (Less than 5) H 11/14/16 04:52 Serum Total Protein 5.5 g/dL (6.0-8.3) L 11/13/16 22:49 Albumin 2.8 g/dL (3.5-5.0) L 11/13/16 22:49 Albumin/Globulin Ratio 1.0 (1.1-2.2) L 11/13/16 22:49 Prealbumin 11.0 mg/dL (18.0-45.0) L 11/14/16 04:52 HDL Cholesterol 25 mg/dL (40-59) L 11/14/16 04:52 Free T3 1.47 pg/mL (1.71-3.71) L 11/14/16 04:52 Ur Specimen Adequacy See below A 11/14/16 13:13 Urine Color Red (Yellow) A 11/14/16 13:13 Urine Clarity Cloudy (Clear) A 11/14/16 13:13 Urine Protein >=300 mg/dL (Neg-Trace) H 11/14/16 13:13 Urine Ketones Trace mg/dL (Negative) H 11/14/16 13:13 Urine Blood Large (Negative) H 11/14/16 13:13 Urine Nitrite Positive (Negative) A 11/14/16 13:13 Urine Bilirubin Moderate (Negative) H 11/14/16 13:13 Ur Leukocyte Esterase Small (Negative) H 11/14/16 13:13 Human Metapneumovirus DETECTED (Not Detect) A 11/19/16 07:54 Staphylococcus sp PCR DETECTED (Not Detect) A 11/13/16 23:38 - Microbiology Findings Microbiology Findings: Microbiology, Last 48 Hours 11/19/16 07:29 Blood Culture - Preliminary Peripheral Venipuncture No growth. - Clinical Findings Intake & Output: Intake & Output 11/20/16 11/21/16 11/21/16 23:59 07:59 15:59 Output Total 150 / 150 150 / 150 150 / 150 Balance -150 / -150 -150 / -150 -150 / -150 Weight 84.7 kg - VTE Documentation of Mechanical Device: Intermittent pneumatic compression device Consult Discharge Plan - Plan Referrals: Jamie Santos MD [Primary Care Provider] - Kian Javier DO [Partnered Physician] - 12/04/16 10:40 am <Lisa Fernández - Last Filed: 11/21/16 21:03> Date of Encounter: 11/21/16 Objective PUL Vital signs: Last Vital Signs Temp 97.8 F 11/21/16 19:37 Pulse 96 11/21/16 19:37 Resp 16 11/21/16 19:37 BP 137/76 11/21/16 19:37 Pulse Ox 96 11/21/16 19:37 Results - Laboratory Findings CBC and BMP: 11/21/16 04:20 11/21/16 04:20 Abnormal lab findings: Abnormal lab results RBC 2.38 M/mcL (4.19-5.50) L 11/21/16 04:20 Hgb 6.9 g/dL (12.9-16.9) L 11/21/16 04:20 Hct 22.1 % (37.5-50.1) L 11/21/16 04:20 MCHC 31.2 g/dL (31.6-35.5) L 11/21/16 04:20 MPV 8.9 fL (9.4-12.4) L 11/21/16 04:20 Reactive Lymphocytes Present (Not Present) A 11/21/16 04:20 VBG pH 7.29 pH Units (7.32-7.42) L 11/14/16 04:52 VBG pCO2 67 mmHg (41-51) H 11/14/16 04:52 VBG pO2 44 mmHg (25-40) H 11/14/16 04:52 VBG HCO3 32.2 mEq/L (21-27) H 11/14/16 04:52 Creatinine 0.64 mg/dL (0.72-1.25) L 11/21/16 04:20 BUN/Creatinine Ratio 28 (6-26) H 11/21/16 04:20 POC Glucose 97 (58-89) H 11/19/16 04:15 Calcium 8.0 mg/dL (8.6-10.8) L 11/21/16 04:20 Ionized Calcium 1.09 mmol/L (1.15-1.35) L 11/14/16 04:52 Troponin I 0.58 ng/mL (0-0.03) H* 11/18/16 12:20 C-Reactive Protein 135 mg/L (Less than 5) H 11/14/16 04:52 Serum Total Protein 5.5 g/dL (6.0-8.3) L 11/13/16 22:49 Albumin 2.8 g/dL (3.5-5.0) L 11/13/16 22:49 Albumin/Globulin Ratio 1.0 (1.1-2.2) L 11/13/16 22:49 Prealbumin 11.0 mg/dL (18.0-45.0) L 11/14/16 04:52 HDL Cholesterol 25 mg/dL (40-59) L 11/14/16 04:52 Free T3 1.47 pg/mL (1.71-3.71) L 11/14/16 04:52 Ur Specimen Adequacy See below A 11/14/16 13:13 Urine Color Red (Yellow) A 11/14/16 13:13 Urine Clarity Cloudy (Clear) A 11/14/16 13:13 Urine Protein >=300 mg/dL (Neg-Trace) H 11/14/16 13:13 Urine Ketones Trace mg/dL (Negative) H 11/14/16 13:13 Urine Blood Large (Negative) H 11/14/16 13:13 Urine Nitrite Positive (Negative) A 11/14/16 13:13 Urine Bilirubin Moderate (Negative) H 11/14/16 13:13 Ur Leukocyte Esterase Small (Negative) H 11/14/16 13:13 Human Metapneumovirus DETECTED (Not Detect) A 11/19/16 07:54 Staphylococcus sp PCR DETECTED (Not Detect) A 11/13/16 23:38 - Microbiology Findings Microbiology Findings: Microbiology, Last 48 Hours 11/19/16 07:29 Blood Culture - Preliminary Peripheral Venipuncture No growth. - Clinical Findings Intake & Output: Intake & Output 11/21/16 11/21/16 11/21/16 07:59 15:59 23:59 Intake Total 0 / 0 Output Total 150 / 150 300 / 300 100 / 100 Balance -150 / -150 -300 / -300 -100 / -100 Weight 84.7 kg - Attending Attestation I examined this patient and my medical decision-making was reviewed with the MOBILE MARKETING SPECIALIST/PA/Advanced Practice Nurse/Resident Physician. I agree with the documented findings, disposition and treatment plan as described except to the extent set forth below. Patient seen and examined. Labs, radiology, chart personally reviewed. Agree with resident's history and physical, assessment, plan with following comments: PIPE SUPERVISOR: Patient lethargic and confused., Pulmonary: Acceptable oxygenation and ventilation Cardiovascular: stable GI: Patient is not eating enough Heme: Anemia secondary to blood loss. No need for transfusion. Renal; urine out put and renal funtion reviewed. No intervention from urologist and I agree with the plan. Discussed with family at bedside and they agree. Transfer patient to palliative care bed.
--- NOTE | 2016-11-21 12:59 | Palliative Progress Note ---
Date of Encounter: 11/21/16 Time of Encounter: 11:30 - Assessment and plan (1) Goals of care, counseling/discussion Current Visit: Yes Status: Acute Assessment and plan: Goals of care discussion yesterday. Discharge disposition pending on urological status. services rep following. Family considering transition to hospice care, will trend labs to determine the degree of anemia. (2) Anemia Current Visit: Yes Status: Acute Assessment and plan: Urology following for hematruia, monitor labs. Qualifiers: Anemia type: other cause Other causes of anemia: acute posthemorrhagic Qualified Code(s): D62 - Acute posthemorrhagic anemia (3) Cellulitis and abscess of foot Current Visit: Yes Status: Acute Assessment and plan: wound care (4) Gross hematuria Current Visit: Yes Status: Acute Assessment and plan: urology following. (5) HCAP (healthcare-associated pneumonia) Current Visit: Yes Status: Acute Assessment and plan: treatment per ICU team. (6) Dementia in Alzheimer's disease Current Visit: Yes Status: Chronic Assessment and plan: Haldol scheduled every 6 hours for agitation, lorazepam to assist with sleep ( home medications). - Time Spent With Patient Total time spent is greater than 50% in coordination of care (as documented) at patient's floor/unit and/or counseling patient: - Subjective Interval history: Mr. Rogers is resting in bed. His nurse reports a restful night. Urine output has average 150ml in a 4 hour time period. His hematuria has improved. Hemoglobin noted. - Constitutional Vitals: Abnormal lab results RBC 2.38 M/mcL (4.19-5.50) L 11/21/16 04:20 Hgb 6.9 g/dL (12.9-16.9) L 11/21/16 04:20 Hct 22.1 % (37.5-50.1) L 11/21/16 04:20 MCHC 31.2 g/dL (31.6-35.5) L 11/21/16 04:20 MPV 8.9 fL (9.4-12.4) L 11/21/16 04:20 Reactive Lymphocytes Present (Not Present) A 11/21/16 04:20 VBG pH 7.29 pH Units (7.32-7.42) L 11/14/16 04:52 VBG pCO2 67 mmHg (41-51) H 11/14/16 04:52 VBG pO2 44 mmHg (25-40) H 11/14/16 04:52 VBG HCO3 32.2 mEq/L (21-27) H 11/14/16 04:52 Creatinine 0.64 mg/dL (0.72-1.25) L 11/21/16 04:20 BUN/Creatinine Ratio 28 (6-26) H 11/21/16 04:20 POC Glucose 97 (58-89) H 11/19/16 04:15 Calcium 8.0 mg/dL (8.6-10.8) L 11/21/16 04:20 Ionized Calcium 1.09 mmol/L (1.15-1.35) L 11/14/16 04:52 Troponin I 0.58 ng/mL (0-0.03) H* 11/18/16 12:20 C-Reactive Protein 135 mg/L (Less than 5) H 11/14/16 04:52 Serum Total Protein 5.5 g/dL (6.0-8.3) L 11/13/16 22:49 Albumin 2.8 g/dL (3.5-5.0) L 11/13/16 22:49 Albumin/Globulin Ratio 1.0 (1.1-2.2) L 11/13/16 22:49 Prealbumin 11.0 mg/dL (18.0-45.0) L 11/14/16 04:52 HDL Cholesterol 25 mg/dL (40-59) L 11/14/16 04:52 Free T3 1.47 pg/mL (1.71-3.71) L 11/14/16 04:52 Ur Specimen Adequacy See below A 11/14/16 13:13 Urine Color Red (Yellow) A 11/14/16 13:13 Urine Clarity Cloudy (Clear) A 11/14/16 13:13 Urine Protein >=300 mg/dL (Neg-Trace) H 11/14/16 13:13 Urine Ketones Trace mg/dL (Negative) H 11/14/16 13:13 Urine Blood Large (Negative) H 11/14/16 13:13 Urine Nitrite Positive (Negative) A 11/14/16 13:13 Urine Bilirubin Moderate (Negative) H 11/14/16 13:13 Ur Leukocyte Esterase Small (Negative) H 11/14/16 13:13 Human Metapneumovirus DETECTED (Not Detect) A 11/19/16 07:54 Staphylococcus sp PCR DETECTED (Not Detect) A 11/13/16 23:38 General appearance: Present: cooperative, no acute distress - ENT ENT exam: Present: mucous membranes moist - Respiratory Respiratory exam: Present: wheezes - Cardiovascular Cardiovascular exam: Present: RRR - GI/Abdominal GI/Abdominal exam: Present: soft. Absent: tenderness - Additional comments: suprapubic catheter - Extremities Exam Extremities exam: Absent: normal inspection (bilateral heels with dressings intact) - Neurological Exam Neurological exam: Present: alert, no focal deficits. Absent: oriented X3 - Psychiatric Psychiatric exam: Absent: agitated, anxious - Skin Skin exam: Present: dry, warm Palliative Quality Palliative Quality: Screen for Code Status: Yes, Screen for Goals of Care: Yes, Screen for Pain: Yes, If Pain Regimen Started, Initiate Bowel Regimen: Yes, Screen for Nausea/Vomitting: Yes Code Status: 11/14/16 03:09 Resuscitation Status: Active [RES] Routine Comment: Resuscitation Status: DNR-Comfort Care-Arrest 11/18/16 20:39 CODE [Resuscitation Status: Active] [RES] Routine Comment: Resuscitation Status: [id number] - Labs CBC & Chem 7: 11/21/16 04:20 11/21/16 04:20 Labs: Laboratory Results - last 24 hr 11/21/16 11/21/16 04:20 04:20 WBC 5.0 RBC 2.38 L Hgb 6.9 L Hct 22.1 L MCV 92.9 MCH 29.0 MCHC 31.2 L RDW 14.2 Plt Count 186 MPV 8.9 L Immature Gran % 0.8 Seg Neutrophils % 55.6 Lymphocytes % 29.2 Monocytes % 6.0 Eosinophils % 8.2 Basophils % 0.2 Neutrophils # 2.8 Lymphocytes # 1.5 Monocytes # 0.3 Eosinophils # 0.4 Basophils # 0.0 Reactive Lymphocytes Present A Platelet Estimate Normal Sodium 140 Potassium 3.5 Chloride 106 Carbon Dioxide 26 BUN 18 Creatinine 0.64 L Est GFR ( Amer) > 60 Est GFR (Non-Af Amer) > 60 BUN/Creatinine Ratio 28 H Glucose 74 Calculated Osmolality 291 Calcium 8.0 L Magnesium 1.9 Consult Discharge Plan - Plan Referrals: Jamie Santos MD [Primary Care Provider] - Kian Javier DO [Partnered Physician] - 12/04/16 10:40 am
[2016-11-21] MEDS ORDERED: *HR* Metoprolol 5 MG/5 ML VIAL IVP PRN (14:56)
[2016-11-21] MEDS ORDERED: *HR* Belladonna Alkaloids/Opium 30 MG RECTAL SUPPOSITORY RC PRN (14:56)
[2016-11-21] MEDS ORDERED: Nitroglycerin 0.4 MG TAB.SUBL SL PRN (14:56)
[2016-11-21] MEDS ORDERED: Acetaminophen 325 MG TABLET PO PRN (14:56)
[2016-11-21] MEDS ORDERED: Ondansetron 4 MG/2 ML VIAL IVP PRN (14:56)
[2016-11-21] MEDS ORDERED: Naloxone 0.4 MG/ML INJ IVP PRN (14:56)
[2016-11-21] MEDS ORDERED: Mag Hydrox/Al Hydrox/Simeth 30 ML UDC PO PRN (14:56)
[2016-11-21] MEDS ORDERED: Benzonatate 100 MG CAPSULE PO PRN (14:56)
[2016-11-21] MEDS ORDERED: *HR* OxyCODONE Immed Rel 5 MG TABLET PO PRN (14:56)
[2016-11-21] MEDS ORDERED: Albuterol 2.5 MG/3 ML NEBULIZER IH PRN (14:56)
--- NOTE | 2016-11-21 16:05 | Event Note ---
Date of Encounter: 11/21/16 Time of Encounter: 16:[address] Goodson who is the admitting hospitalist at this time and provided signout regarding the patient transfer to to a . She accepted the patient at this time.
[2016-11-21] MEDS: *HR* LORazepam 1 MG TABLET PO SCH (20:39)
[2016-11-22] MEDS: Ipratropium/Albuterol Neb 3 ML IH SCH ×4 (04:09→23:00)
[2016-11-22 05:21] LABS: Basophils % 0.1 %; Eosinophils # 0.5 K/mcL (0.0-0.6); Eosinophils % 6.4 %; Hematocrit 25.5 % (37.5-50.1); Lymphocytes # 2.2 K/mcL (0.6-4.6); Lymphocytes % 30.7 %; Mean Corpuscular HGB Conc 31.4 g/dL (31.6-35.5); Mean Corpuscular Hemoglobin 28.9 pg (28.0-33.3); Mean Corpuscular Volume 92.1 fL (83.0-100.0); Mean Platelet Volume 9.5 fL (9.4-12.4); Monocytes # 0.3 K/mcL (0.0-1.3); Monocytes % 4.8 %; Platelet Count 279 K/mcL (140-400); Red Blood Count 2.77 M/mcL (4.19-5.50); Red Cell Distribution Width 14.2 % (11.5-14.5)
[2016-11-22 05:22] LABS: Neutrophils # 4.1 K/mcL (1.6-8.9)
[2016-11-22 05:33] LABS: BUN/Creatinine Ratio 26 (6-26); Blood Urea Nitrogen 18 mg/dL (8-26); Calcium 8.4 mg/dL (8.6-10.8); Carbon Dioxide 19 mEq/L (19-29); Chloride 106 mEq/L (98-109); Glucose 64 mg/dL (70-99); Osmolality,Calculated 296 (280-300); Potassium 3.7 mEq/L (3.5-4.5); Sodium 143 mEq/L (136-145); eGFR For African Americans > 60 (> 60); eGFR For Non-African Americans > 60 (> 60)
[2016-11-22 05:58] LABS: Reactive Lymphocytes Present (Not Present)
[2016-11-22 05:59] LABS: Ovalocytes 1+ (Not Present); Platelet Estimate Normal (Normal); Poikilocytosis 1+ (Not Present)
[2016-11-22] MEDS ORDERED: Aspirin 81 MG TAB.CHEW PO SCH (09:00)
[2016-11-22] MEDS: Haloperidol Lactate 5 MG/ML VIAL IVP SCH ×2 (09:25→16:54)
[2016-11-22] MEDS: Furosemide 20 MG TABLET PO SCH (09:25)
[2016-11-22] MEDS: Gabapentin 300 MG CAPSULE PO SCH ×3 (09:26→18:36)
[2016-11-22] MEDS: Metoprolol XL (24 HR) Succ 25 MG TAB.ER.24H PO SCH (09:26)
[2016-11-22] MEDS: *HR* Morphine 2 MG/ML SYRINGE IVP PRN ×3 (09:27→22:19)
--- NOTE | 2016-11-22 13:52 | Internal Med Progress Note ---
Date of Encounter: 11/22/16 Time of Encounter: 10:35 - Assessment and plan (1) Acute respiratory failure with hypoxia Current Visit: Yes Status: Acute Assessment and plan: Improving. On 2 L nasal cannula. Completed antibiotic course. Most likely due to viral pneumonia. (2) Anemia Current Visit: Yes Status: Acute Assessment and plan: Hemoglobin level today is 8. We will continue to monitor blood counts. Patient 's urine appears to tolerate without any [place] hematuria. Moderate risk for complications Qualifiers: Anemia type: other cause Other causes of anemia: acute posthemorrhagic Qualified Code(s): D62 - Acute posthemorrhagic anemia (3) Atrial fibrillation Current Visit: Yes Status: Acute Assessment and plan: Rate controlled. Qualifiers: Atrial fibrillation type: chronic Qualified Code(s): I48.2 - Chronic atrial fibrillation (4) Heart failure with preserved ejection fraction Current Visit: Yes Status: Acute (5) Pneumonia Current Visit: Yes Status: Acute Qualifiers: Pneumonia type: due to unspecified organism Laterality: right Lung location: unspecified part of lung Qualified Code(s): J18.9 - Pneumonia, unspecified organism (6) Dementia in Alzheimer's disease Current Visit: Yes Status: Chronic Assessment and plan: Receiving Haldol for delirium. (7) DVT prophylaxis Current Visit: Yes Status: Acute - Subjective Interval history: Patient is currently lying in bed and sleeping. Easily awakes. is present at bedside. No new complaints at this time. Denies any pain. - Constitutional Vitals: Temp Pulse Resp BP Pulse Ox 98 F 74 18 155/82 92 L 11/22/16 07:08 11/22/16 07:08 11/22/16 07:08 11/22/16 07:08 11/22/16 07:08 General appearance: Present: cachectic, cooperative, A&O X 1, obese, severe distress. Absent: answers questions appropriately - Respiratory Respiratory exam: Present: CTAB. Absent: accessory muscle use, rales, rhonchi, wheezes - Cardiovascular Cardiovascular exam: Present: RRR, +S1, +S2. Absent: diastolic murmur, gallop, rubs, systolic murmur - GI/Abdominal GI/Abdominal exam: Present: normal bowel sounds, soft, no peritoneal signs. Absent: distended, tenderness - Extremities Exam Extremities exam: Present: warm, radial pulses palpable and symetrical. Absent : calf tenderness, cyanotic, pedal edema Internal Medicine: Result - Labs CBC & Chem 7: 11/22/16 04:30 11/22/16 04:30 Labs: Short CBC 11/22/16 Range/Units 04:30 WBC 7.1 (4.3-11.1) K/mcL Hgb 8.0 L (12.9-16.9) g/dL Hct 25.5 L (37.5-50.1) % Plt Count 279 (140-400) K/mcL Neutrophils # 4.1 (1.6-8.9) K/mcL BMP 11/22/16 04:30 Sodium 143 Potassium 3.7 Chloride 106 Carbon Dioxide 19 BUN 18 Creatinine 0.70 L Glucose 64 L Calcium 8.4 L - VTE Documentation of Mechanical Device: Intermittent pneumatic compression device Consult Discharge Plan - Plan Referrals: Jamie Santos MD [Primary Care Provider] - (Patient will follow up with doctor at the [facility]) Kian Javier DO [Partnered Physician] - 12/04/16 10:40 am - Attending Attestation This document has been at least partially created by [employer] recognition technology by Dr. Medrano. Errors in grammar, wording or other phrases may exist. If errors are found after the documentation is signed, they will be addressed individually in the addendum section of this document when appropriate.
--- NOTE | 2016-11-22 16:05 | Palliative Progress Note ---
Date of Encounter: 11/22/16 Time of Encounter: 16:03 - Assessment and plan (1) Goals of care, counseling/discussion Current Visit: Yes Status: Acute Assessment and plan: Goals of care discussion continues with director social service guidance. Hospice eligibility still marginal. Will continue to trend H/H. (2) Anemia Current Visit: Yes Status: Acute Assessment and plan: Urology following for hematruia, monitor labs. Qualifiers: Anemia type: other cause Other causes of anemia: acute posthemorrhagic Qualified Code(s): D62 - Acute posthemorrhagic anemia (3) Cellulitis and abscess of foot Current Visit: Yes Status: Acute Assessment and plan: wound care (4) Gross hematuria Current Visit: Yes Status: Acute Assessment and plan: urology following. (5) HCAP (healthcare-associated pneumonia) Current Visit: Yes Status: Acute Assessment and plan: treatment per hospitalist. (6) Dementia in Alzheimer's disease Current Visit: Yes Status: Chronic Assessment and plan: Haldol scheduled every 6 hours for agitation, lorazepam to assist with sleep ( home medications). - Time Spent With Patient Total time spent is greater than 50% in coordination of care (as documented) at patient's floor/unit and/or counseling patient: - Subjective Interval history: Mr. Rogers is resting in bed. He is still refusing to eat any amounts of food. His mood has improved and he is cooperative. Family at bedside. - Constitutional Vitals: Abnormal lab results RBC 2.77 M/mcL (4.19-5.50) L 11/22/16 04:30 Hgb 8.0 g/dL (12.9-16.9) L 11/22/16 04:30 Hct 25.5 % (37.5-50.1) L 11/22/16 04:30 MCHC 31.4 g/dL (31.6-35.5) L 11/22/16 04:30 Reactive Lymphocytes Present (Not Present) A 11/22/16 04:30 Poikilocytosis 1+ (Not Present) A 11/22/16 04:30 Ovalocytes 1+ (Not Present) A 11/22/16 04:30 VBG pH 7.29 pH Units (7.32-7.42) L 11/14/16 04:52 VBG pCO2 67 mmHg (41-51) H 11/14/16 04:52 VBG pO2 44 mmHg (25-40) H 11/14/16 04:52 VBG HCO3 32.2 mEq/L (21-27) H 11/14/16 04:52 Creatinine 0.70 mg/dL (0.72-1.25) L 11/22/16 04:30 Glucose 64 mg/dL (70-99) L 11/22/16 04:30 POC Glucose 97 (58-89) H 11/19/16 04:15 Calcium 8.4 mg/dL (8.6-10.8) L 11/22/16 04:30 Ionized Calcium 1.09 mmol/L (1.15-1.35) L 11/14/16 04:52 Troponin I 0.58 ng/mL (0-0.03) H* 11/18/16 12:20 C-Reactive Protein 135 mg/L (Less than 5) H 11/14/16 04:52 Serum Total Protein 5.5 g/dL (6.0-8.3) L 11/13/16 22:49 Albumin 2.8 g/dL (3.5-5.0) L 11/13/16 22:49 Albumin/Globulin Ratio 1.0 (1.1-2.2) L 11/13/16 22:49 Prealbumin 11.0 mg/dL (18.0-45.0) L 11/14/16 04:52 HDL Cholesterol 25 mg/dL (40-59) L 11/14/16 04:52 Free T3 1.47 pg/mL (1.71-3.71) L 11/14/16 04:52 Ur Specimen Adequacy See below A 11/14/16 13:13 Urine Color Red (Yellow) A 11/14/16 13:13 Urine Clarity Cloudy (Clear) A 11/14/16 13:13 Urine Protein >=300 mg/dL (Neg-Trace) H 11/14/16 13:13 Urine Ketones Trace mg/dL (Negative) H 11/14/16 13:13 Urine Blood Large (Negative) H 11/14/16 13:13 Urine Nitrite Positive (Negative) A 11/14/16 13:13 Urine Bilirubin Moderate (Negative) H 11/14/16 13:13 Ur Leukocyte Esterase Small (Negative) H 11/14/16 13:13 Human Metapneumovirus DETECTED (Not Detect) A 11/19/16 07:54 Staphylococcus sp PCR DETECTED (Not Detect) A 11/13/16 23:38 General appearance: Present: cooperative, no acute distress - ENT ENT exam: Present: mucous membranes moist - Respiratory Respiratory exam: Absent: accessory muscle use, respiratory distress, tachypnea - Cardiovascular Cardiovascular exam: Present: RRR - GI/Abdominal GI/Abdominal exam: Present: normal bowel sounds. Absent: tenderness - Additional comments: suprapubic catheter in place with no valentina hematuria. - Extremities Exam Extremities exam: Absent: normal inspection (dressings intact to bilateral heels ) - Neurological Exam Neurological exam: Present: alert (cooperative), no focal deficits. Absent: oriented X3 - Psychiatric Psychiatric exam: Absent: agitated, anxious - Skin Skin exam: Absent: intact (dressings intact to bilateral heels. ) Palliative Quality Palliative Quality: Screen for Code Status: Yes, Screen for Goals of Care: Yes, Screen for Pain: Yes, If Pain Regimen Started, Initiate Bowel Regimen: Yes, Screen for Nausea/Vomitting: Yes Code Status: 11/14/16 03:09 Resuscitation Status: Active [RES] Routine Comment: Resuscitation Status: DNR-Comfort Care-Arrest 11/18/16 20:39 CODE [Resuscitation Status: Active] [RES] Routine Comment: Resuscitation Status: [id number] - Labs CBC & Chem 7: 11/22/16 04:30 11/22/16 04:30 Labs: Laboratory Results - last 24 hr 11/22/16 11/22/16 04:30 04:30 WBC 7.1 RBC 2.77 L Hgb 8.0 L Hct 25.5 L MCV 92.1 MCH 28.9 MCHC 31.4 L RDW 14.2 Plt Count 279 MPV 9.5 Immature Gran % 1.0 Seg Neutrophils % 57.0 Lymphocytes % 30.7 Monocytes % 4.8 Eosinophils % 6.4 Basophils % 0.1 Neutrophils # 4.1 Lymphocytes # 2.2 Monocytes # 0.3 Eosinophils # 0.5 Basophils # 0.0 Reactive Lymphocytes Present A Platelet Estimate Normal Poikilocytosis 1+ A Ovalocytes 1+ A Sodium 143 Potassium 3.7 Chloride 106 Carbon Dioxide 19 BUN 18 Creatinine 0.70 L Est GFR ( Amer) > 60 Est GFR (Non-Af Amer) > 60 BUN/Creatinine Ratio 26 Glucose 64 L Calculated Osmolality 296 Calcium 8.4 L Consult Discharge Plan - Plan Referrals: Jamie Santos MD [Primary Care Provider] - (Patient will follow up with doctor at the [facility]) Kian Javier DO [Partnered Physician] - 12/04/16 10:40 am
[2016-11-22] MEDS: *HR* LORazepam 1 MG TABLET PO SCH (18:37)
[2016-11-23] MEDS: Haloperidol Lactate 5 MG/ML VIAL IVP SCH ×4 (00:28→19:42)
[2016-11-23] MEDS: *HR* Morphine 2 MG/ML SYRINGE IVP PRN ×4 (05:36→23:50)
[2016-11-23] MEDS: Ipratropium/Albuterol Neb 3 ML IH SCH ×5 (05:55→22:39)
[2016-11-23] MEDS ORDERED: Aspirin Enteric Coated 81 MG Tablet PO SCH (09:00)
[2016-11-23] MEDS: Metoprolol XL (24 HR) Succ 25 MG TAB.ER.24H PO SCH (09:33)
[2016-11-23] MEDS: Gabapentin 300 MG CAPSULE PO SCH ×2 (09:33→15:26)
[2016-11-23] MEDS: Furosemide 20 MG TABLET PO SCH (09:33)
--- NOTE | 2016-11-23 10:05 | Palliative Progress Note ---
Date of Encounter: 11/23/16 Time of Encounter: 10:01 - Assessment and plan (1) Metabolic encephalopathy Current Visit: Yes Status: Acute Assessment and plan: Ms. Rogers has become increasingly more agitated throughout the day. He has not responded to the presence of family members. Mr. Rogers has been 8 days without meaningful oral intake (only 1-2 bites of food per day). This could be related to terminal delerium. Will increase Haldol to every 6 hours and add lorazepam 1mg every 4 hours as needed. Discussed (2) Goals of care, counseling/discussion Current Visit: Yes Status: Acute Assessment and plan: Goals of care discussion with patient's family. Goals have been transitioned to DNR-Comfort care. Will adjust medications to manage terminal delirium vs. Metabolic encephalopathy. Family would like to enroll in [facility], and arrangements were made. (3) Anemia Current Visit: Yes Status: Acute Assessment and plan: Urology following for hematruia. No valentina blood in catheter. Labs not checked as the goal is comfort. Qualifiers: Anemia type: other cause Other causes of anemia: acute posthemorrhagic Qualified Code(s): D62 - Acute posthemorrhagic anemia (4) Cellulitis and abscess of foot Current Visit: Yes Status: Acute Assessment and plan: wound care (5) Gross hematuria Current Visit: Yes Status: Acute Assessment and plan: urology following. No valentina blood noted in catheter (6) HCAP (healthcare-associated pneumonia) Current Visit: Yes Status: Acute Assessment and plan: treatment per hospitalist. Likely a viral pneumonia (7) Dementia in Alzheimer's disease Current Visit: Yes Status: Chronic Assessment and plan: Haldol scheduled every 6 hours for agitation, lorazepam to assist with sleep ( home medications). Mr. Rogers has refused to eat or drink anything for a week. He did take a bite of applesauce with his morning pills, but refused to eat any additional. - Time Spent With Patient Total time spent is greater than 50% in coordination of care (as documented) at patient's floor/unit and/or counseling patient: - Subjective Interval history: Mr. Rogers is resting in bed. He continues to refuse and amounts of food. He did take one bite of applesause with medications. His mood has improved and he is cooperative, but he is unable to hold conversation. - Constitutional Vitals: Abnormal lab results RBC 2.77 M/mcL (4.19-5.50) L 11/22/16 04:30 Hgb 8.0 g/dL (12.9-16.9) L 11/22/16 04:30 Hct 25.5 % (37.5-50.1) L 11/22/16 04:30 MCHC 31.4 g/dL (31.6-35.5) L 11/22/16 04:30 Reactive Lymphocytes Present (Not Present) A 11/22/16 04:30 Poikilocytosis 1+ (Not Present) A 11/22/16 04:30 Ovalocytes 1+ (Not Present) A 11/22/16 04:30 VBG pH 7.29 pH Units (7.32-7.42) L 11/14/16 04:52 VBG pCO2 67 mmHg (41-51) H 11/14/16 04:52 VBG pO2 44 mmHg (25-40) H 11/14/16 04:52 VBG HCO3 32.2 mEq/L (21-27) H 11/14/16 04:52 Creatinine 0.70 mg/dL (0.72-1.25) L 11/22/16 04:30 Glucose 64 mg/dL (70-99) L 11/22/16 04:30 POC Glucose 97 (58-89) H 11/19/16 04:15 Calcium 8.4 mg/dL (8.6-10.8) L 11/22/16 04:30 Ionized Calcium 1.09 mmol/L (1.15-1.35) L 11/14/16 04:52 Troponin I 0.58 ng/mL (0-0.03) H* 11/18/16 12:20 C-Reactive Protein 135 mg/L (Less than 5) H 11/14/16 04:52 Serum Total Protein 5.5 g/dL (6.0-8.3) L 11/13/16 22:49 Albumin 2.8 g/dL (3.5-5.0) L 11/13/16 22:49 Albumin/Globulin Ratio 1.0 (1.1-2.2) L 11/13/16 22:49 Prealbumin 11.0 mg/dL (18.0-45.0) L 11/14/16 04:52 HDL Cholesterol 25 mg/dL (40-59) L 11/14/16 04:52 Free T3 1.47 pg/mL (1.71-3.71) L 11/14/16 04:52 Ur Specimen Adequacy See below A 11/14/16 13:13 Urine Color Red (Yellow) A 11/14/16 13:13 Urine Clarity Cloudy (Clear) A 11/14/16 13:13 Urine Protein >=300 mg/dL (Neg-Trace) H 11/14/16 13:13 Urine Ketones Trace mg/dL (Negative) H 11/14/16 13:13 Urine Blood Large (Negative) H 11/14/16 13:13 Urine Nitrite Positive (Negative) A 11/14/16 13:13 Urine Bilirubin Moderate (Negative) H 11/14/16 13:13 Ur Leukocyte Esterase Small (Negative) H 11/14/16 13:13 Human Metapneumovirus DETECTED (Not Detect) A 11/19/16 07:54 Staphylococcus sp PCR DETECTED (Not Detect) A 11/13/16 23:38 General appearance: Present: no acute distress - ENT ENT exam: Present: mucous membranes dry - Respiratory Respiratory exam: Present: decreased breath sounds (shallow). Absent: accessory muscle use, respiratory distress - Cardiovascular Cardiovascular exam: Present: RRR - GI/Abdominal GI/Abdominal exam: Present: normal bowel sounds, soft. Absent: tenderness - Additional comments: suprapubic catheter - Extremities Exam Extremities exam: Absent: normal inspection (dressings intact to bilateral heels ), pedal edema - Neurological Exam Neurological exam: Present: alert (unable to actively participate in conversation), no focal deficits - Skin Skin exam: Present: dry, intact (dressings intact to bilateral heels and suprapubic catheter. ), warm Palliative Quality Palliative Quality: Screen for Code Status: Yes, Screen for Goals of Care: Yes, Screen for Pain: Yes, If Pain Regimen Started, Initiate Bowel Regimen: Yes, Screen for Nausea/Vomitting: Yes Code Status: 11/14/16 03:09 Resuscitation Status: Active [RES] Routine Comment: Resuscitation Status: DNR-Comfort Care-Arrest 11/18/16 20:39 CODE [Resuscitation Status: Active] [RES] Routine Comment: Resuscitation Status: [id number] - Labs CBC & Chem 7: 11/23/16 06:03 11/22/16 04:30 Consult Discharge Plan - Plan Referrals: Jamie Santos MD [Primary Care Provider] - (Patient will follow up with doctor at the [facility]) Kian Javier DO [Partnered Physician] - 12/04/16 10:40 am
[2016-11-23 10:18] LABS: Eosinophils # 0.2 K/mcL (0.0-0.6); Hematocrit 26.9 % (37.5-50.1); Hemoglobin 8.2 g/dL (12.9-16.9); Mean Corpuscular HGB Conc 30.5 g/dL (31.6-35.5); Mean Corpuscular Hemoglobin 29.1 pg (28.0-33.3); Mean Corpuscular Volume 95.4 fL (83.0-100.0); Mean Platelet Volume 9.4 fL (9.4-12.4); Platelet Count 311 K/mcL (140-400); Red Blood Count 2.82 M/mcL (4.19-5.50); Red Cell Distribution Width 14.4 % (11.5-14.5)
[2016-11-23 12:46] LABS: Lymphocytes # 1.5 K/mcL (0.6-4.6); Monocytes # 0.3 K/mcL (0.0-1.3); Neutrophils # 6.3 K/mcL (1.6-8.9)
[2016-11-23 12:50] LABS: Anisocytosis 1+ (Not Present); Platelet Estimate Normal (Normal); Toxic Granulation Present (Not Present)
[2016-11-23 12:51] LABS: Acanthocytes 1+ (Not Present); Polychromasia 1+ (Not Present)
--- NOTE | 2016-11-23 14:37 | Internal Med Progress Note ---
Date of Encounter: 11/23/16 Time of Encounter: 10:25 - Assessment and plan (1) Acute respiratory failure with hypoxia Current Visit: Yes Status: Acute Assessment and plan: Poor overall prognosis. Discussed with Palliative care. Patient will be transitioned to comfort care per family wishes. (2) Anemia Current Visit: Yes Status: Acute Assessment and plan: Patient seen hemoglobin levels are stable. Does not appear to be having any further hematuria. Qualifiers: Qualified Code(s): D62 - Acute posthemorrhagic anemia (3) Atrial fibrillation Current Visit: Yes Status: Acute Assessment and plan: Rate controlled. Qualifiers: Qualified Code(s): I48.2 - Chronic atrial fibrillation (4) Heart failure with preserved ejection fraction Current Visit: Yes Status: Acute Assessment and plan: On Lasix. However patient not getting her medications has not been able to take them. Given that he is being transitioned to comfort care, will stop oral Lasix. (5) Pneumonia Current Visit: Yes Status: Acute Assessment and plan: Likely from viral pneumonia. Supportive care. O2 supplementation. Qualifiers: Qualified Code(s): J18.9 - Pneumonia, unspecified organism (6) Dementia in Alzheimer's disease Current Visit: Yes Status: Chronic (7) DVT prophylaxis Current Visit: Yes Status: Acute - Subjective Interval history: Patient is somnolent. Difficult to awake. Has been having intermittent pain And agitation. - Constitutional Vitals: Temp Pulse Resp BP Pulse Ox 98.1 F 84 18 127/71 92 L 11/23/16 10:18 11/23/16 10:18 11/23/16 11:05 11/23/16 10:18 11/23/16 11:05 General appearance: Present: cachectic, obese. Absent: answers questions appropriately Exam: Currently somnolent and difficult to awake. - Respiratory Respiratory exam: Present: CTAB. Absent: accessory muscle use, rales, rhonchi, wheezes - Cardiovascular Cardiovascular exam: Present: RRR, +S1, +S2. Absent: diastolic murmur, gallop, rubs, systolic murmur - GI/Abdominal GI/Abdominal exam: Present: normal bowel sounds, soft, no peritoneal signs. Absent: distended, tenderness - Extremities Exam Extremities exam: Absent: calf tenderness, cyanotic, pedal edema - Neurological Exam Neurological exam: Absent: facial droop, speech deficit Additional comments: Somnolent, difficult to awake. Internal Medicine: Result - Labs CBC & Chem 7: 11/23/16 06:03 11/22/16 04:30 Labs: Short CBC 11/23/16 Range/Units 06:03 WBC 8.3 (4.3-11.1) K/mcL Hgb 8.2 L (12.9-16.9) g/dL Hct 26.9 L (37.5-50.1) % Plt Count 311 (140-400) K/mcL Neutrophils # 6.3 (1.6-8.9) K/mcL - VTE Documentation of Mechanical Device: Intermittent pneumatic compression device Consult Discharge Plan - Plan Referrals: Jamie Santos MD [Primary Care Provider] - (Patient will follow up with doctor at the [facility]) Kian Javier DO [Partnered Physician] - 12/04/16 10:40 am - Attending Attestation This document has been at least partially created by [employer] voice recognition technology by Dr. Medrano. Errors in grammar, wording or other phrases may exist. If errors are found after the documentation is signed, they will be addressed individually in the addendum section of this document when appropriate.
[2016-11-23] MEDS: *HR* LORazepam 2 MG/ML VIAL IVP PRN ×2 (15:26→19:43)
[2016-11-23] MEDS ORDERED: *HR* LORazepam 2 MG/ML VIAL IVP SCH (21:00)
[2016-11-23 22:20] VITALS: BP 152/74
[2016-11-24] MEDS: Haloperidol Lactate 5 MG/ML VIAL IVP SCH ×2 (02:05→08:54)
[2016-11-24] MEDS: Ipratropium/Albuterol Neb 3 ML IH SCH ×2 (04:30→10:32)
[2016-11-24] MEDS: *HR* Morphine 2 MG/ML SYRINGE IVP PRN (08:54)
--- NOTE | 2016-11-24 09:34 | Discharge Summary ---
Date of Encounter: 11/24/16 Time of Encounter: 09:32 - Discharge Diagnosis (1) Acute respiratory failure with hypoxia Priority: Primary Status: Acute (2) Anemia Priority: Secondary Status: Acute Qualifiers: Anemia type: other cause Other causes of anemia: acute posthemorrhagic Qualified Code(s): D62 - Acute posthemorrhagic anemia (3) Atrial fibrillation Priority: Secondary Status: Acute Qualifiers: Atrial fibrillation type: chronic Qualified Code(s): I48.2 - Chronic atrial fibrillation (4) Heart failure with preserved ejection fraction Priority: Secondary Status: Acute (5) Pneumonia Priority: Secondary Status: Acute Qualifiers: Pneumonia type: due to unspecified organism Laterality: right Lung location: unspecified part of lung Qualified Code(s): J18.9 - Pneumonia, unspecified organism (6) Dementia in Alzheimer's disease Priority: Secondary Status: Chronic (7) DVT prophylaxis Priority: Secondary Status: Acute - Discharge Medications Home Medications: Betamethasone Gloria 0.1% Crm [Valisone 0.1%] 1 appl TP BID 10/10/16 [History] LORazepam [Ativan] 1 mg PO HS 10/10/16 [History] Nitroglycerin [Nitrostat] 0.4 mg SL AD PRN 10/10/16 [History] Valsartan/Hydrochlorothiazide [Diovan Hct 320-12.5 mg Tab] 1 tab PO DAILY [History] Haloperidol [Haldol] 5 mg PO TID 11/14/16 [History] Allergies/Adverse Reactions: Allergies ciprofloxacin [From Cipro] Allergy (Verified 11/14/16 08:15) Hives Penicillins [PCN] Allergy (Verified 11/14/16 08:15) Hives Sulfa (Sulfonamide Antibiotics) Allergy (Verified 11/14/16 08:15) Hives Date of admission: 11/14/16 03:27 Primary care physician: Jamie Santos MD Consults: 11/14/16 04:47 Consult to Nutrition [CONS] Routine Comment: Consulting Provider: NUTRITION Reason for Dietary Consult: MST Score Consult to Colliery Clerk [CONS] Routine Reason for SW Consult: Protocol 11/14/16 06:32 Consult to Urology [CONS] Routine Consulting Provider: [facility] Reason for Consult: Urinary retention patient with many years history of BPH/ prostatism/neurogenic bladder/ureteral strictures. Please evaluate and advise. Time Notified: 06:35 Call Completed: No 11/14/16 12:34 Consult to Podiatry [CONS] Routine Consulting Provider: [facility] Reason for Consult: Heel wound Call Completed: Yes 11/15/16 11:14 Consult to Cardiology [CONS] Stat Comment: Consulting Provider: [facility] Reason for Consult: A Fib with RVR Call Completed: Yes 11/17/16 23:49 Consult to Speech Therapy [CONS] Routine Comment: Evaluate, develop and implement POC Reason for Consult: Swallow Eval. Call Completed: No 11/18/16 06:52 Consult to Cardiology [CONS] Routine Comment: Consulting Provider: [facility] Reason for Consult: Elevated Trops Call Completed: No 11/18/16 07:30 Consult to Cardiology [CONS] Routine Comment: Consulting Provider: [facility] [place] Reason for Consult: Tachycardia, elevated troponin Call Completed: No 11/18/16 20:39 Consult to Pulmonology [CONS] Routine Consulting Provider: [facility] Reason for Consult: Pneumonia, hypotension. Bacteremia Call Completed: No 11/19/16 13:24 Consult to Palliative Care [CONS] Routine Comment: Consulting Provider: [facility] Discharging clinician: Anuel Medrano Anticipated date of discharge: 11/24/16 - Patient Status Disposition: Hospice - Medical Facility Condition: Serious Functional capacity at discharge: bed bound Overall status at discharge: patient is not back to baseline - Discharge Instructions Follow Up With: Jamie Santos MD [Primary Care Provider] - ([facility] Kian Javier DO [Partnered Physician] - 12/04/16 10:40 am Hospital course: Mr. Rogers is a 81 year old male patient with history of Alzheimer's dementia, coronary artery disease, hyperlipidemia and hypertension, TIA, atrial fibrillation, peripheral artery disease was admitted here with complaints of abdominal pain and hypotension. He was also having urinary retention of fluid. Urology was consulted. The patient initially required dopamine to support his blood pressure. He was also placed on antibiotics to treat pneumonia. His respiratory panel was positive for human metapneumovirus. He was also having hematuria and anemia. Urology evaluated him and recommended placement of suprapubic catheter. Patient was closely followed in the ICU and has had blood transfusions for his anemia. Palliative care was consulted and given the patient's advanced age along with underlying comorbidities, his CODE STATUS was changed and his has now been made DNR with comfort care only. At this time with family and patient's wishes are to transition patient to inpatient hospice. As such patient will be discharged from [facility] floor and will be admitted to inpatient hospice for palliative care. Patient has been very somnolent and has not been taking his oral medications for the past few days. - Time Spent with Patient Total time spent providing and/or coordinating discharge services: Less than 30 minutes (20 min) - Constitutional Vitals: Temp Pulse Resp BP Pulse Ox 97.5 F L 88 20 152/74 88 L 11/23/16 22:19 11/23/16 22:19 11/23/16 22:19 11/23/16 22:19 11/23/16 22:19 General appearance: Present: cachectic, obese. Absent: answers questions appropriately - Respiratory Respiratory exam: Present: CTAB. Absent: accessory muscle use, rales, rhonchi, wheezes - Cardiovascular Cardiovascular exam: Present: RRR, +S1, +S2. Absent: diastolic murmur, gallop, rubs, systolic murmur - GI/Abdominal GI/Abdominal exam: Present: normal bowel sounds, soft, no peritoneal signs. Absent: distended, tenderness - VTE Documentation of Mechanical Device: Intermittent pneumatic compression device - Attending Attestation This document has been at least partially created by [employer] voice recognition technology by Dr. Medrano. Errors in grammar, wording or other phrases may exist. If errors are found after the documentation is signed, they will be addressed individually in the addendum section of this document when appropriate.
[2016-11-24] MEDS: *HR* LORazepam 2 MG/ML VIAL IVP PRN (10:00)
[2016-11-24] MEDS ORDERED: *HR* LORazepam Oral Conc 2 MG/ML SL PRN (10:24)
[2016-11-24] MEDS ORDERED: Bisacodyl 10 MG RECTAL SUPPOSITORY RC PRN (10:26)
[2016-11-24] MEDS ORDERED: *HR* FentaNYL PATCH 12 MCG PATCH TD SCH (10:30)
[2016-11-24] MEDS ORDERED: Morphine Oral CONC 5 MG/0.25 ML ORAL.SYG PO SCH (10:30)
[2016-11-24] MEDS ORDERED: Morphine Oral CONC 5 MG/0.25 ML ORAL.SYG PO PRN (10:41)
[2016-11-24] MEDS ORDERED: *HR* Morphine 2 MG/ML SYRINGE IVP PRN (10:41)
--- NOTE | 2016-11-24 11:05 | Event Note ---
Date of Encounter: 11/24/16 Time of Encounter: 11:04 Mr. Rogers continues to be agitated and combative at times. This is likely related to metabolic encephalopathy and possible terminal delerium. Family wishes for patient to remain comfortable. Will transition to general in- patient hospice care for symptom management.
--- NOTE | 2016-11-24 11:49 | Event Note ---
Date of Encounter: 11/24/16 Time of Encounter: 11:47 Hospice medical driver certification of terminal illness: Hospice benefit. Start: 11/24/2016 Hospice benefit. In: +90 days Palliative performance scale: 20-30% History: The patient has a history of gross hematuria as well as anemia secondary to that. In addition has cellulitis and abscess of the foot. An healthcare associated pneumonia. This in addition to a history of dementia of Alzheimer's type. The patient now has acute encephalopathy secondary to the anemia, and infections. This is resulting in a terminal delirium and the patient's O longer able to take in any food or drink. Family is decided not to pursue any further aggressive care therapy and therefore I find that These findings support a life expectancy of 6 months or less. I attest that I have compose the above narrative based on my review of the patient's medical records, and or on my examination of the patient. Bhupendra Bey M.D. Associate medical laboratory scientist. [facility]
== END 2016-11-24 11:30 | disposition hospice, inpatient (51) | DRG 871 ==
LOC: 2NNU 22:38 → EMEROO 22:38 → SUATTDRO 11-14 03:27 → 2NNU 11-14 03:56 → ICNU 11-18 20:44 → 2ANU 11-21 17:19
PROVIDERS: ADMIT Pediatrics; ATTEND Internal Medicine

== ENCOUNTER 2016-11-24 10:27 | Inpatient (IN) ==
[2016-11-24] MEDS ORDERED: Ondansetron ODT 4 MG TAB.RAPDIS SL PRN (11:08)
[2016-11-24] MEDS ORDERED: *HR* Morphine 2 MG/ML SYRINGE IVP PRN (11:08)
[2016-11-24] MEDS ORDERED: *HR* LORazepam 2 MG/ML VIAL IVP PRN (11:08)
[2016-11-24] MEDS ORDERED: *HR* LORazepam Oral Conc 2 MG/ML PO PRN ×2 (11:08→15:44)
[2016-11-24] MEDS ORDERED: Bisacodyl 10 MG RECTAL SUPPOSITORY RC PRN (11:08)
[2016-11-24] MEDS ORDERED: Atropine Sulfate 1% 40 DROP/2 ML BOTTLE SL PRN (11:08)
[2016-11-24] MEDS ORDERED: *HR* FentaNYL PATCH 12 MCG PATCH TD SCH (11:15)
[2016-11-24] MEDS ORDERED: Haloperidol Lactate 5 MG/ML VIAL IVP SCH (11:15)
[2016-11-24] MEDS ORDERED: *HR* Belladonna Alkaloids/Opium 30 MG RECTAL SUPPOSITORY RC PRN (11:15)
--- NOTE | 2016-11-24 11:26 | Palliative - Consult Note ---
Date of Encounter: 11/24/16 Time of Encounter: 11:22 - Assessment and Plan (1) Metabolic encephalopathy Status: Acute Assessment and plan: Metabolic encephalopathy related to infectious sources vs. acute blood loss anemia vs. terminal delirium. Mr. Rogers has not had any oral intake since . He refuses to eat or drink. His family is supportive of comfort care. Adjust medications accordingly. Mr. Rogers has periods of agitation. He is requiring Haldol around the clock with lorazepam PRN. (2) Acute respiratory failure with hypoxia Status: Acute (3) Delirium due to conditions classified elsewhere Status: Acute Assessment and plan: Delirium due to malnutrition vs. infection vs. acute blood loss anemia vs. stool impaction vs. terminal delirium. Will give bisacodyl rectal suppository today and monitor for BM. May need to give fleets enema. Mr. Rogers's family has elected not to pursue aggressive measures for nutritional support based on the patient's previously known intent. No feeding tubes will be placed. No further lab word or diagnostic testing per family request. Will adjust medications accordingly to treat delirium. Currently on scheduled Haloperidol 4mg IV every 6 hours with lorazepam every 4 hours as needed. Will start Fentanyl patch for pain control with the morphine as needed for breakthrough pain to cover delirium related to pain crisis. Family support at bedside. Given his rapid decline in health and agitation/delirium, he is not safe for transition home. He will remain in the hospital under the care of general in- patient hospice services for intense symptom management. (4) Goals of care, counseling/discussion Status: Acute (5) Gross hematuria Status: Acute Assessment and plan: Upon his prior admission to the hospital, Mr. Rogers developed acute urinary retention that required the placement of a suprapubic catheter per urology. He then had hematuria resulting in significant anemia. Mr. Rogers's family elected to pursue comfort care measures to respect his previously known wishes. (6) Dementia in Alzheimer's disease Status: Chronic Assessment and plan: Prior to admission, Mr. Rogers has been functional. He was able to complete most ALD's with some assistance. He is no longer able to communicate or cooperate with exam. Adjust medications and treatment plan accordingly. (7) Protein-calorie malnutrition, moderate Status: Chronic Assessment and plan: Mr. Rogers has not had any measurable oral intake since 11/15/16. His family supports comfort care. No feeding tubes. (8) Cellulitis and abscess of foot Status: Acute Assessment and plan: wound care (9) Constipation by delayed colonic transit Status: Acute Assessment and plan: Bisacodyl rectal suppository today and PRN. (10) Pain Status: Acute Assessment and plan: Generalized pain related to syndrome of imminent demonstrated by increased agitation and restlessness. Will treat pain with Fentanyl patch and Morphine as needed for breakthrough pain. Palliative-CN HPI - Data of Consult Patient: known to practice within the last 3 years Consult date: 11/24/16 Requesting Physician: Bhupendra Bey MD - Consult Narrative Palliative Care/Comfort Measures: Palliative care Reason for consult: Symptom Mangement History of present illness: Mr. Rogers is a 81 year old male known to the palliative care team from prior admission. Mr. Rogers was initially admitted to [facility] on 11/14/2016 with complaints of hypotension, urinary tract infection, viral pneumonia. He was hospitalized for 10 days total. Early in that admission, Mr. Rogers developed acute urinary retention that required a placement of a suprapubic catheter per urology. Following that catheter placement, he began having hematuria that caused acute blood loss anemia. He was also tested positive for the human Metapneumono virus, that was felt to be the likely cause of his pneumonia. Mr. Rogers stopped taking in oral intake on 11/15/2016. Since then, he has become increasingly more agitated and restless. His family would like to continue to support his prior known intent of comfort measures. No feeding tubes will be placed. Mr. Rogers will be transitioned to general inpatient hospice care for management of his metabolic encephalopathy and acute delirium. Delirium could be multifactorial as the patient has had minimal oral intake for 9 days, and poor nutrition prior to that. This could also be related to stool retention as he has not had a bowel movement in nearly 8 days, pain, or terminal delirium. Medications and treatment plan will be adjusted to treat the conditions that we are able to. At this time, given his level of encephalopathy and delirium, he is not safe for transition out of the hospital. Family members are looking into soaker helper at home, with the intent to transfer him home with hospice care once he is stabilized. We will continue to assess symptom management. CC: Bhupendra Bey MD Past Med Surg Social Fam HX - Past Medical History Source: old records reviewed, obtained from family Medical history: arthritis, atrial fibrillation, coronary artery disease, dementia, GERD, hyperlipidemia, hypertension, myocardial infarction, osteoporosis, peripheral artery disease (Carotid artery atherosclerosis. Moderate 40-59% stenosis of the right ICA versus nonstenotic plaque of left ICA. ), renal disease (Urinary retention. BPH/prostatism. Recurrent neurogenic bladder. History of ureteral stenosis.), TIA (History of TIA with transient expressive aphasia. History of TIA with gait disturbance.), valvular heart disease Psychiatric history: anxiety, other (dementia) - Past Surgical History Surgical History: angioplasty/stent, appendectomy, cataract, herniorrhaphy, orthopedic, other (Shoulder surgery. Cervical spine surgery.), sinus surgery ( Tonsillectomy- adenoidectomy), other (Prostate surgery.) - Social History Smoking Status: Former smoker Smokeless Tobacco Status: No Alcohol use: none Drug use: none Medications and Allergies Betamethasone Gloria 0.1% Crm [Valisone 0.1%] 1 appl TP BID 10/10/16 [History] LORazepam [Ativan] 1 mg PO HS 10/10/16 [History] Nitroglycerin [Nitrostat] 0.4 mg SL AD PRN 10/10/16 [History] Valsartan/Hydrochlorothiazide [Diovan Hct 320-12.5 mg Tab] 1 tab PO DAILY [History] Haloperidol [Haldol] 5 mg PO TID 11/14/16 [History] Allergies ciprofloxacin [From Cipro] Allergy (Verified 11/14/16 08:15) Hives Penicillins [PCN] Allergy (Verified 11/14/16 08:15) Hives Sulfa (Sulfonamide Antibiotics) Allergy (Verified 11/14/16 08:15) Hives ROS unobtainable: due to mental status Palliative Quality Palliative Quality: Screen for Code Status: Yes, Screen for Goals of Care: Yes, Screen for Pain: Yes, If Pain Regimen Started, Initiate Bowel Regimen: Yes, Screen for Nausea/Vomitting: Yes Code Status: 11/24/16 11:08 Resuscitation Status: Active [RES] Routine Comment: Resuscitation Status: DNR-Comfort Care
[2016-11-24] MEDS: Morphine Oral CONC 5 MG/0.25 ML ORAL.SYG PO PRN ×6 (12:30→22:17)
[2016-11-24] MEDS: Haloperidol Oral Conc 10 MG/5 ML UDC PO SCH ×2 (12:30→17:11)
--- NOTE | 2016-11-24 13:13 | Pallative History & Physical ---
Date of Encounter: 11/24/16 Time of Encounter: 13:10 Assessment and Plan (1) Constipation by delayed colonic transit Current visit: Yes Status: Acute Patient placed on bowel regimen, if he is able to take by mouth sennosides with docusate will be given, patient also has suppositories which will be given she starts having bowel movements. (2) Pain Current visit: Yes Status: Acute Patient has been crying out in pain, patient has aggressive pain management program laid out. Both IV, and sublingual. Continue to watch. We will adjust as needed. (3) Delirium due to conditions classified elsewhere Current visit: No Status: Acute Delirium at this time is felt to be secondary to infection and/or possible anemia. May also be terminal in nature. Possibility is urinary to constipation. We will actively work on getting the patient a bowel movement and consider for digital disimpaction if needed. (4) Goals of care, counseling/discussion Current visit: No Status: Acute DO NOT RESUSCITATE Comfort Care, patient is being placed on the general inpatient hospice service for treatment of acute delirium and metabolic encephalopathy. Internal Medicine - H&P: HPI Admitted From: Intrahospital Transfer Plans for Post Hospital Care: Hospice - Home History of present illness: Mr. Rogers is a 81 year old male Was initially admitted for hypotension and urinary tract infection and viral pneumonia. His hospitalized for 10 days, early in the admission H&P had acute urinary retention that required placement of a suprapubic catheter . After The catheter placement he began having hematuria that caused acute blood loss anemia. He tested positive for medical virus that was felt to be the cause of his pneumonia. Patient stopped eating proximately one and a half weeks ago is become more delirious this is felt to be due to ENCEPHALOPATHY secondary to anemia, infection and possible terminal delirium as well. Luzmaria has decided not to pursue any further aggressive treatment. Patient is being admitted to general inpatient hospice for treatment of acute delirium which is felt to be delirium. If and when The patient stabilizes the plan will be to transfer home with hospice care. Past Med Surg Social Fam HX - Past Medical History Medical history: arthritis, atrial fibrillation, coronary artery disease, dementia, GERD, hyperlipidemia, hypertension, myocardial infarction, osteoporosis, peripheral artery disease (Carotid artery atherosclerosis. Moderate 40-59% stenosis of the right ICA versus nonstenotic plaque of left ICA. ), renal disease (Urinary retention. BPH/prostatism. Recurrent neurogenic bladder. History of ureteral stenosis.), TIA (History of TIA with transient expressive aphasia. History of TIA with gait disturbance.), valvular heart disease Psychiatric history: anxiety, other (dementia) - Past Surgical History Surgical History: angioplasty/stent, appendectomy, cataract, herniorrhaphy, orthopedic, other (Shoulder surgery. Cervical spine surgery.), sinus surgery ( Tonsillectomy- adenoidectomy), other (Prostate surgery.) - Social History Smoking Status: Former smoker Smokeless Tobacco Status: No Alcohol use: none Drug use: none Internal Medicine - H&P: Meds Betamethasone Gloria 0.1% Crm [Valisone 0.1%] 1 appl TP BID 10/10/16 [History] LORazepam [Ativan] 1 mg PO HS 10/10/16 [History] Nitroglycerin [Nitrostat] 0.4 mg SL AD PRN 10/10/16 [History] Valsartan/Hydrochlorothiazide [Diovan Hct 320-12.5 mg Tab] 1 tab PO DAILY [History] Haloperidol [Haldol] 5 mg PO TID 11/14/16 [History] Allergies ciprofloxacin [From Cipro] Allergy (Verified 11/14/16 08:15) Hives Penicillins [PCN] Allergy (Verified 11/14/16 08:15) Hives Sulfa (Sulfonamide Antibiotics) Allergy (Verified 11/14/16 08:15) Hives ROS unobtainable: due to mental status Palliative Care-Exam - Constitutional General appearance: Present: no acute distress - Head Head Exam: Present: atraumatic, normal inspection, normocephalic - Eye Eye exam: Present: normal appearance - ENT ENT exam: Present: mucous membranes dry - Neck Neck exam: Present: normal inspection - Respiratory Respiratory exam: Present: decreased breath sounds - Cardiovascular Cardiovascular exam: Present: RRR - GI/Abdominal Exam GI/Abdominal exam: Present: normal bowel sounds, soft. Absent: tenderness - Catheter Type: Suprapubic - Extremities Exam Extremities exam: Present: normal inspection. Absent: pedal edema, tenderness - Neurological Exam Neurological exam: Present: altered (Patient has been agitated, is now sleeping I did not attempt awaken. However by history from the nursing staff he has not been oriented.) - Psychiatric Psychiatric exam: Absent: agitated, anxious (None now, however earlier he was anxious and agitated medications of help.) - Skin Skin exam: Present: dry, warm Palliative Quality Palliative Quality: Screen for Code Status: Yes, Screen for Goals of Care: Yes, Screen for Pain: Yes, If Pain Regimen Started, Initiate Bowel Regimen: Yes, Screen for Nausea/Vomitting: Yes Code Status: 11/24/16 11:08 Resuscitation Status: Active [RES] Routine Comment: Resuscitation Status: DNR-Comfort Care
[2016-11-24] MEDS ORDERED: Ziprasidone injection 20 MG/ML VIAL IM ONE (16:47)
[2016-11-24] MEDS ORDERED: Ziprasidone injection 20 MG/ML VIAL IM PRN (17:52)
[2016-11-24] MEDS: *HR* LORazepam Oral Conc 2 MG/ML PO PRN ×2 (18:52→22:18)
[2016-11-24] MEDS: Sennosides/Docusate Sodium TABLET PO SCH (20:32)
[2016-11-24] MEDS: Bisacodyl 10 MG RECTAL SUPPOSITORY RC SCH (20:41)
[2016-11-25] MEDS: Morphine Oral CONC 5 MG/0.25 ML ORAL.SYG PO PRN ×5 (02:13→21:34)
[2016-11-25] MEDS: *HR* LORazepam Oral Conc 2 MG/ML PO PRN ×4 (02:14→21:33)
--- NOTE | 2016-11-25 09:12 | Palliative Progress Note ---
Date of Encounter: 11/25/16 Time of Encounter: 07:20 - Assessment and plan (1) Constipation by delayed colonic transit Current Visit: Yes Status: Acute Assessment and plan: Patient placed on bowel regimen, at this time this is suppository only. Utilize as family wishes. (2) Pain Current Visit: Yes Status: Acute Assessment and plan: Patient has been crying out in pain, patient has aggressive pain management program laid out. Continue to watch. We will adjust as needed. (3) Delirium due to conditions classified elsewhere Current Visit: No Status: Acute Assessment and plan: Delirium at this time is felt to be secondary to infection and/or possible anemia. May also be terminal in nature. Possibility is urinary to constipation. (4) Goals of care, counseling/discussion Current Visit: No Status: Acute Assessment and plan: DO NOT RESUSCITATE Comfort Care, patient is being placed on the general inpatient hospice service for treatment of acute delirium and metabolic encephalopathy. - Time Spent With Patient Total time spent is greater than 50% in coordination of care (as documented) at patient's floor/unit and/or counseling patient: - Subjective Interval history: Medications are currently effective. Ativan and Duragesic have done much better for him than haloperidol dose. We will continue current medications patient is comfortable at this time. - Constitutional General appearance: Present: no acute distress - Head Head exam: Present: atraumatic, normal inspection - Eye Eye exam: Present: normal appearance - Respiratory Respiratory exam: Present: decreased breath sounds - Cardiovascular Cardiovascular exam: Present: RRR - GI/Abdominal GI/Abdominal exam: Present: hypoactive bowel sounds, soft. Absent: tenderness - Extremities Exam Extremities exam: Present: normal inspection. Absent: pedal edema, tenderness - Neurological Exam Neurological exam: Present: altered - Psychiatric Psychiatric exam: Absent: agitated, anxious - Skin Skin exam: Present: dry, warm Palliative Quality Palliative Quality: Screen for Code Status: Yes, Screen for Goals of Care: Yes, Screen for Pain: Yes, If Pain Regimen Started, Initiate Bowel Regimen: Yes, Screen for Nausea/Vomitting: Yes Code Status: 11/24/16 11:08 Resuscitation Status: Active [RES] Routine Comment: Resuscitation Status: DNR-Comfort Care Consult Discharge Plan - Plan Referrals: NO,PCP [Primary Care Provider] -
[2016-11-25] MEDS: Sennosides/Docusate Sodium TABLET PO SCH ×2 (09:33→22:00)
[2016-11-25] MEDS: Bisacodyl 10 MG RECTAL SUPPOSITORY RC SCH (22:00)
[2016-11-26] MEDS ORDERED: Scopolamine Patch 1.5 MG PATCH.TD72 TD SCH (07:30)
[2016-11-26 10:16] VITALS: BP 92/60
[2016-11-26] MEDS: Sennosides/Docusate Sodium TABLET PO SCH (10:48)
[2016-11-26] MEDS: Morphine Oral CONC 5 MG/0.25 ML ORAL.SYG PO PRN (11:23)
--- NOTE | 2016-11-26 13:50 | Palliative Progress Note ---
Date of Encounter: 11/26/16 Time of Encounter: 07:05 - Assessment and plan (1) Constipation by delayed colonic transit Current Visit: Yes Status: Acute Assessment and plan: Patient placed on bowel regimen, at this time this is suppository only. Utilize as family wishes. (2) Pain Current Visit: Yes Status: Acute Assessment and plan: Patient has been crying out in pain, patient has aggressive pain management program laid out. Continue to watch. We will adjust as needed. She is comfortable at this time no changes today. (3) Delirium due to conditions classified elsewhere Current Visit: No Status: Acute Assessment and plan: Delirium at this time is felt to be secondary to infection and/or possible anemia. May also be terminal in nature. For medication has currently decreased. Continue to watch (4) Goals of care, counseling/discussion Current Visit: No Status: Acute Assessment and plan: DO NOT RESUSCITATE Comfort Care, patient is being placed on the general inpatient hospice service for treatment of acute delirium and metabolic encephalopathy. History for medications is markedly decreased I believe him to be very close to passing. I believe that he continues to be eligible for general inpatient due to the continued see with which he has had to be reevaluated. Stabilize, however at this time I believe he continues to be GIP criteria. - Time Spent With Patient Total time spent is greater than 50% in coordination of care (as documented) at patient's floor/unit and/or counseling patient: - Subjective Interval history: Medications are currently effective. She has needs for medication has dropped off markedly. He continues to be comfortable. - Constitutional General appearance: Present: no acute distress - Head Head exam: Present: atraumatic, normal inspection - Eye Eye exam: Present: normal appearance - Respiratory Respiratory exam: Present: decreased breath sounds - Cardiovascular Cardiovascular exam: Present: RRR, tachycardia - GI/Abdominal GI/Abdominal exam: Present: hypoactive bowel sounds, soft. Absent: normal bowel sounds, tenderness - Extremities Exam Extremities exam: Present: normal inspection. Absent: pedal edema, tenderness - Neurological Exam Neurological exam: Present: altered - Psychiatric Psychiatric exam: Absent: agitated, anxious - Skin Skin exam: Present: dry, warm Palliative Quality Palliative Quality: Screen for Code Status: Yes, Screen for Goals of Care: Yes, Screen for Pain: Yes, If Pain Regimen Started, Initiate Bowel Regimen: Yes, Screen for Nausea/Vomitting: Yes Code Status: 11/24/16 11:08 Resuscitation Status: Active [RES] Routine Comment: Resuscitation Status: DNR-Comfort Care Consult Discharge Plan - Plan Referrals: NO,PCP [Non-Partnered Physician] -
[2016-11-26] MEDS: *HR* LORazepam Oral Conc 2 MG/ML PO PRN (15:02)
--- NOTE | 2016-11-26 17:34 | Death Note ---
Discharge Sum: Summary - Date and Time Date of admission: 11/24/16 11:36 Date of : 11/26/16 Time of : 17:25 - Summary Details: pt on [facility] hospice service for metabolic encephalopthy d/t hypotension anemia and viarl pneumonia pt's delerium was agressivly managed and pt passed comfortably thisafternoon at 1725 with family present cod respiratoy failure d/t viarl neumonia comorbititiers anemai, dementia gerd, cad tia former smoker - Additional Data Confirmation of as documented by pronouncing clinician: no pulse, no respirations, no heart sounds Family: at bedside Attending/PCP notified?: Yes Attending physician: Bhupendra Bey MD Was code activated?: No Autopsy requested?: No bench examiner notified?: No Organ bank notified?: Yes Advance directives: Yes Hospice patient?: Yes Discharge Sum: Diag - PCOD Probable Cause of : Respiratory arrest Discharge Sum: Prov - Provider Primary care physician: Michael Triplett Jr, MD Consults: 11/24/16 11:09 Consult to Palliative Care [CONS] Routine Comment: Consulting Provider: Palliative Care [place]en
== END 2016-11-26 19:00 | disposition expired | DRG 193 ==
LOC: 2ANU 11:36
PROVIDERS: ADMIT Family Medicine Hospice and Palliative Medicine; ATTEND Family Medicine Hospice and Palliative Medicine